=== PATIENT | male | born 1980 | race Caucasian/White ===

== ENCOUNTER 2016-06-23 20:22 | Observation (INO) | payer OTHER ==
[2016-06-23] MEDS ORDERED: chlordiazePOXIDE 25 MG CAP PO STA (20:53)
--- NOTE | 2016-06-23 21:07 | ED ---
General Adult HPI - General Chief complaint: Recheck/Abnormal Lab/Rx Stated complaint: hypothermia Time Seen by Provider: 06/23/16 20:39 Source: patient, RN notes reviewed Mode of arrival: ambulatory Limitations: no limitations - History of Present Illness Initial comments: This patient is a 36-year-old man who presents to be evaluated for exposure. Patient states he had been outside fishing, and had fall asleep. He also admits to having been drinking alcohol earlier. The patient states that when he woke he found that he was very cold and could not stop shaking. The patient denies any pain to the extremities. -: hour(s) Associated Symptoms: weakness Treatments Prior to Arrival: none - Related Data Home Medications Medication Instructions Recorded Confirmed Oahtvaerinxbay-WM-Ehappfreum 1 tab PO DAILY 06/23/16 06/23/16 [Folbic] Thiamine [Vitamin B-1] 100 mg PO BID 06/23/16 06/24/16 Previous Rx's Medication Instructions Recorded LORazepam [Ativan] 1 mg PO Q4HR PRN #30 tab 06/14/16 Allergies Allergy/AdvReac Type Severity Reaction Status Date / Time chocolate flavor Allergy Rash/Hives Verified 06/23/16 21:08 coconut oil Allergy Rash/Hives Verified 06/23/16 21:08 pineapple Allergy Rash/Hives Verified 06/23/16 21:08 Review of Systems ROS Statement: Those systems with pertinent positive or pertinent negative responses have been documented in the HPI. ROS Other: All systems not noted in ROS Statement are negative. Constitutional: Reports: chills, weakness. Denies: fever Respiratory: Denies: cough, dyspnea Cardiovascular: Denies: chest pain, syncope Gastrointestinal: Denies: abdominal pain, vomiting, diarrhea Genitourinary: Denies: dysuria, hematuria Musculoskeletal: Denies: back pain Skin: Denies: rash Neurological: Reports: weakness (Generalized). Denies: headache, paresthesias Past Medical History Past Medical History: Seizure Disorder Additional Past Medical History / Comment(s): VERTIGO IN PAST,ETOH ABUSE, WITHDRAWLS/DT"S. SEIZURE D/T ETOH. History of Any Multi-Drug Resistant Organisms: None Reported Past Surgical History: No Surgical Hx Reported Additional Past Surgical History / Comment(s): RT WRIST Past Anesthesia/Blood Transfusion Reactions: No Reported Reaction Additional Past Anesthesia/Blood Transfusion Reaction / Comment(s): CLAUSTERPHOBIA Past Psychological History: No Psychological Hx Reported Smoking Status: Never smoker Past Alcohol Use History: Abuse, Daily, Heavy Additional Past Alcohol Use History / Comment(s): UP TO CASE /DAY Past Drug Use History: None Reported - Past Family History Mother Family Medical History: Fibromyalgia, Rheumatoid Arthritis (RA) Father Family Medical History: Osteoarthritis (OA) Additional Family Medical History / Comment(s): BACK PROBLEMS General Exam Limitations: no limitations General appearance: alert, in no apparent distress, appears intoxicated Head exam: Present: atraumatic, normocephalic Eye exam: Present: normal appearance, nystagmus. Absent: scleral icterus, conjunctival injection ENT exam: Present: mucous membranes dry Neck exam: Present: normal inspection, full ROM Respiratory exam: Present: normal lung sounds bilaterally. Absent: respiratory distress, wheezes, rales, rhonchi, stridor Cardiovascular Exam: Present: regular rate, normal rhythm, normal heart sounds. Absent: systolic murmur, diastolic murmur, rubs, gallop GI/Abdominal exam: Present: soft. Absent: distended, tenderness, guarding, rebound, mass Extremities exam: Present: normal inspection, normal capillary refill, other ( The patient does not have any obvious areas of frostbite injury.). Absent: pedal edema, calf tenderness Back exam: Present: normal inspection. Absent: CVA tenderness (R), CVA tenderness (L) Skin exam: Present: warm, dry, intact, normal color, other (The patient does not have any obvious areas of frostbite injury. There is 1 approximately 2 cm area of blanched skin to the knee last backed of the great toe, but this does appear to be more consistent with a blister then with a frostbite). Absent: rash Course Vital Signs 06/23/16 06/23/16 06/23/16 20:44 21:12 22:15 Temperature 95.2 F L 95.5 F L 97.3 F L Pulse Rate 80 89 74 Respiratory 18 18 18 Rate Blood Pressure 133/69 137/72 111/54 O2 Sat by Pulse 100 98 96 Oximetry 06/23/16 22:53 Temperature 97.3 F L Pulse Rate 90 Respiratory 18 Rate Blood Pressure 104/53 O2 Sat by Pulse 98 Oximetry EKG Findings - EKG Results: EKG: interpreted by JIM HUMPHREYL, sinus rhythm (Rate 76 bpm), normal axis, normal QRS, normal ST/T - CO, Pacemaker, Normal: Normal tracing: normal tracing Medical Decision Making - Lab Data Result diagrams: 06/23/16 21:25 06/23/16 21:25 Lab Results 06/23/16 06/23/16 06/23/16 Range/Units 21:16 21:25 21:25 WBC 4.2 (3.8-10.6) k/uL RBC 4.90 (4.30-5.90) m/uL Hgb 15.1 (13.0-17.5) gm/dL Hct 47.7 (39.0-53.0) % MCV 97.3 (80.0-100.0) fL MCH 30.8 (25.0-35.0) pg MCHC 31.7 (31.0-37.0) g/dL RDW 14.3 (11.5-15.5) % Plt Count 356 D (150-450) k/uL Neutrophils % (Manual) 60.0 % Lymphocytes % (Manual) 34.0 % Monocytes % (Manual) 5.0 % Eosinophils % (Manual) 1.0 % Neutrophils # (Manual) 2.5 (1.3-7.7) k/uL Lymphocytes # (Manual) 1.4 (1.0-4.8) k/uL Monocytes # (Manual) 0.2 (0-1.0) k/uL Eosinophils # (Manual) 0.0 (0-0.7) k/uL Nucleated RBCs 0 (0-0) /100 WBC Manual Slide Review Performed RBC Morphology Normal Sodium 149 H (137-145) mmol/L Potassium 4.9 (3.5-5.1) mmol/L Chloride 103 (98-107) mmol/L Carbon Dioxide 30 (22-30) mmol/L Anion Gap 16 mmol/L BUN 7 L (9-20) mg/dL Creatinine 0.50 L (0.66-1.25) mg/dL Est GFR (MDRD) Af Amer >60 (>60 ml/min/1.73 sqM) Est GFR (MDRD) Non-Af >60 (>60 ml/min/1.73 sqM) Glucose 96 (74-99) mg/dL POC Glucose (mg/dL) 79 (75-99) mg/dL POC Glu [employer] ID Norma Johnson Calcium 9.2 (8.4-10.2) mg/dL Total Bilirubin 0.3 (0.2-1.3) mg/dL AST 71 H (17-59) U/L ALT 104 H (21-72) U/L Alkaline Phosphatase 69 (38-126) U/L Troponin I (0.000-0.034) ng/mL Total Protein 7.9 (6.3-8.2) g/dL Albumin 4.9 (3.5-5.0) g/dL Urine Color Urine Appearance (Clear) Urine pH (5.0-8.0) Ur Specific [place] (1.001-1.035) Urine Protein (Negative) Urine Glucose (UA) (Negative) Urine Ketones (Negative) Urine Blood (Negative) Urine Nitrate (Negative) Urine Bilirubin (Negative) Urine Urobilinogen (<2.0) mg/dL Ur Leukocyte Esterase (Negative) Urine WBC (0-5) /hpf Hyaline Casts (0-2) /lpf Granular Casts (0) /lpf Urine Mucus (None) /hpf Urine Opiates Screen (NotDetected) Ur Oxycodone Screen (NotDetected) Urine Methadone Screen (NotDetected) Ur Propoxyphene Screen (NotDetected) Ur Barbiturates Screen (NotDetected) U Tricyclic Antidepress (NotDetected) Ur Phencyclidine Scrn (NotDetected) Ur Amphetamines Screen (NotDetected) U Methamphetamines Scrn (NotDetected) U Benzodiazepines Scrn (NotDetected) Urine Cocaine Screen (NotDetected) U Marijuana (THC) Screen (NotDetected) Serum Alcohol 432 mg/dL 06/23/16 06/23/16 06/23/16 Range/Units 21:25 21:31 21:31 WBC (3.8-10.6) k/uL RBC (4.30-5.90) m/uL Hgb (13.0-17.5) gm/dL Hct (39.0-53.0) % MCV (80.0-100.0) fL MCH (25.0-35.0) pg MCHC (31.0-37.0) g/dL RDW (11.5-15.5) % Plt Count (150-450) k/uL Neutrophils % (Manual) % Lymphocytes % (Manual) % Monocytes % (Manual) % Eosinophils % (Manual) % Neutrophils # (Manual) (1.3-7.7) k/uL Lymphocytes # (Manual) (1.0-4.8) k/uL Monocytes # (Manual) (0-1.0) k/uL Eosinophils # (Manual) (0-0.7) k/uL Nucleated RBCs (0-0) /100 WBC Manual Slide Review RBC Morphology Sodium (137-145) mmol/L Potassium (3.5-5.1) mmol/L Chloride (98-107) mmol/L Carbon Dioxide (22-30) mmol/L Anion Gap mmol/L BUN (9-20) mg/dL Creatinine (0.66-1.25) mg/dL Est GFR (MDRD) Af Amer (>60 ml/min/1.73 sqM) Est GFR (MDRD) Non-Af (>60 ml/min/1.73 sqM) Glucose (74-99) mg/dL POC Glucose (mg/dL) (75-99) mg/dL POC Glu [employer] ID Calcium (8.4-10.2) mg/dL Total Bilirubin (0.2-1.3) mg/dL AST (17-59) U/L ALT (21-72) U/L Alkaline Phosphatase (38-126) U/L Troponin I <0.012 (0.000-0.034) ng/mL Total Protein (6.3-8.2) g/dL Albumin (3.5-5.0) g/dL Urine Color Light Yellow Urine Appearance Clear (Clear) Urine pH 5.0 (5.0-8.0) Ur Specific [place] 1.005 (1.001-1.035) Urine Protein 1+ H (Negative) Urine Glucose (UA) Negative (Negative) Urine Ketones Negative (Negative) Urine Blood Trace H (Negative) Urine Nitrate Negative (Negative) Urine Bilirubin Negative (Negative) Urine Urobilinogen <2.0 (<2.0) mg/dL Ur Leukocyte Esterase Negative (Negative) Urine WBC <1 (0-5) /hpf Hyaline Casts 8 H (0-2) /lpf Granular Casts 12 (0) /lpf Urine Mucus Rare H (None) /hpf Urine Opiates Screen Not Detected (NotDetected) Ur Oxycodone Screen Not Detected (NotDetected) Urine Methadone Screen Not Detected (NotDetected) Ur Propoxyphene Screen Not Detected (NotDetected) Ur Barbiturates Screen Not Detected (NotDetected) U Tricyclic Antidepress Not Detected (NotDetected) Ur Phencyclidine Scrn Not Detected (NotDetected) Ur Amphetamines Screen Not Detected (NotDetected) U Methamphetamines Scrn Not Detected (NotDetected) U Benzodiazepines Scrn Detected H (NotDetected) Urine Cocaine Screen Not Detected (NotDetected) U Marijuana (THC) Screen Not Detected (NotDetected) Serum Alcohol mg/dL Disposition Clinical Impression: Alcoholic intoxication, Alcohol withdrawal delirium, Hypothermia Disposition: ADMITTED IP TO THIS [facility] Condition: Fair
[2016-06-23 21:17] LABS: Glucose,Whole Blood 79 mg/dL (75-99)
[2016-06-23 21:29] LABS: Aty Lym Flag Slight; HCT 47.7 % (39.0-53.0); HDW 2.39; HGB 15.1 gm/dL (13.0-17.5); MCH 30.8 pg (25.0-35.0); MCHC 31.7 g/dL (31.0-37.0); MCV 97.3 fL (80.0-100.0); Mean Platelet Volume 6.8; RDW 14.3 % (11.5-15.5); WBC 4.2 k/uL (3.8-10.6); WBC (Perox) 4.15
[2016-06-23 21:38] LABS: ALT 104 U/L (21-72); AST 71 U/L (17-59); Alkaline Phosphatase 69 U/L (38-126); Anion Gap 16 mmol/L; Blood Urea Nitrogen 7 mg/dL (9-20); Calcium 9.2 mg/dL (8.4-10.2); Carbon Dioxide 30 mmol/L (22-30); Chloride 103 mmol/L (98-107); Glucose 96 mg/dL (74-99); Non-African American GFR(MDRD) >60 (>60 ml/min/1.73 sqM); Potassium 4.9 mmol/L (3.5-5.1); Sodium 149 mmol/L (137-145); Total Bilirubin 0.3 mg/dL (0.2-1.3); Total Protein 7.9 g/dL (6.3-8.2)
[2016-06-23 21:38] LABS: Appearance,Urine Clear (Clear); Bilirubin,Urine Negative (Negative); Glucose,Urine (UA) Negative (Negative); Granular Casts,Urine 12 /lpf (0); Ketones,Urine Negative (Negative); Leukocyte Esterase,Urine Negative (Negative); Mucus,Urine Rare /hpf; Nitrite,Urine Negative (Negative); Particle Count 1950; Protein,Urine 1+ (Negative); Specific Gravity,Urine 1.005 (1.001-1.035); UA Billing (MACRO vs. MICRO) MICRO; Urobilinogen,Urine <2.0 mg/dL (<2.0); WBC,Urine <1 /hpf (0-5)
[2016-06-23 21:49] LABS: Alcohol 432 mg/dL
--- NOTE | 2016-06-23 21:53 | XR ---
EXAMINATION TYPE: XR chest 1V portable DATE OF EXAM: 06/23/2016 9:28 PM COMPARISON: 06/12/2016 HISTORY: Altered mental status TECHNIQUE: Single frontal view of the chest is obtained. FINDINGS: Heart and mediastinum are normal. Lungs are clear. Diaphragm is normal. Bony thorax is int act. The pulmonary vascularity is normal. IMPRESSION: Normal chest, no change.
[2016-06-23 22:05] LABS: Add Differential Manual Differential
[2016-06-23 22:08] LABS: Nucleated Red Blood Cells 0 /100 WBC (0-0); Total Cells Counted 100
[2016-06-23 22:10] LABS: Manual Review Performed; RBC Morphology Normal
[2016-06-23] MEDS ORDERED: NALOXONE 0.4 MG/ML 1 ML VIAL IV PRN (22:11)
[2016-06-23] MEDS ORDERED: THIAMINE 100 MG/ML 2 ML VIAL IM STA (22:13)
[2016-06-23] MEDS ORDERED: LORazepam 2 MG/ML SYRINGE IV PRN ×2 (22:13)
[2016-06-23 23:43] VITALS: BMI 20.6
[2016-06-24] MEDS: THIAMINE 100 MG TAB PO SCH ×3 (00:26→17:57)
[2016-06-24] MEDS: LORazepam 2 MG/ML SYRINGE IV PRN ×5 (00:35→18:43)
[2016-06-24] MEDS: HEPARIN SODIUM,PORCINE 5,000 UNIT/ML 1 ML VIAL SQ SCH ×4 (01:38→20:18)
[2016-06-24] MEDS: DEXTROSE 5%-0.45% NACL 1,000 ML IV SCH ×4 (01:42→18:43)
[2016-06-24] MEDS ORDERED: ALPRAZolam 0.25 MG TAB PO PRN (16:32)
[2016-06-24] MEDS ORDERED: cloNIDine HCL 0.1 MG TAB PO PRN (16:32)
[2016-06-24] MEDS ORDERED: HYDROcodone/APAP 5-325MG 1 EACH TAB PO PRN (16:32)
[2016-06-24] MEDS ORDERED: TEMAZEPAM 15 MG CAP PO PRN (16:32)
[2016-06-24] MEDS ORDERED: HYDROmorphone 1 MG/ML 1 ML SYRINGE IVP PRN (16:33)
[2016-06-25] MEDS: DEXTROSE 5%-0.45% NACL 1,000 ML IV SCH (02:26)
--- NOTE | 2016-06-25 07:23 | HP ---
DATE OF ADMISSION: DATE OF SERVICE: 06/24/2016 CHIEF COMPLAINT: Hypothermia and cold exposure. HISTORY OF PRESENT ILLNESS: This 36-year-old gentleman with a past medical history of multiple medical problems including history of significant EtOH, history of seizure disorder, history of vertigo, history of claustrophobia, not being followed by primary physician in the outpatient setting apparently was heavy drinking. Patient apparently was out fishing with a eliza and patient was exposed to cold and could not stop shaking and the patient was taken to [facility] and admitted for further evaluation. The patient was drinking anywhere more than 10 beers a day. Patient also going through some withdraws at this time. PAST MEDICAL HISTORY: History of seizure disorder, history of EtOH, history of claustrophobia, history of vertigo, history of daily alcohol abuse. Medications 1. Thiamine 100 mg p.o. daily. 2. Ativan 1 mg q.4 p.r.n. 3. Folbic 1 p.o. daily. ALLERGIES: CHOCOLATE FLAVOR, COCONUT OIL, PINEAPPLE. FAMILY HISTORY: History of fibromyalgia, rheumatoid arthritis and back problems in the family. SOCIAL HISTORY: No history of smoking. Alcohol as mentioned. REVIEW OF SYSTEMS: ENT: No diminished hearing or vision. CARDIOVASCULAR: No angina. RESPIRATORY: As mentioned earlier. GI: No nausea. : No dysuria. NERVOUS SYSTEM: As mentioned earlier. ALLERGY/IMMUNOLOGY: No asthma. MUSCULOSKELETAL: As mentioned earlier. HEMATOLOGY: No history of anemia. ENDOCRINE: No history of diabetes or hypothyroidism. CONSTITUTIONAL: As mentioned earlier. DERMATOLOGY: Negative. RHEUMATOLOGY: Negative. PSYCHIATRY: As mentioned earlier. PHYSICAL EXAMINATION: Alert and oriented x3. Pulse is 99, blood pressure 130/72, respirations 18, temperature 95.5, pulse ox 90% on room air. HEENT: Conjunctivae normal. Oral mucosa moist. NECK: No jugular venous distention. No carotid bruit. No lymph node enlargement. CARDIOVASCULAR: S1 and S2, muffled. RESPIRATORY: Breath sounds diminished at the bases. A few scattered rhonchi and crackles. ABDOMEN: Soft, obese, nontender. No mass palpable. LEGS: No edema, no swelling. NERVOUS SYSTEM: Higher function as mentioned earlier. Moves all four limbs. Minimal shakes present. LYMPHATIC: No lymphadenopathy in the neck, axillae or groin. SKIN: No ulcer, rash or bleeding. LABS: Alcohol 432, AST 71 and 104. Sodium is 114. ASSESSMENT: 1. Acute alcohol intoxication. 2. Change in mental status, metabolic encephalopathy secondary to alcohol intoxication. 3. Hypothermia with cold exposure. 4. Increased AST, ALT, mild alcoholic hepatitis. 5. Hyponatremia secondary to dehydration present on admission, mild. 6. History of seizure disorder. 7. History of vertigo. 8. History of EtOH. 9. History of claustrophobia. 10. FULL CODE. RECOMMENDATIONS AND DISCUSSION: In this 36-year-old gentleman presented with multiple complex medical issues. Will monitor the patient closely. Continue the current medications and symptomatic treatment. Otherwise at this time I would recommend continuing with Ativan protocol, multivitamin supplementation, symptomatic treatment, alcohol cessation advice has been given. health program manager and discharge planning team to arrange rehab outpatient. Guarded prognosis. Further recommendations to follow. Also recommend the patient to follow up with the primary physician closely in the outpatient setting. YOAN
[2016-06-25 07:27] VITALS: BP 134/76; PULSE 76; RESP 20; TEMP 97.1
[2016-06-25] MEDS ORDERED: PANTOPRAZOLE 40 MG TABLET PO SCH (07:30)
[2016-06-25] MEDS: LORazepam 2 MG/ML SYRINGE IV PRN (08:01)
[2016-06-25] MEDS: HEPARIN SODIUM,PORCINE 5,000 UNIT/ML 1 ML VIAL SQ SCH (08:01)
[2016-06-25 09:29] LABS: Basophils % (A) 0 %; CH 31.2; CHCM 32.9; Eosinophils % (A) 0 %; HCT 42.5 % (39.0-53.0); HDW 2.45; HGB 13.9 gm/dL (13.0-17.5); Luc % (Auto) 1; Lymphocytes # (A) 0.5 k/uL (1.0-4.8); Lymphocytes % (A) 5 %; MCHC 32.6 g/dL (31.0-37.0); MCV 95.1 fL (80.0-100.0); Mean Platelet Volume 6.2; Monocytes # (A) 0.8 k/uL (0-1.0); Monocytes % (A) 8 %; Neutrophils # (A) 7.7 k/uL (1.3-7.7); Neutrophils % (A) 85 %; RBC 4.47 m/uL (4.30-5.90); RDW 13.6 % (11.5-15.5); WBC 9.1 k/uL (3.8-10.6); WBC (Perox) 9.26
[2016-06-25 09:55] LABS: Anion Gap 13 mmol/L; Blood Urea Nitrogen 5 mg/dL (9-20); Calcium 9.4 mg/dL (8.4-10.2); Carbon Dioxide 27 mmol/L (22-30); Chloride 101 mmol/L (98-107); Glucose 142 mg/dL (74-99); Non-African American GFR(MDRD) >60 (>60 ml/min/1.73 sqM); Potassium 3.7 mmol/L (3.5-5.1); Sodium 141 mmol/L (137-145)
[2016-06-25] MEDS: THIAMINE 100 MG TAB PO SCH (12:09)
[2016-06-25] MEDS ORDERED: POTASSIUM CHLORIDE ER 20 MEQ TAB.ER PO STA (12:36)
--- NOTE | 2016-06-26 17:07 | DS ---
DATE OF ADMISSION: 06/23/2016 DATE OF DISCHARGE: 06/25/2016 FINAL DIAGNOSES: 1. Acute alcohol intoxication. 2. Change in mental status, metabolic encephalopathy secondary to alcoholic intoxication. 3. Hypothermia and cold exposure secondary to alcoholism. 4. Increased AST, ALT, mild alcoholic hepatitis. 5. Hyponatremia, possibly secondary to dehydration present on admission, mild. 6. History of seizure disorder. 7. History of vertigo. 8. History of EtOH. 9. History of claustrophobia. 10. FULL CODE. DISCHARGE DISPOSITION: The patient will be discharged in a stable condition with guarded prognosis. HISTORY OF PRESENT ILLNESS: This 36-year-old gentleman with a past medical history of multiple medical problems admitted with hypothermia, cold exposure and as well as alcohol intoxication, treated symptomatically. Patient improved significantly. Patient being discharged in stable condition with guarded prognosis. The patient is being discharged in stable condition with guarded prognosis with the following: On exam, vitals are stable. CARDIOVASCULAR: S1, S2. ABDOMEN: Soft. NERVOUS SYSTEM: No numbness. DISCHARGE ADVICE: 1. Diet is cardiac. 2. Activity limited until follow-up. 3. Attend rehab. 4. No alcohol. MEDICATIONS: 1. Folic acid 1 mg p.o. daily. 2. Ativan 1 mg q.8 p.r.n. 3. Protonix 40 mg a daily. 4. Thiamine 100 mg p.o. daily. Follow up with Dr. Adan in 2 to 3 days. Once again, the patient will be discharged in stable condition with guarded prognosis.
== END 2016-06-25 14:14 | disposition home or self-care (01) ==
LOC: EC 20:22 → 4MS4W 22:21 → INTOOBSV 22:21
PROVIDERS: ADMIT Internal Medicine; ATTEND Internal Medicine
DX: F10.230 Alcohol dependence with withdrawal, uncomplicated (principal); F10.220 Alcohol dependence with intoxication, uncomplicated; G93.41 Metabolic encephalopathy; E87.1 Hypo-osmolality and hyponatremia; T68.XXXA Hypothermia, initial encounter; E86.0 Dehydration; F40.240 Claustrophobia; K70.10 Alcoholic hepatitis without ascites; Z79.899 Other long term (current) drug therapy; X31.XXXA Exposure to excessive natural cold, initial encounter; Z83.2 Family history of diseases of the blood and blood-forming organs and certain disorders involving the immune mechanism; Y90.8 Blood alcohol level of 240 mg/100 ml or more; Y92.828 Other wilderness area as the place of occurrence of the external cause
CPT/HCPCS: 99285; 36415; 93005; 80053; 80048; 84484; 85025 ×2; 81001; 80306; 80320; 71010; G0378 ×3; J2060 ×2; J1644 ×2; J3411; 96361; 96372; 96374; 96376

== ENCOUNTER 2016-06-26 14:22 | Emergency (ER) | payer OTHER ==
[2016-06-26 14:42] VITALS: RESP 18
[2016-06-26] MEDS ORDERED: SODIUM CHLORIDE 0.9% 1,000 ML IV STA (14:54)
[2016-06-26] MEDS ORDERED: THIAMINE 100 MG/ML 2 ML VIAL IM STA (14:54)
--- NOTE | 2016-06-26 14:58 | ED ---
General Adult HPI - General Chief complaint: Alcohol Stated complaint: ETOH Time Seen by Provider: 06/26/16 14:49 Source: patient, family, RN notes reviewed Mode of arrival: wheelchair Limitations: no limitations - History of Present Illness Initial comments: Patient is a pleasant 36-year-old male presenting to the emergency department with alcohol concerns. Patient admits to drinking around 15 beers daily. Occasional liquor as well. Patient denies drug use other than Ativan he has been prescribed. Sr. has plans of taking patient to [place] in a couple of days. Patient admits to having problems with alcohol. Patient admits to hearing voices the past few days. Patient denies suicidal thoughts. No physical complaints. Sr. is concerned when she went to pick him up today that he did not recognize who she was. Patient is able to state her name and relationship at this time. - Related Data Previous Rx's Medication Instructions Recorded Folic Acid 1 mg PO DAILY #30 tablet 06/25/16 LORazepam [Ativan] 1 mg PO Q8H PRN #20 tab 06/25/16 Pantoprazole [Protonix] 40 mg PO AC-BRKFST #30 tablet. 06/25/16 Thiamine [Vitamin B-1] 100 mg PO DAILY #0 06/25/16 Allergies Allergy/AdvReac Type Severity Reaction Status Date / Time chocolate flavor Allergy Rash/Hives Verified 06/26/16 14:42 coconut oil Allergy Rash/Hives Verified 06/26/16 14:42 pineapple Allergy Rash/Hives Verified 06/26/16 14:42 Review of Systems ROS Statement: Those systems with pertinent positive or pertinent negative responses have been documented in the HPI. ROS Other: All systems not noted in ROS Statement are negative. Constitutional: Denies: fever Eyes: Denies: eye pain ENT: Denies: ear pain Respiratory: Denies: dyspnea Cardiovascular: Denies: chest pain Endocrine: Denies: fatigue Gastrointestinal: Denies: abdominal pain Genitourinary: Denies: dysuria Musculoskeletal: Denies: back pain Neurological: Denies: as per HPI, weakness Psychiatric: Reports: auditory hallucinations Past Medical History Past Medical History: Seizure Disorder Additional Past Medical History / Comment(s): VERTIGO IN PAST,ETOH ABUSE, WITHDRAWLS/DT"S. SEIZURE D/T ETOH. History of Any Multi-Drug Resistant Organisms: None Reported Past Surgical History: No Surgical Hx Reported Additional Past Surgical History / Comment(s): RT WRIST Past Anesthesia/Blood Transfusion Reactions: No Reported Reaction Additional Past Anesthesia/Blood Transfusion Reaction / Comment(s): CLAUSTERPHOBIA Past Psychological History: No Psychological Hx Reported Smoking Status: Never smoker Past Alcohol Use History: Abuse, Daily, Heavy Additional Past Alcohol Use History / Comment(s): UP TO CASE /DAY Past Drug Use History: None Reported Additional Drug Use History / Comment(s): previous went to [facility] for alcohol abuse tx - Past Family History Mother Family Medical History: Fibromyalgia, Rheumatoid Arthritis (RA) Father Family Medical History: Osteoarthritis (OA) Additional Family Medical History / Comment(s): BACK PROBLEMS General Exam Limitations: no limitations General appearance: alert Head exam: Present: atraumatic, normocephalic Eye exam: Present: normal appearance, PERRL, nystagmus ENT exam: Present: normal oropharynx Neck exam: Present: normal inspection. Absent: tenderness Respiratory exam: Present: normal lung sounds bilaterally Cardiovascular Exam: Present: regular rate, normal rhythm GI/Abdominal exam: Present: soft. Absent: tenderness Extremities exam: Present: normal inspection Neurological exam: Present: alert, CN II-XII intact. Absent: motor sensory deficit Expanded Cranial nerves: EOM's Intact: Normal Motor strength exam: RUE: 5, LUE: 5, RLE: 5, LLE: 5 Eye Response: (4) open spontaneously Motor Response: (6) obeys commands Verbal Response: (5) oriented Psychiatric exam: Present: normal affect, normal mood Skin exam: Absent: rash Course Vital Signs 06/26/16 14:38 Temperature 97.4 F L Pulse Rate 88 Respiratory 18 Rate Blood Pressure 144/71 O2 Sat by Pulse 99 Oximetry Medical Decision Making - Medical Decision Making Patient reexamined and resting comfortably in bed. Patient remains alert and oriented 3 and appropriate. Sister is trying to get patient into [place] 1710: Patient's sister is coming back to take an [place]. - Lab Data Result diagrams: 06/26/16 15:30 06/26/16 15:30 Lab Results 06/26/16 06/26/16 06/26/16 Range/Units 15:30 15:30 15:30 WBC 6.7 (3.8-10.6) k/uL RBC 4.79 (4.30-5.90) m/uL Hgb 15.0 (13.0-17.5) gm/dL Hct 45.1 (39.0-53.0) % MCV 94.2 (80.0-100.0) fL MCH 31.4 (25.0-35.0) pg MCHC 33.3 (31.0-37.0) g/dL RDW 13.8 (11.5-15.5) % Plt Count 338 (150-450) k/uL Neutrophils % 73 % Lymphocytes % 17 % Monocytes % 6 % Eosinophils % 1 % Basophils % 1 % Neutrophils # 4.9 (1.3-7.7) k/uL Lymphocytes # 1.1 (1.0-4.8) k/uL Monocytes # 0.4 (0-1.0) k/uL Eosinophils # 0.1 (0-0.7) k/uL Basophils # 0.1 (0-0.2) k/uL PT 10.1 (9.0-12.0) sec INR 1.0 (<1.1) Sodium 150 H (137-145) mmol/L Potassium 4.3 (3.5-5.1) mmol/L Chloride 104 (98-107) mmol/L Carbon Dioxide 26 (22-30) mmol/L Anion Gap 20 mmol/L BUN 4 L (9-20) mg/dL Creatinine 0.66 (0.66-1.25) mg/dL Est GFR (MDRD) Af Amer >60 (>60 ml/min/1.73 sqM) Est GFR (MDRD) Non-Af >60 (>60 ml/min/1.73 sqM) Glucose 87 (74-99) mg/dL Calcium 9.9 (8.4-10.2) mg/dL Phosphorus 5.0 H (2.5-4.5) mg/dL Magnesium 2.2 (1.6-2.3) mg/dL Total Bilirubin 0.4 (0.2-1.3) mg/dL AST 51 (17-59) U/L ALT 76 H (21-72) U/L Alkaline Phosphatase 66 (38-126) U/L Total Protein 8.4 H (6.3-8.2) g/dL Albumin 5.1 H (3.5-5.0) g/dL Amylase 42 (30-110) U/L Lipase 110 (23-300) U/L Urine Color Urine Appearance (Clear) Urine pH (5.0-8.0) Ur Specific [place] (1.001-1.035) Urine Protein (Negative) Urine Glucose (UA) (Negative) Urine Ketones (Negative) Urine Blood (Negative) Urine Nitrate (Negative) Urine Bilirubin (Negative) Urine Urobilinogen (<2.0) mg/dL Ur Leukocyte Esterase (Negative) Urine Opiates Screen (NotDetected) Ur Oxycodone Screen (NotDetected) Urine Methadone Screen (NotDetected) Ur Propoxyphene Screen (NotDetected) Ur Barbiturates Screen (NotDetected) U Tricyclic Antidepress (NotDetected) Ur Phencyclidine Scrn (NotDetected) Ur Amphetamines Screen (NotDetected) U Methamphetamines Scrn (NotDetected) U Benzodiazepines Scrn (NotDetected) Urine Cocaine Screen (NotDetected) U Marijuana (THC) Screen (NotDetected) Serum Alcohol 375 mg/dL 06/26/16 Range/Units 16:09 WBC (3.8-10.6) k/uL RBC (4.30-5.90) m/uL Hgb (13.0-17.5) gm/dL Hct (39.0-53.0) % MCV (80.0-100.0) fL MCH (25.0-35.0) pg MCHC (31.0-37.0) g/dL RDW (11.5-15.5) % Plt Count (150-450) k/uL Neutrophils % % Lymphocytes % % Monocytes % % Eosinophils % % Basophils % % Neutrophils # (1.3-7.7) k/uL Lymphocytes # (1.0-4.8) k/uL Monocytes # (0-1.0) k/uL Eosinophils # (0-0.7) k/uL Basophils # (0-0.2) k/uL PT (9.0-12.0) sec INR (<1.1) Sodium (137-145) mmol/L Potassium (3.5-5.1) mmol/L Chloride (98-107) mmol/L Carbon Dioxide (22-30) mmol/L Anion Gap mmol/L BUN (9-20) mg/dL Creatinine (0.66-1.25) mg/dL Est GFR (MDRD) Af Amer (>60 ml/min/1.73 sqM) Est GFR (MDRD) Non-Af (>60 ml/min/1.73 sqM) Glucose (74-99) mg/dL Calcium (8.4-10.2) mg/dL Phosphorus (2.5-4.5) mg/dL Magnesium (1.6-2.3) mg/dL Total Bilirubin (0.2-1.3) mg/dL AST (17-59) U/L ALT (21-72) U/L Alkaline Phosphatase (38-126) U/L Total Protein (6.3-8.2) g/dL Albumin (3.5-5.0) g/dL Amylase (30-110) U/L Lipase (23-300) U/L Urine Color Colorless Urine Appearance Clear (Clear) Urine pH 5.0 (5.0-8.0) Ur Specific [place] 1.001 (1.001-1.035) Urine Protein Negative (Negative) Urine Glucose (UA) Negative (Negative) Urine Ketones Negative (Negative) Urine Blood Negative (Negative) Urine Nitrate Negative (Negative) Urine Bilirubin Negative (Negative) Urine Urobilinogen <2.0 (<2.0) mg/dL Ur Leukocyte Esterase Negative (Negative) Urine Opiates Screen Not Detected (NotDetected) Ur Oxycodone Screen Not Detected (NotDetected) Urine Methadone Screen Not Detected (NotDetected) Ur Propoxyphene Screen Not Detected (NotDetected) Ur Barbiturates Screen Not Detected (NotDetected) U Tricyclic Antidepress Not Detected (NotDetected) Ur Phencyclidine Scrn Not Detected (NotDetected) Ur Amphetamines Screen Not Detected (NotDetected) U Methamphetamines Scrn Not Detected (NotDetected) U Benzodiazepines Scrn Detected H (NotDetected) Urine Cocaine Screen Not Detected (NotDetected) U Marijuana (THC) Screen Not Detected (NotDetected) Serum Alcohol mg/dL - Radiology Data Radiology results: image reviewed (Computed tomography scan of the brain shows no acute abnormality) Disposition Clinical Impression: Alcoholic intoxication Disposition: HOME SELF-CARE Instructions: Alcohol Intoxication (ED), Alcohol Withdrawal (ED) Additional Instructions: Discontinue alcohol use. Return for change in mental status, worsening symptoms or any other concerns. Follow up with [place] immediately. Referrals: None,Stated [Primary Care Provider] - 1-2 days Laila Whiting MD [STAFF PHYSICIAN] - 1-2 days Time of Disposition: 17:14
[2016-06-26 15:50] LABS: Basophils # (A) 0.1 k/uL (0-0.2); Basophils % (A) 1 %; CH 31.2; CHCM 33.2; Eosinophils # (A) 0.1 k/uL (0-0.7); Eosinophils % (A) 1 %; HCT 45.1 % (39.0-53.0); HDW 2.43; Luc # (Auto) 0.21; Luc % (Auto) 3; Lymphocytes # (A) 1.1 k/uL (1.0-4.8); Lymphocytes % (A) 17 %; MCH 31.4 pg (25.0-35.0); MCHC 33.3 g/dL (31.0-37.0); MCV 94.2 fL (80.0-100.0); Monocytes # (A) 0.4 k/uL (0-1.0); Monocytes % (A) 6 %; Neutrophils # (A) 4.9 k/uL (1.3-7.7); Neutrophils % (A) 73 %; RBC 4.79 m/uL (4.30-5.90); RDW 13.8 % (11.5-15.5); WBC 6.7 k/uL (3.8-10.6); WBC (Perox) 6.79
[2016-06-26 15:56] LABS: Prothrombin Time 10.1 sec (9.0-12.0)
[2016-06-26 16:01] LABS: ALT 76 U/L (21-72); AST 51 U/L (17-59); Alkaline Phosphatase 66 U/L (38-126); Amylase 42 U/L (30-110); Anion Gap 20 mmol/L; Blood Urea Nitrogen 4 mg/dL (9-20); Calcium 9.9 mg/dL (8.4-10.2); Carbon Dioxide 26 mmol/L (22-30); Chloride 104 mmol/L (98-107); Glucose 87 mg/dL (74-99); Magnesium 2.2 mg/dL (1.6-2.3); Non-African American GFR(MDRD) >60 (>60 ml/min/1.73 sqM); Potassium 4.3 mmol/L (3.5-5.1); Sodium 150 mmol/L (137-145); Total Bilirubin 0.4 mg/dL (0.2-1.3); Total Protein 8.4 g/dL (6.3-8.2)
[2016-06-26 16:16] LABS: Alcohol 375 mg/dL
[2016-06-26 16:17] LABS: Appearance,Urine Clear (Clear); Bilirubin,Urine Negative (Negative); Glucose,Urine (UA) Negative (Negative); Ketones,Urine Negative (Negative); Leukocyte Esterase,Urine Negative (Negative); Nitrite,Urine Negative (Negative); Protein,Urine Negative (Negative); Specific Gravity,Urine 1.001 (1.001-1.035); UA Billing (MACRO vs. MICRO) CHEM; Urobilinogen,Urine <2.0 mg/dL (<2.0)
--- NOTE | 2016-06-26 16:18 | CT ---
EXAMINATION TYPE: CT brain wo con DATE OF EXAM: 06/26/2016 4:14 PM COMPARISON: 06/12/2016 HISTORY: Altered mental status. CT DLP: 1498 mGycm Automated exposure control for dose reduction was used. FINDINGS: There is no acute intracranial hemorrhage, mass effect, or midline shift identified. The ventricles and sulci are within normal limits in size. The globes are intact and the visualized sinuses are bettie ar. IMPRESSION: No acute intracranial hemorrhage, mass effect, or midline shift is seen.
[2016-06-26 17:31] VITALS: BP 115/58; PULSE 85
[2016-06-26 17:52] VITALS: TEMP 97.9
== END 2016-06-26 18:09 | disposition home or self-care (01) ==
LOC: EC 14:22
DX: F10.129 Alcohol abuse with intoxication, unspecified (principal); Z91.018 Allergy to other foods; Z79.899 Other long term (current) drug therapy
CPT/HCPCS: 96360 ×2; 96361 ×2; 96372 ×2; 99284 ×2; 36415; 80053; 82150; 83690; 83735; 84100; 85025; 85610; 81003; 80306; 80320; 70450; J3411

== ENCOUNTER 2016-12-16 20:29 | Observation (INO) | payer OTHER ==
--- NOTE | 2016-12-16 21:16 | ED ---
Alcohol HPI - General Chief Complaint: Alcohol Stated Complaint: ETOH Time Seen by Provider: 12/16/16 20:34 Source: patient, police, RN notes reviewed Mode of arrival: EMS Limitations: no limitations - History of Present Illness Initial Comments: 36-year-old male presents emergency room via EMS and police escort. Patient was found intoxicated and sleep on somebody's yard. Patient has no complaints at this time. Patient states that he was just fishing didn't intend to fall sleep but states he has been drinking all day. Patient states he only drank 3 beers oh. Patient denies any abdominal pain, nausea vomiting diarrhea constipation. Denies any fevers or chills. Patient denies any suicidal or homicidal thoughts. - Related Data Previous Rx's Medication Instructions Recorded Folic Acid 1 mg PO DAILY #30 tablet 06/25/16 Thiamine [Vitamin B-1] 100 mg PO DAILY #0 06/25/16 Allergies Allergy/AdvReac Type Severity Reaction Status Date / Time chocolate flavor Allergy Rash/Hives Verified 06/26/16 14:42 coconut oil Allergy Rash/Hives Verified 06/26/16 14:42 pineapple Allergy Rash/Hives Verified 06/26/16 14:42 Review of Systems ROS Statement: Those systems with pertinent positive or pertinent negative responses have been documented in the HPI. ROS Other: All systems not noted in ROS Statement are negative. Past Medical History Past Medical History: Seizure Disorder Additional Past Medical History / Comment(s): VERTIGO IN PAST,ETOH ABUSE, WITHDRAWLS/DT"S. SEIZURE D/T ETOH. History of Any Multi-Drug Resistant Organisms: None Reported Past Surgical History: No Surgical Hx Reported Additional Past Surgical History / Comment(s): RT WRIST Past Anesthesia/Blood Transfusion Reactions: No Reported Reaction Additional Past Anesthesia/Blood Transfusion Reaction / Comment(s): CLAUSTERPHOBIA Past Psychological History: No Psychological Hx Reported Smoking Status: Never smoker Past Alcohol Use History: Abuse, Daily, Heavy Past Drug Use History: None Reported - Past Family History Mother Family Medical History: Fibromyalgia, Rheumatoid Arthritis (RA) Father Family Medical History: Osteoarthritis (OA) Additional Family Medical History / Comment(s): BACK PROBLEMS General Exam Limitations: no limitations General appearance: alert, in no apparent distress, appears intoxicated Head exam: Present: atraumatic, normocephalic, normal inspection Respiratory exam: Present: normal lung sounds bilaterally. Absent: respiratory distress, wheezes, rales, rhonchi, stridor Cardiovascular Exam: Present: regular rate, normal rhythm, normal heart sounds. Absent: systolic murmur, diastolic murmur, rubs, gallop, clicks GI/Abdominal exam: Present: soft, normal bowel sounds. Absent: distended, tenderness, guarding, rebound, rigid Back exam: Absent: CVA tenderness (R), CVA tenderness (L) Neurological exam: Present: alert, oriented X3, CN II-XII intact Skin exam: Present: warm, dry, intact, normal color. Absent: rash Course Vital Signs 12/16/16 20:34 Temperature 97 F L Pulse Rate 91 Respiratory 18 Rate Blood Pressure 140/83 O2 Sat by Pulse 100 Oximetry Disposition Clinical Impression: Alcoholic intoxication Disposition: ADMITTED IP TO THIS HOSP Condition: Fair Referrals: None,Stated [Primary Care Provider] - 1-2 days
[2016-12-16] MEDS ORDERED: LORazepam 2 MG/ML SYRINGE IV PRN ×3 (22:58)
[2016-12-16] MEDS ORDERED: NALOXONE 0.4 MG/ML 1 ML VIAL IV PRN (22:59)
[2016-12-16] MEDS ORDERED: ONDANSETRON 4 MG/2 ML VIAL IVP PRN (22:59)
[2016-12-16] MEDS ORDERED: SODIUM CHLORIDE 0.9% 1,000 ML IV SCH (23:00)
[2016-12-16 23:09] LABS: Appearance,Urine Clear (Clear); Basophils % (A) 1 %; Bilirubin,Urine Negative (Negative); CH 31.2; CHCM 33.5; Eosinophils % (A) 1 %; Glucose,Urine (UA) Negative (Negative); HCT 47.3 % (39.0-53.0); HDW 2.45; HGB 15.1 gm/dL (13.0-17.5); Ketones,Urine Negative (Negative); Leukocyte Esterase,Urine Negative (Negative); Luc # (Auto) 0.11; Luc % (Auto) 3; Lymphocytes # (A) 1.3 k/uL (1.0-4.8); Lymphocytes % (A) 37 %; MCH 29.7 pg (25.0-35.0); MCHC 31.9 g/dL (31.0-37.0); MCV 93.2 fL (80.0-100.0); Mean Platelet Volume 5.9; Monocytes # (A) 0.2 k/uL (0-1.0); Monocytes % (A) 6 %; Neutrophils # (A) 1.9 k/uL (1.3-7.7); Neutrophils % (A) 52 %; Nitrite,Urine Negative (Negative); Protein,Urine Negative (Negative); RBC 5.07 m/uL (4.30-5.90); RDW 14.1 % (11.5-15.5); Specific Gravity,Urine 1.004 (1.001-1.035); UA Billing (MACRO vs. MICRO) CHEM; Urobilinogen,Urine <2.0 mg/dL (<2.0); WBC 3.6 k/uL (3.8-10.6); WBC (Perox) 3.68
[2016-12-16 23:14] VITALS: RESP 16
[2016-12-16 23:18] LABS: ALT 62 U/L (21-72); AST 55 U/L (17-59); Alkaline Phosphatase 69 U/L (38-126); Anion Gap 18 mmol/L; Blood Urea Nitrogen 11 mg/dL (9-20); Calcium 8.7 mg/dL (8.4-10.2); Carbon Dioxide 21 mmol/L (22-30); Chloride 108 mmol/L (98-107); Glucose 79 mg/dL (74-99); Non-African American GFR(MDRD) >60 (>60 ml/min/1.73 sqM); Potassium 4.1 mmol/L (3.5-5.1); Sodium 147 mmol/L (137-145); Total Bilirubin 0.1 mg/dL (0.2-1.3)
[2016-12-17 00:27] VITALS: BP 130/75; PULSE 93; TEMP 96.8
[2016-12-17 00:36] VITALS: BMI 19.2
[2016-12-18] MEDS ORDERED: THIAMINE 100 MG TAB PO SCH (12:00)
== END 2016-12-17 06:45 | disposition left against medical advice (07) ==
LOC: EC 20:29 → 4MS4W 22:59
PROVIDERS: ADMIT Hospitalist; ATTEND Hospitalist
DX: F10.129 Alcohol abuse with intoxication, unspecified (principal); R42 Dizziness and giddiness; G40.909 Epilepsy, unspecified, not intractable, without status epilepticus; Z91.02 Food additives allergy status
CPT/HCPCS: 82075; 99285; 36415; 80053; 83690; 85025; 81003; G0378 ×2

== ENCOUNTER 2017-01-20 08:58 | Emergency (ER) | payer OTHER ==
[2017-01-20 09:05] VITALS: RESP 18
[2017-01-20] MEDS ORDERED: SODIUM CHLORIDE 0.9% 1,000 ML with MVI, ADULT NO.4 WITH VIT K 10 ML, THIAMINE 100 MG, F... IV ONE ×4 (09:27)
--- NOTE | 2017-01-20 09:28 | ED ---
General Adult HPI - General Chief complaint: Seizure Stated complaint: Seizure Time Seen by Provider: 01/20/17 09:00 Source: EMS, RN notes reviewed Mode of arrival: EMS Limitations: no limitations - History of Present Illness Initial comments: This is a 36-year-old male who is an alcoholic by his own admission. Patient states that he had a seizure this morning that he hasn't drank much the last few days. Patient was found in the park and brought to the emergency department. Patient currently has no complaints whatsoever patient states he wants to go to rehab again when he has time. Patient denies any headache patient denies numbness weakness. Patient denies lightheadedness or dizziness. Patient denies any chest pain difficulty breathing shortness breath. Patient denies abdominal pain patient denies nausea vomiting diarrhea. - Related Data Home Medications Medication Instructions Recorded Confirmed No Known Home Medications [No 01/20/17 01/20/17 Known Home Medications] Allergies Allergy/AdvReac Type Severity Reaction Status Date / Time chocolate flavor Allergy Rash/Hives Verified 01/20/17 09:07 coconut oil Allergy Rash/Hives Verified 01/20/17 09:07 pineapple Allergy Rash/Hives Verified 01/20/17 09:07 Review of Systems ROS Statement: Those systems with pertinent positive or pertinent negative responses have been documented in the HPI. ROS Other: All systems not noted in ROS Statement are negative. Past Medical History Past Medical History: Seizure Disorder Additional Past Medical History / Comment(s): VERTIGO IN PAST,ETOH ABUSE, WITHDRAWLS/DT"S. SEIZURE D/T ETOH in 2015 History of Any Multi-Drug Resistant Organisms: None Reported Past Surgical History: No Surgical Hx Reported Additional Past Surgical History / Comment(s): RT WRIST SX Past Anesthesia/Blood Transfusion Reactions: No Reported Reaction Additional Past Anesthesia/Blood Transfusion Reaction / Comment(s): CLAUSTERPHOBIA Past Psychological History: No Psychological Hx Reported Smoking Status: Never smoker Past Alcohol Use History: Daily, Heavy Past Drug Use History: None Reported - Past Family History Mother Family Medical History: Fibromyalgia, Rheumatoid Arthritis (RA) Father Family Medical History: Osteoarthritis (OA) Additional Family Medical History / Comment(s): BACK PROBLEMS General Exam - General Exam Comments Initial Comments: GENERAL: Patient is well-developed and well-nourished. Patient is nontoxic and well- hydrated and is in no acute distress. Patient is somewhat disheveled from laying around the park is quite a bit of dirt on them. ENT: Neck is soft and supple. No significant lymphadenopathy is noted. Oropharynx is clear. Moist mucous membranes. Neck has full range of motion without eliciting any pain. EYES: The sclera were anicteric and conjunctiva were pink and moist. Extraocular movements were intact and pupils were equal round and reactive to light. Eyelids were unremarkable. PULMONARY: Unlabored respirations. Good breath sounds bilaterally. No audible rales rhonchi or wheezing was noted. CARDIOVASCULAR: There is a regular rate and rhythm without any murmurs gallops or rubs. ABDOMEN: Soft and nontender with normal bowel sounds. No palpable organomegaly was noted. There is no palpable pulsatile mass. SKIN: Skin is clear with no lesions or rashes and otherwise unremarkable. NEUROLOGIC: Patient is alert and oriented x3. Cranial nerves II through XII are grossly intact. Motor and sensory are also intact. Normal speech, volume and content. Symmetrical smile. MUSCULOSKELETAL: Normal extremities with adequate strength and full range of motion. No lower extremity swelling or edema. No calf tenderness. LYMPHATICS: No significant lymphadenopathy is noted PSYCHIATRIC: Normal psychiatric evaluation. Limitations: no limitations Course Vital Signs 01/20/17 09:00 Temperature 99.2 F Pulse Rate 99 Respiratory 18 Rate Blood Pressure 154/80 O2 Sat by Pulse 97 Oximetry Medical Decision Making - Medical Decision Making EKG shows normal sinus rhythm at 87 bpm RI interval is 162 QRS is 92 QT interval is 414 QTC is 498 per patient's EKG shows no ST segment elevation or depression or T-wave abnormality is noted. Patient is alert and oriented and has no complaints at this time. - Lab Data Result diagrams: 01/20/17 09:07 01/20/17 09:07 Lab Results 01/20/17 01/20/17 01/20/17 Range/Units 09:07 09:07 09:07 WBC 4.3 (3.8-10.6) k/uL RBC 4.06 L (4.30-5.90) m/uL Hgb 12.9 L (13.0-17.5) gm/dL Hct 37.7 L (39.0-53.0) % MCV 92.8 (80.0-100.0) fL MCH 31.8 (25.0-35.0) pg MCHC 34.3 (31.0-37.0) g/dL RDW 14.9 (11.5-15.5) % Plt Count 50 L* D (150-450) k/uL Neutrophils % (Manual) 74.0 % Band Neutrophils % 1.0 % Lymphocytes % (Manual) 9.0 % Monocytes % (Manual) 16.0 % Neutrophils # (Manual) 3.2 (1.3-7.7) k/uL Lymphocytes # (Manual) 0.4 L (1.0-4.8) k/uL Monocytes # (Manual) 0.7 (0-1.0) k/uL Nucleated RBCs 0 (0-0) /100 WBC Manual Slide Review Performed RBC Morphology Normal PT 10.8 (9.0-12.0) sec INR 1.1 (<1.2) APTT 25.0 (22.0-30.0) sec Sodium 133 L (137-145) mmol/L Potassium 3.2 L (3.5-5.1) mmol/L Chloride 95 L (98-107) mmol/L Carbon Dioxide 16 L (22-30) mmol/L Anion Gap 22 mmol/L BUN 2 L (9-20) mg/dL Creatinine 0.64 L (0.66-1.25) mg/dL Est GFR (MDRD) Af Amer >60 (>60 ml/min/1.73 sqM) Est GFR (MDRD) Non-Af >60 (>60 ml/min/1.73 sqM) Glucose 119 H (74-99) mg/dL POC Glucose (mg/dL) (75-99) mg/dL POC Glu Netsuite Consultant ID Calcium 8.7 (8.4-10.2) mg/dL Total Bilirubin 1.3 (0.2-1.3) mg/dL AST 376 H (17-59) U/L ALT 262 H (21-72) U/L Alkaline Phosphatase 80 (38-126) U/L Ammonia (<30) umol/L Total Protein 6.8 (6.3-8.2) g/dL Albumin 4.4 (3.5-5.0) g/dL Urine Opiates Screen (NotDetected) Ur Oxycodone Screen (NotDetected) Urine Methadone Screen (NotDetected) Ur Propoxyphene Screen (NotDetected) Ur Barbiturates Screen (NotDetected) U Tricyclic Antidepress (NotDetected) Ur Phencyclidine Scrn (NotDetected) Ur Amphetamines Screen (NotDetected) U Methamphetamines Scrn (NotDetected) U Benzodiazepines Scrn (NotDetected) Urine Cocaine Screen (NotDetected) U Marijuana (THC) Screen (NotDetected) 01/20/17 01/20/17 01/20/17 Range/Units 09:30 09:36 09:41 WBC (3.8-10.6) k/uL RBC (4.30-5.90) m/uL Hgb (13.0-17.5) gm/dL Hct (39.0-53.0) % MCV (80.0-100.0) fL MCH (25.0-35.0) pg MCHC (31.0-37.0) g/dL RDW (11.5-15.5) % Plt Count (150-450) k/uL Neutrophils % (Manual) % Band Neutrophils % % Lymphocytes % (Manual) % Monocytes % (Manual) % Neutrophils # (Manual) (1.3-7.7) k/uL Lymphocytes # (Manual) (1.0-4.8) k/uL Monocytes # (Manual) (0-1.0) k/uL Nucleated RBCs (0-0) /100 WBC Manual Slide Review RBC Morphology PT (9.0-12.0) sec INR (<1.2) APTT (22.0-30.0) sec Sodium (137-145) mmol/L Potassium (3.5-5.1) mmol/L Chloride (98-107) mmol/L Carbon Dioxide (22-30) mmol/L Anion Gap mmol/L BUN (9-20) mg/dL Creatinine (0.66-1.25) mg/dL Est GFR (MDRD) Af Amer (>60 ml/min/1.73 sqM) Est GFR (MDRD) Non-Af (>60 ml/min/1.73 sqM) Glucose (74-99) mg/dL POC Glucose (mg/dL) 127 H (75-99) mg/dL POC Glu Netsuite Consultant ID Jo Ann Richards Calcium (8.4-10.2) mg/dL Total Bilirubin (0.2-1.3) mg/dL AST (17-59) U/L ALT (21-72) U/L Alkaline Phosphatase (38-126) U/L Ammonia 31 H (<30) umol/L Total Protein (6.3-8.2) g/dL Albumin (3.5-5.0) g/dL Urine Opiates Screen Not Detected (NotDetected) Ur Oxycodone Screen Not Detected (NotDetected) Urine Methadone Screen Not Detected (NotDetected) Ur Propoxyphene Screen Not Detected (NotDetected) Ur Barbiturates Screen Not Detected (NotDetected) U Tricyclic Antidepress Not Detected (NotDetected) Ur Phencyclidine Scrn Not Detected (NotDetected) Ur Amphetamines Screen Not Detected (NotDetected) U Methamphetamines Scrn Not Detected (NotDetected) U Benzodiazepines Scrn Not Detected (NotDetected) Urine Cocaine Screen Not Detected (NotDetected) U Marijuana (THC) Screen Not Detected (NotDetected) Disposition Clinical Impression: Generalized seizure, Alcoholism Disposition: HOME SELF-CARE Instructions: Alcohol Dependence (ED) Referrals: None,Stated [Primary Care Provider] - 1-2 days Time of Disposition: 10:29
[2017-01-20 09:37] LABS: Glucose,Whole Blood 127 mg/dL (75-99)
[2017-01-20 09:46] LABS: INR 1.1 (<1.2); Prothrombin Time 10.8 sec (9.0-12.0)
[2017-01-20 09:54] LABS: Aty Lym Flag Slight; CH 30.9; CHCM 33.3; HCT 37.7 % (39.0-53.0); HDW 2.37; HGB 12.9 gm/dL (13.0-17.5); MCH 31.8 pg (25.0-35.0); MCHC 34.3 g/dL (31.0-37.0); MCV 92.8 fL (80.0-100.0); Mean Platelet Volume 7.2; RBC 4.06 m/uL (4.30-5.90); RDW 14.9 % (11.5-15.5); WBC 4.3 k/uL (3.8-10.6); WBC (Perox) 4.41
[2017-01-20 09:59] LABS: Add Differential Manual Differential
--- NOTE | 2017-01-20 10:00 | XR ---
EXAMINATION TYPE: XR chest 2V DATE OF EXAM: 01/20/2017 COMPARISON: Chest x-ray June 23, 2016. HISTORY: Seizure today. Altered mental status. TECHNIQUE: Frontal and lateral views of the chest are obtained. FINDINGS: There is no focal air space opacity, pleural effusion, or pneumothorax seen. The cardiac silhouette size is within normal limits. The osseous structures are intact. IMPRESSION: No acute cardiopulmonary process. No significant change from prior.
[2017-01-20 10:04] LABS: ALT 262 U/L (21-72); AST 376 U/L (17-59); Alkaline Phosphatase 80 U/L (38-126); Anion Gap 22 mmol/L; Blood Urea Nitrogen 2 mg/dL (9-20); Calcium 8.7 mg/dL (8.4-10.2); Carbon Dioxide 16 mmol/L (22-30); Chloride 95 mmol/L (98-107); Glucose 119 mg/dL (74-99); Non-African American GFR(MDRD) >60 (>60 ml/min/1.73 sqM); Potassium 3.2 mmol/L (3.5-5.1); Sodium 133 mmol/L (137-145); Total Bilirubin 1.3 mg/dL (0.2-1.3); Total Protein 6.8 g/dL (6.3-8.2)
[2017-01-20 10:06] LABS: Nucleated Red Blood Cells 0 /100 WBC (0-0); Total Cells Counted 100
[2017-01-20 10:08] LABS: Manual Review Performed; RBC Morphology Normal
[2017-01-20] MEDS ORDERED: LACTULOSE 20 GM/30 ML CUP PO ONE (10:28)
[2017-01-20 10:44] VITALS: BP 142/76; PULSE 83; TEMP 99.1
[2017-01-20] MEDS ORDERED: LORazepam 1 MG TAB PO STA (10:49)
== END 2017-01-20 10:57 | disposition home or self-care (01) ==
LOC: EC 08:58
DX: G40.409 Other generalized epilepsy and epileptic syndromes, not intractable, without status epilepticus (principal); F10.20 Alcohol dependence, uncomplicated; Z91.018 Allergy to other foods; Z91.02 Food additives allergy status
CPT/HCPCS: 36415; 93005; 80053; 82140; 85025; 85610; 85730; 80306; 71020; 99285; 96365; J3411

== ENCOUNTER 2017-02-07 12:45 | Emergency (ER) | payer OTHER ==
[2017-02-07 12:57] VITALS: TEMP 98.2
--- NOTE | 2017-02-07 13:36 | ED ---
Alcohol HPI - General Chief Complaint: Alcohol Stated Complaint: ETOH Time Seen by Provider: 02/07/17 12:45 Source: patient, EMS, RN notes reviewed Mode of arrival: EMS Limitations: no limitations - History of Present Illness Initial Comments: This a 36-year-old male with a history of chronic back pain who was noted to be stumbling in a local park. He was brought in for evaluation as per request of police. Patient complains of back pain but no head neck or other pain the pain in his back is not new. He has a blurry vision he does admit to drinking alcohol but states he hasn't had any since yesterday. He does state he took a pain medication that his friend gave him. He relates that is reasonable he fell. No fevers chills nausea vomiting or other symptoms patient does state he feels shaky. Complaint: alcohol intoxication, alcohol dependence - Related Data Home Medications Medication Instructions Recorded Confirmed No Known Home Medications [No 01/20/17 02/07/17 Known Home Medications] Allergies Allergy/AdvReac Type Severity Reaction Status Date / Time chocolate flavor Allergy Rash/Hives Verified 02/07/17 13:05 coconut oil Allergy Rash/Hives Verified 02/07/17 13:05 pineapple Allergy Rash/Hives Verified 02/07/17 13:05 Review of Systems ROS Statement: Those systems with pertinent positive or pertinent negative responses have been documented in the HPI. ROS Other: All systems not noted in ROS Statement are negative. Past Medical History Past Medical History: Seizure Disorder Additional Past Medical History / Comment(s): VERTIGO IN PAST,ETOH ABUSE, WITHDRAWLS/DT"S. SEIZURE D/T ETOH in 2015 History of Any Multi-Drug Resistant Organisms: None Reported Past Surgical History: No Surgical Hx Reported Additional Past Surgical History / Comment(s): RT WRIST SX Past Anesthesia/Blood Transfusion Reactions: No Reported Reaction Additional Past Anesthesia/Blood Transfusion Reaction / Comment(s): CLAUSTERPHOBIA Past Psychological History: No Psychological Hx Reported Smoking Status: Never smoker Past Alcohol Use History: Abuse, Daily, Heavy Past Drug Use History: None Reported - Past Family History Mother Family Medical History: Fibromyalgia, Rheumatoid Arthritis (RA) Father Family Medical History: Osteoarthritis (OA) Additional Family Medical History / Comment(s): BACK PROBLEMS General Exam - General Exam Comments Initial Comments: This a well-developed well-nourished awake alert male he does have the smell of alcohol conjoiners on his breath Limitations: no limitations General appearance: alert, in no apparent distress Head exam: Present: atraumatic, normocephalic, normal inspection Eye exam: Present: normal appearance, PERRL, EOMI. Absent: scleral icterus, conjunctival injection, periorbital swelling ENT exam: Present: normal exam, mucous membranes moist Neck exam: Present: normal inspection. Absent: tenderness, meningismus, lymphadenopathy Respiratory exam: Present: normal lung sounds bilaterally. Absent: respiratory distress, wheezes, rales, rhonchi, stridor Cardiovascular Exam: Present: regular rate, normal rhythm, normal heart sounds. Absent: systolic murmur, diastolic murmur, rubs, gallop, clicks GI/Abdominal exam: Present: soft, normal bowel sounds. Absent: distended, tenderness, guarding, rebound, rigid Extremities exam: Present: normal inspection, full ROM, normal capillary refill. Absent: tenderness, pedal edema, joint swelling, calf tenderness Back exam: Present: normal inspection Neurological exam: Present: alert, oriented X3, CN II-XII intact Psychiatric exam: Present: normal affect, normal mood Skin exam: Present: warm, dry, intact, normal color. Absent: rash Course Vital Signs 02/07/17 12:51 Temperature 98.2 F Pulse Rate 130 H Respiratory 20 Rate Blood Pressure 161/97 O2 Sat by Pulse 96 Oximetry Medical Decision Making - Medical Decision Making Patient was observed in emergency department is awake alert oriented [address] without any difficulty whatsoever he is not suicidal or homicidal he is requesting to be discharged he said his current baseline he will be discharged - Lab Data Lab Results 02/07/17 Range/Units 13:40 Urine Opiates Screen Detected H (NotDetected) Ur Oxycodone Screen Not Detected (NotDetected) Urine Methadone Screen Not Detected (NotDetected) Ur Propoxyphene Screen Not Detected (NotDetected) Ur Barbiturates Screen Not Detected (NotDetected) U Tricyclic Antidepress Not Detected (NotDetected) Ur Phencyclidine Scrn Not Detected (NotDetected) Ur Amphetamines Screen Not Detected (NotDetected) U Methamphetamines Scrn Detected H (NotDetected) U Benzodiazepines Scrn Not Detected (NotDetected) Urine Cocaine Screen Not Detected (NotDetected) U Marijuana (THC) Screen Not Detected (NotDetected) Disposition Clinical Impression: Alcohol abuse, Alcoholism Disposition: HOME SELF-CARE Condition: Good Instructions: Alcohol Intoxication (ED) Referrals: None,Stated [Primary Care Provider] - 1-2 days
[2017-02-07 15:48] VITALS: BP 145/93; PULSE 115; RESP 18
== END 2017-02-07 15:53 | disposition home or self-care (01) ==
LOC: EC 12:45
DX: F10.20 Alcohol dependence, uncomplicated (principal); M54.9 Dorsalgia, unspecified; G89.29 Other chronic pain; Z91.018 Allergy to other foods
CPT/HCPCS: 80306; 82075; 99284

== ENCOUNTER 2017-08-14 19:23 | Emergency (ER) | payer OTHER ==
[2017-08-14 19:33] VITALS: RESP 18; TEMP 97.6
--- NOTE | 2017-08-14 20:27 | ED ---
URI HPI - General Chief Complaint: Upper Respiratory Infection Stated Complaint: ALVERTO Time Seen by Provider: 08/14/17 20:00 Source: patient, RN notes reviewed, old records reviewed Mode of arrival: wheelchair Limitations: no limitations - History of Present Illness Initial Comments: 37-year-old male with a history of alcoholism presents today with 1 week of cough. He reports that discussing better but is concerned of the length of he' s been coughing. Patient states these concerning may have pneumonia. He states is been yellow-green sputum. Patient has had no history of smoking. He denies any specific chest pain and down pain nausea or vomiting. Patient denies any recent fever, chills, shortness of breath, chest pain, back pain, abdominal pain, nausea vomiting, numbness or tingling, dysuria or hematuria, constipation or diarrhea, headaches or visual changes, or any other current symptoms - Related Data Previous Rx's Medication Instructions Recorded Azithromycin [Zithromax Z-pack] 250 mg PO DIRECTED #6 tab 08/14/17 Promethazine/Dextromethorphan 5 ml PO TID #120 ml 08/14/17 [Phenergan DM Syrup] methylPREDNISolone Dose Pack 4 mg PO DIRECTED #21 package 08/14/17 [Medrol Dose Pack] Allergies Allergy/AdvReac Type Severity Reaction Status Date / Time chocolate flavor Allergy Rash/Hives Verified 08/14/17 20:09 coconut oil Allergy Rash/Hives Verified 08/14/17 20:09 pineapple Allergy Rash/Hives Verified 08/14/17 20:09 Review of Systems ROS Statement: Those systems with pertinent positive or pertinent negative responses have been documented in the HPI. ROS Other: All systems not noted in ROS Statement are negative. Past Medical History Past Medical History: Seizure Disorder Additional Past Medical History / Comment(s): VERTIGO IN PAST,ETOH ABUSE, WITHDRAWLS/DT"S. SEIZURE D/T ETOH in 2016 History of Any Multi-Drug Resistant Organisms: None Reported Past Surgical History: No Surgical Hx Reported Additional Past Surgical History / Comment(s): RT WRIST SX Past Anesthesia/Blood Transfusion Reactions: No Reported Reaction Additional Past Anesthesia/Blood Transfusion Reaction / Comment(s): CLAUSTERPHOBIA Past Psychological History: No Psychological Hx Reported Smoking Status: Never smoker Past Alcohol Use History: Abuse, Daily, Heavy Past Drug Use History: None Reported - Past Family History Mother Family Medical History: Fibromyalgia, Rheumatoid Arthritis (RA) Father Family Medical History: Osteoarthritis (OA) Additional Family Medical History / Comment(s): BACK PROBLEMS General Exam - General Exam Comments Initial Comments: Physical is a 37-year-old male. No distress. Limitations: no limitations General appearance: alert, in no apparent distress Head exam: Present: atraumatic, normocephalic, normal inspection Eye exam: Present: normal appearance, PERRL, EOMI. Absent: scleral icterus, conjunctival injection, periorbital swelling ENT exam: Present: normal exam, mucous membranes moist Neck exam: Present: normal inspection. Absent: tenderness, meningismus, lymphadenopathy Respiratory exam: Present: normal lung sounds bilaterally, other (Patient is a productive cough.). Absent: respiratory distress, wheezes, rales, rhonchi, stridor Cardiovascular Exam: Present: regular rate, normal rhythm, normal heart sounds. Absent: systolic murmur, diastolic murmur, rubs, gallop, clicks GI/Abdominal exam: Present: soft, normal bowel sounds. Absent: distended, tenderness, guarding, rebound, rigid Extremities exam: Present: normal inspection, full ROM, normal capillary refill. Absent: tenderness, pedal edema, joint swelling, calf tenderness Back exam: Present: normal inspection Neurological exam: Present: alert, oriented X3, CN II-XII intact Psychiatric exam: Present: normal affect, normal mood Skin exam: Present: warm, dry, intact, normal color. Absent: rash Course Vital Signs 08/14/17 19:30 Temperature 97.6 F Pulse Rate 81 Respiratory 18 Rate Blood Pressure 137/83 O2 Sat by Pulse 100 Oximetry Medical Decision Making - Medical Decision Making 37-year-old male history of alcohol some presents emergency Department with 1 week of cough. No recent hospitalizations. He reports nonproductive cough. CV is no significant wheezing on exam. Lungs are relatively clear. He does have a shallow productive cough though this time. He is a nonsmoker. Chest x- ray was reviewed. He was started on azithromycin and Medrol Dosepak for bronchitis. Discussed following up with primary care physician. All questions were answered and return parameters were discussed. - Radiology Data Radiology results: report reviewed Chest x-rays negative for any acute process. Disposition Clinical Impression: Bronchitis Disposition: HOME SELF-CARE Condition: Good Instructions: Upper Respiratory Infection (ED) Additional Instructions: Patient advised to take the medications as prescribed. Follow-up with primary care physician. Return to emergency department if any alarming signs or symptoms occur. Prescriptions: Azithromycin [Zithromax Z-pack] 250 mg PO DIRECTED #6 tab methylPREDNISolone Dose Pack [Medrol Dose Pack] 4 mg PO DIRECTED #21 package Promethazine/Dextromethorphan [Phenergan DM Syrup] 5 ml PO TID #120 ml Referrals: None,Stated [Primary Care Provider] - 1-2 days Laila Whiting MD [STAFF PHYSICIAN] - 1-2 days Time of Disposition: 20:28
[2017-08-14] MEDS ORDERED: AZITHROMYCIN 500 MG TAB PO STA (20:29)
[2017-08-14] MEDS ORDERED: PROMETHAZ-COD 6.25-10 MG/5 ML 5 ML CUP PO STA (20:30)
[2017-08-14] MEDS ORDERED: predniSONE 50 MG TAB PO STA (20:30)
--- NOTE | 2017-08-14 21:05 | XR ---
EXAMINATION: XR chest 2V DATE AND TIME: 08/14/2017 8:16 PM ORDERING PROVIDER: Meghan Montano CLINICAL INDICATION: Pain; productive cough TECHNIQUE: PA and lateral COMPARISON: 05/29/2017 DESCRIPTION: The lungs are clear. The pleural spaces are negative. The cardiac silhouette is not enlarged. The mediastinal and pleural silhouettes are unremarkable. The skeletal structures are intact without focal findings. The soft tissues are unremarkable. IMPRESSION: NO ACUTE PROCESS.
[2017-08-14 21:15] VITALS: BP 167/99; PULSE 91
== END 2017-08-14 21:15 | disposition home or self-care (01) ==
LOC: EC 19:23
DX: J40 Bronchitis, not specified as acute or chronic (principal); Z91.018 Allergy to other foods
CPT/HCPCS: 71046; 99284; J7512

== ENCOUNTER 2017-09-12 12:08 | Emergency (ER) | payer OTHER ==
[2017-09-12 12:57] VITALS: BP 171/89; PULSE 98; RESP 18; TEMP 98
--- NOTE | 2017-09-12 13:13 | ED ---
General Adult HPI - General Chief complaint: Extremity Problem,Nontraumatic Stated complaint: Foot pain Time Seen by Provider: 09/12/17 12:56 Source: patient, RN notes reviewed Mode of arrival: ambulatory Limitations: no limitations - History of Present Illness Initial comments: 37-year-old male presents the emergency department for a chief complaint of bilateral foot pain. Patient states he was outside for a couple days about a week ago fishing. Patient states that this time his feet were wet and cold. He didn't noticed pain right away during the fishing trip or right after the fishing trip. However Patient states that a few days later he started noticing pain in his feet bilaterally. Patient states it hurts both his feet bilaterally toe walk on. Patient states he wanted to come to the emergency department to make sure nothing serious was going on. Patient denies pain in the knee or hip. Patient denies shortness of breath, chest pain, or abdominal pain. - Related Data Home Medications Medication Instructions Recorded Confirmed No Known Home Medications [No 09/12/17 09/12/17 Known Home Medications] Allergies Allergy/AdvReac Type Severity Reaction Status Date / Time chocolate flavor Allergy Rash/Hives Verified 09/12/17 12:54 coconut oil Allergy Rash/Hives Verified 09/12/17 12:54 pineapple Allergy Rash/Hives Verified 09/12/17 12:54 Review of Systems ROS Statement: Those systems with pertinent positive or pertinent negative responses have been documented in the HPI. ROS Other: All systems not noted in ROS Statement are negative. Past Medical History Past Medical History: Seizure Disorder Additional Past Medical History / Comment(s): VERTIGO IN PAST,ETOH ABUSE, WITHDRAWLS/DT"S. SEIZURE D/T ETOH in 2016 History of Any Multi-Drug Resistant Organisms: None Reported Past Surgical History: No Surgical Hx Reported Additional Past Surgical History / Comment(s): RT WRIST SX Past Anesthesia/Blood Transfusion Reactions: No Reported Reaction Additional Past Anesthesia/Blood Transfusion Reaction / Comment(s): CLAUSTERPHOBIA Past Psychological History: No Psychological Hx Reported Smoking Status: Never smoker Past Alcohol Use History: Abuse, Daily, Heavy Past Drug Use History: None Reported - Past Family History Mother Family Medical History: Fibromyalgia, Rheumatoid Arthritis (RA) Father Family Medical History: Osteoarthritis (OA) Additional Family Medical History / Comment(s): BACK PROBLEMS General Exam Limitations: no limitations Respiratory exam: Present: normal lung sounds bilaterally Cardiovascular Exam: Present: regular rate, normal rhythm, normal heart sounds. Absent: systolic murmur, diastolic murmur, rubs, gallop, clicks Extremities exam: Present: full ROM (Patient has full flexion and extension of the feet bilaterally.), tenderness (Tenderness to the lateral sides of the feet bilaterally.), normal capillary refill (Capillary refill less than 2 seconds in the lower extremity bilaterally). Absent: pedal edema, joint swelling (No swelling noted to the feet bilaterally), calf tenderness (No calf tenderness, swelling, or redness bilaterally. Negative Homans sign bilaterally) Course Vital Signs 09/12/17 12:54 Temperature 98 F Pulse Rate 98 Respiratory 18 Rate Blood Pressure 171/89 O2 Sat by Pulse 98 Oximetry Medical Decision Making - Medical Decision Making 37-year-old male presents to the emergency department for a chief complaint of bilateral foot pain. Patient states he was outside fishing for 2 days about a week ago. Patient didn't notice any pain immediately after this. He started to have pains about 3 days later. Pain has been ongoing for about 5 days now. Patient states he notices the pain is worse in the morning when he wakes up and tries to walk. On exam patient does have some tenderness to bilateral fifth metatarsal. Pedal and posterior tibial pulses 2+ in the lower extremities bilaterally. Capillary refill less than 2 seconds bilaterally in the lower extremities. Patient is able to flex and extend his ankle joint. Bilateral x- rays were obtained due to bony tenderness. X-ray showed no acute fracture or dislocation. Patient has good blood flow to the feet. Feet appear pink and there is no skin breakdown noted on exam. There are no neuro deficits and patient can move feet bilaterally. He has full range of motion. No acute problems noted in the feet at this time. He will follow up with primary care in 1-2 days if pain continues. He will take ibuprofen for pain relief in the meantime. Disposition Clinical Impression: Foot pain, bilateral Disposition: HOME SELF-CARE Condition: Good Instructions: Arthralgia (ED) Additional Instructions: Please use ibuprofen 3 times a day for pain relief. Please follow-up with primary care in 1-2 days. If you notice any discoloration in the feet or worsening of symptoms please return to the emergency department. Referrals: None,Stated [Primary Care Provider] - 1-2 days Time of Disposition: 13:53
--- NOTE | 2017-09-12 13:29 | XR ---
EXAMINATION TYPE: XR foot complete bilateral DATE OF EXAM: 09/12/2017 COMPARISON: NONE HISTORY: Pain TECHNIQUE: Three views are submitted. FINDINGS: The osseous structures are intact and there is hypertrophic change of the first MTP with narrowing of joint space.. There is no acute fracture or dislocation. No destructive changes. IMPRESSION: 1. No acute fracture or dislocation. If symptoms persist, follow-up exam in 7 to 10 days could be ob tained. 2. No destructive changes seen.
== END 2017-09-12 14:03 | disposition home or self-care (01) ==
LOC: EC 12:08
DX: M79.671 Pain in right foot (principal); M79.672 Pain in left foot; Z91.018 Allergy to other foods
CPT/HCPCS: 99283

== ENCOUNTER 2017-12-29 18:16 | Emergency (ER) | payer OTHER ==
[2017-12-29] MEDS ORDERED: SODIUM CHLORIDE 0.9% 1,000 ML IV STA (19:27)
[2017-12-29] MEDS ORDERED: LORazepam 2 MG/ML INJ IV STA ×2 (19:27→22:40)
--- NOTE | 2017-12-29 19:44 | ED ---
Dizziness HPI - General Source: patient, EMS, RN notes reviewed Mode of arrival: EMS Limitations: no limitations <Demi Lanier - Last Filed: 12/29/17 22:17> <Fredrick Kumari - Last Filed: 12/30/17 10:27> - General Chief Complaint: Dizziness Stated Complaint: Heat Exhaustion Time Seen by Provider: 12/29/17 19:20 - History of Present Illness Initial Comments: This is a 37-year-old male who presents to the emergency department with chief complaint heat exhaustion. Patient states that for the past 5 days he has been outside working in the heat. 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 He states that while working he has felt some episodes of dizziness but within the she didn't would go away. Patient states that prior to work this morning he had 2 tall boy a "beverages. He states that he then went to work and at about 2:00 he started to feel dizzy and lightheaded. He states he felt like he was going to pass out and did not have his phone on him to contact EMS. [place] that he if he made it down there he would find someone that new him that could contact EMS for him. Patient states that on his walk to the river he passed out. He states he is unsure if he hit his head. He states that he "somehow made it to the river." He states that he fell into one of his friend's arms within contacted EMS. At this time, patient still complains of dizziness and lightheadedness. He states that he knows he needs IV fluids. Patient denies any recent fevers or chills, chest pain, abdominal pain, nausea or vomiting, diarrhea or constipation, dysuria or hematuria, headache or vision changes. Patient does state that he is an alcoholic and feels as if he may be withdrawing. (Demi Lanier) - Related Data Home Medications Medication Instructions Recorded Confirmed No Known Home Medications 09/12/17 12/29/17 Allergies Allergy/AdvReac Type Severity Reaction Status Date / Time chocolate flavor Allergy Rash/Hives Verified 12/29/17 18:32 coconut oil Allergy Rash/Hives Verified 12/29/17 18:32 pineapple Allergy Rash/Hives Verified 12/29/17 18:32 Review of Systems ROS Other: All systems not noted in ROS Statement are negative. <YolandeDemi Dumas - Last Filed: 12/29/17 22:17> ROS Other: All systems not noted in ROS Statement are negative. <Fredrick Kumari - Last Filed: 12/30/17 10:27> ROS Statement: Those systems with pertinent positive or pertinent negative responses have been documented in the HPI. Past Medical History Past Medical History: Seizure Disorder Additional Past Medical History / Comment(s): VERTIGO IN PAST,ETOH ABUSE, WITHDRAWLS/DT"S. SEIZURE D/T ETOH in 2016 History of Any Multi-Drug Resistant Organisms: None Reported Past Surgical History: No Surgical Hx Reported Additional Past Surgical History / Comment(s): RT WRIST SX Past Anesthesia/Blood Transfusion Reactions: No Reported Reaction Additional Past Anesthesia/Blood Transfusion Reaction / Comment(s): CLAUSTERPHOBIA Past Psychological History: No Psychological Hx Reported Smoking Status: Never smoker Past Alcohol Use History: Abuse, Daily, Heavy Past Drug Use History: None Reported - Past Family History Mother Family Medical History: Fibromyalgia, Rheumatoid Arthritis (RA) Father Family Medical History: Osteoarthritis (OA) Additional Family Medical History / Comment(s): BACK PROBLEMS <YolandeDemi Piter - Last Filed: 12/29/17 22:17> General Exam Limitations: no limitations <YolandeDemi Piter - Last Filed: 12/29/17 22:17> <KumariFredrick - Last Filed: 12/30/17 10:27> - General Exam Comments Initial Comments: General: Awake and alert, well-developed; in no apparent distress. Patient appears disheveled and dirty. Hair is matted. HEENT: Head atraumatic, normocephalic. Pupils are equal, round and reactive to light. Extraocular movements intact. Oropharynx moist without erythema or exudate. Neck: Supple. Normal ROM. Cardiovascular: Regular rate and rhythm. No murmurs, rubs or gallops. Chest symmetrical. Respiratory: Lungs clear to auscultation bilaterally. No wheezes, rales or rhonchi. Normal respiratory effort with no use of accessory muscles. Abdomen: Soft, non-tender, non-distended. No rigidity, rebound or guarding. Normal bowel sounds in all 4 quadrants. Musculoskeletal: Normal ROM, no tenderness bilateral upper and lower extremities. Skin: Skin on face and bilateral forearms is erythematous from sunburn. All other skin is pink, warm, dry and intact. Neurological: Alert and oriented x3. CN II-XII grossly intact. Speech is fluent and answers are appropriate. No focal neuro deficits. Psychiatric: Normal mood and affect. No overt signs of depression or anxiety noted. (Demi Lanier) Vital Signs 12/29/17 12/29/17 12/29/17 18:19 20:18 22:32 Temperature 98.8 F 98.6 F Pulse Rate 110 H 96 90 Respiratory 18 18 16 Rate Blood Pressure 143/80 139/81 132/64 O2 Sat by Pulse 95 96 95 Oximetry 12/30/17 12/30/17 12/30/17 01:00 02:58 04:01 Temperature 98.6 F Pulse Rate 88 102 H 98 Respiratory 16 16 16 Rate Blood Pressure 130/75 130/56 117/57 O2 Sat by Pulse 96 97 96 Oximetry 12/30/17 12/30/17 06:32 08:54 Temperature 98.8 F Pulse Rate 103 H 82 Respiratory 18 20 Rate Blood Pressure 142/64 136/63 O2 Sat by Pulse 98 96 Oximetry EKG Findings - EKG Comments: EKG Findings:: 20:22:19. Normal sinus rhythm. Minimal voltage criteria for LVH , maybe normal variant. Ventricular rate 87 bpm, AK interval 148, QRS duration 90, QT/QTC 356/428. No ST segment elevation or depression. <Demi Lanier - Last Filed: 12/29/17 22:17> Medical Decision Making - Lab Data Result diagrams: 12/29/17 20:32 12/29/17 20:32 - Radiology Data Radiology results: report reviewed <Demi Lanier - Last Filed: 12/29/17 22:17> - Lab Data Result diagrams: 12/29/17 20:32 12/29/17 20:32 <Fredrick Kumari - Last Filed: 12/30/17 10:27> - Medical Decision Making This is a 37-year-old male who presented to the emergency department with chief complaint of heat exhaustion. Patient states that he has a clear and has been working outside for the past 5 days. He also states that he is an alcoholic and has been drinking before going into work. He states that today he was outside working and became dizzy and lightheaded. He states that he felt he was going to pass out. He [place] and that he passed out. He was unsure if he hit his head. A computed tomography scan of the brain was obtained which revealed no acute abnormalities. EKG revealed normal sinus rhythm. Laboratory studies showed a low white blood cell count at 2.3 and elevated liver transaminases. However, on review of past laboratory studies, this is consistent and seems to be baseline for patient. Blood alcohol content was 341. Patient was given fluids in the emergency department. (Demi Lanier) Patient reevaluated by myself, Dr. Kumari. Patient resting comfortably in bed and requesting discharge. Patient updated on results including concern for alcohol problems including laboratory abnormalities. Patient states he is on waiting list for rehab. (Fredrick Kumari) - Lab Data Lab Results 12/29/17 12/29/17 Range/Units 20:32 20:32 WBC 2.3 L (3.8-10.6) k/uL RBC 4.54 (4.30-5.90) m/uL Hgb 14.0 (13.0-17.5) gm/dL Hct 40.6 (39.0-53.0) % MCV 89.4 (80.0-100.0) fL MCH 30.8 (25.0-35.0) pg MCHC 34.5 (31.0-37.0) g/dL RDW 15.3 (11.5-15.5) % Plt Count 64 L (150-450) k/uL Neutrophils % (Manual) 57 % Band Neutrophils % 1 % Lymphocytes % (Manual) 33 % Monocytes % (Manual) 9 % Neutrophils # (Manual) 1.30 (1.3-7.7) k/uL Lymphocytes # (Manual) 0.76 L (1.0-4.8) k/uL Monocytes # (Manual) 0.21 (0-1.0) k/uL Nucleated RBCs 0 (0-0) /100 WBC Manual Slide Review Performed RBC Morphology Normal Sodium 138 (137-145) mmol/L Potassium 4.5 (3.5-5.1) mmol/L Chloride 97 L (98-107) mmol/L Carbon Dioxide 26 (22-30) mmol/L Anion Gap 15 mmol/L BUN 4 L (9-20) mg/dL Creatinine 0.56 L (0.66-1.25) mg/dL Est GFR (CKD-EPI)AfAm >90 (>60 ml/min/1.73 sqM) Est GFR (CKD-EPI)NonAf >90 (>60 ml/min/1.73 sqM) Glucose 83 (74-99) mg/dL Calcium 8.5 (8.4-10.2) mg/dL Total Bilirubin 0.5 (0.2-1.3) mg/dL AST 254 H (17-59) U/L ALT 144 H (21-72) U/L Alkaline Phosphatase 95 (38-126) U/L Total Protein 6.9 (6.3-8.2) g/dL Albumin 4.0 (3.5-5.0) g/dL Serum Alcohol 341 mg/dL - Radiology Data CT brain and C-spine without contrast impression: There is cerebral cortical atrophy for the patient's age. No acute intracranial abnormality. No change. Negative computed tomography scan of the cervical spine. (Demi Lanier) Disposition <Demi Lanier - Last Filed: 12/29/17 22:17> Is patient prescribed a controlled substance at d/c from ED?: No Time of Disposition: 10:27 <Fredrick Kumari - Last Filed: 12/30/17 10:27> Clinical Impression: Alcoholic intoxication, Alcohol abuse Disposition: HOME SELF-CARE Condition: Stable Instructions: Dizziness (ED), Abuse of Alcohol (ED), Alcohol Use Disorder (ED) Additional Instructions: Discontinue alcohol use. Please follow-up with primary care physician in the next couple days for recheck your Primary care physician review results from today. Follow-up information provided for alcohol abuse. Referrals: Laila Whiting MD [STAFF PHYSICIAN] - 1-2 days
[2017-12-29 20:55] LABS: ALT 144 U/L (21-72); AST 254 U/L (17-59); Alkaline Phosphatase 95 U/L (38-126); Anion Gap 15 mmol/L; Blood Urea Nitrogen 4 mg/dL (9-20); Calcium 8.5 mg/dL (8.4-10.2); Carbon Dioxide 26 mmol/L (22-30); Chloride 97 mmol/L (98-107); Glucose 83 mg/dL (74-99); Potassium 4.5 mmol/L (3.5-5.1); Sodium 138 mmol/L (137-145); Total Bilirubin 0.5 mg/dL (0.2-1.3); Total Protein 6.9 g/dL (6.3-8.2)
[2017-12-29 21:00] LABS: HCT 40.6 % (39.0-53.0); MCH 30.8 pg (25.0-35.0); MCHC 34.5 g/dL (31.0-37.0); MCV 89.4 fL (80.0-100.0); Mean Platelet Volume 6.7; RBC 4.54 m/uL (4.30-5.90); RDW 15.3 % (11.5-15.5); WBC 2.3 k/uL (3.8-10.6)
[2017-12-29 21:07] LABS: Alcohol 341 mg/dL
[2017-12-29 21:11] LABS: Band Neutrophils % 1 %; Lymphocytes # (M) 0.76 k/uL (1.0-4.8); Monocytes # (M) 0.21 k/uL (0-1.0); Neutrophils % (M) 57 %; Nucleated Red Blood Cells 0 /100 WBC (0-0); Platelet Count 64 k/uL (150-450); Total Cells Counted 100
--- NOTE | 2017-12-29 21:23 | CT ---
EXAMINATION TYPE: CT brain jose antonio cummins con DATE OF EXAM: 12/29/2017 COMPARISON: CT brain 05/29/2017 HISTORY: Syncope x2 today CT DLP: 1717 mGycm Automated exposure control for dose reduction was used. TECHNIQUE: CT scan of the head and cervical spine are performed without contrast. FINDINGS: There is cerebral mild cortical atrophy. There is no mass effect nor midline shift. There is no sign of intracranial hemorrhage. The calvarium is intact. The cervical vertebra have normal spacing and alignment. Posterior elements are intact. Facet joints appear normal. The skull base is intact. IMPRESSION: There is cerebral cortical atrophy for the patient's age. No acute intracranial abnormality. No reyna e. Negative CT scan of the cervical spine.
[2017-12-29] MEDS ORDERED: SODIUM CHLORIDE 0.9% 1,000 ML IV ONE (22:38)
[2017-12-30 10:33] VITALS: BP 141/64; PULSE 81; RESP 18; TEMP 100.2
== END 2017-12-30 10:32 | disposition home or self-care (01) ==
LOC: EC 18:16
DX: F10.129 Alcohol abuse with intoxication, unspecified (principal); Y90.8 Blood alcohol level of 240 mg/100 ml or more; Z91.018 Allergy to other foods
CPT/HCPCS: 99285; 96374; 96376; 96361; 36415; 93005; 80053; 85025; 80320; 72125; 70450; J2060

== ENCOUNTER 2017-12-31 09:45 | Inpatient (IN) | payer OTHER ==
--- NOTE | 2017-12-31 10:26 | ED ---
Alcohol HPI - General Source: patient, RN notes reviewed Mode of arrival: wheelchair Limitations: no limitations <Napoleon Villela - Last Filed: 12/31/17 13:12> <Fredrick Kumari - Last Filed: 12/31/17 13:14> - General Chief Complaint: Alcohol Stated Complaint: etoh Time Seen by Provider: 12/31/17 10:05 - History of Present Illness Initial Comments: This is a 37-year-old male presents emergency Department chief complaint alcohol intoxication. Patient states that he is drunk states that he was discharged yesterday from the hospital states he went out and continue to drink all day and all night. Patient states that he is currently on a waiting list for rehab. Patient states that is not suicidal or homicidal. Patient initially told triage that he was hallucinating though he states this is not true. Patient has no physical complaints denies any abdominal pain, nausea, vomiting, diarrhea constipation, chest pain or shortness breath. (Napoleon Villela) - Related Data Home Medications Medication Instructions Recorded Confirmed No Known Home Medications 12/31/17 12/31/17 Allergies Allergy/AdvReac Type Severity Reaction Status Date / Time chocolate flavor Allergy Rash/Hives Verified 12/31/17 10:44 coconut oil Allergy Rash/Hives Verified 12/31/17 10:44 pineapple Allergy Rash/Hives Verified 12/31/17 10:44 Review of Systems ROS Other: All systems not noted in ROS Statement are negative. <Napoleon Villela - Last Filed: 12/31/17 13:12> ROS Other: All systems not noted in ROS Statement are negative. <Fredrick Kumari - Last Filed: 12/31/17 13:14> ROS Statement: Those systems with pertinent positive or pertinent negative responses have been documented in the HPI. Past Medical History Past Medical History: Seizure Disorder Additional Past Medical History / Comment(s): VERTIGO IN PAST,ETOH ABUSE, WITHDRAWLS/DT"S. SEIZURE D/T ETOH in 2016 History of Any Multi-Drug Resistant Organisms: None Reported Past Surgical History: No Surgical Hx Reported Additional Past Surgical History / Comment(s): RT WRIST SX Past Anesthesia/Blood Transfusion Reactions: No Reported Reaction Additional Past Anesthesia/Blood Transfusion Reaction / Comment(s): CLAUSTERPHOBIA Past Psychological History: No Psychological Hx Reported Smoking Status: Never smoker Past Alcohol Use History: Abuse, Daily, Heavy Past Drug Use History: None Reported - Past Family History Mother Family Medical History: Fibromyalgia, Rheumatoid Arthritis (RA) Father Family Medical History: Osteoarthritis (OA) Additional Family Medical History / Comment(s): BACK PROBLEMS <Napoleon Villela - Last Filed: 12/31/17 13:12> General Exam Limitations: no limitations General appearance: alert, in no apparent distress Head exam: Present: atraumatic, normocephalic, normal inspection Eye exam: Present: normal appearance, PERRL, EOMI. Absent: scleral icterus, conjunctival injection, periorbital swelling ENT exam: Present: normal exam, normal oropharynx, mucous membranes moist Neck exam: Present: normal inspection, full ROM. Absent: tenderness, meningismus, lymphadenopathy Respiratory exam: Present: normal lung sounds bilaterally. Absent: respiratory distress, wheezes, rales, rhonchi, stridor Cardiovascular Exam: Present: regular rate, normal rhythm, normal heart sounds. Absent: systolic murmur, diastolic murmur, rubs, gallop, clicks GI/Abdominal exam: Present: soft, normal bowel sounds. Absent: distended, tenderness, guarding, rebound, rigid Neurological exam: Present: alert, oriented X3, CN II-XII intact Skin exam: Present: warm, dry, intact, normal color. Absent: rash <Napoleon Villela - Last Filed: 12/31/17 13:12> Vital Signs 12/31/17 09:57 Temperature 97.7 F Pulse Rate 76 Respiratory 18 Rate Blood Pressure 116/80 O2 Sat by Pulse 100 Oximetry Medical Decision Making - Lab Data Result diagrams: 12/31/17 11:32 12/31/17 11:32 <Napoleon Villela - Last Filed: 12/31/17 13:12> - Lab Data Result diagrams: 12/31/17 11:32 12/31/17 11:32 <Fredrick Kumari - Last Filed: 12/31/17 13:14> - Medical Decision Making Patient reevaluated by myself, Dr. Kumari. Patient is arousable without any complaints. Secondary to she may high alcohol level patient will be Tried observation. Case discussed with Dr. Caceres, who will admit for hospital call. ( Fredrick Kumari) - Lab Data Lab Results 12/31/17 12/31/17 Range/Units 11:32 11:32 WBC 4.4 (3.8-10.6) k/uL RBC 4.31 (4.30-5.90) m/uL Hgb 13.0 (13.0-17.5) gm/dL Hct 39.3 (39.0-53.0) % MCV 91.1 (80.0-100.0) fL MCH 30.1 (25.0-35.0) pg MCHC 33.0 (31.0-37.0) g/dL RDW 15.1 (11.5-15.5) % Plt Count 68 L (150-450) k/uL Neutrophils % 70 % Lymphocytes % 15 % Monocytes % 10 % Eosinophils % 1 % Basophils % 0 % Neutrophils # 3.0 (1.3-7.7) k/uL Lymphocytes # 0.7 L (1.0-4.8) k/uL Monocytes # 0.5 (0-1.0) k/uL Eosinophils # 0.1 (0-0.7) k/uL Basophils # 0.0 (0-0.2) k/uL Sodium 145 (137-145) mmol/L Potassium 4.0 (3.5-5.1) mmol/L Chloride 104 (98-107) mmol/L Carbon Dioxide 26 (22-30) mmol/L Anion Gap 15 mmol/L BUN 2 L (9-20) mg/dL Creatinine 0.52 L (0.66-1.25) mg/dL Est GFR (CKD-EPI)AfAm >90 (>60 ml/min/1.73 sqM) Est GFR (CKD-EPI)NonAf >90 (>60 ml/min/1.73 sqM) Glucose 95 (74-99) mg/dL Calcium 8.5 (8.4-10.2) mg/dL Magnesium 1.8 (1.6-2.3) mg/dL Total Bilirubin 0.2 (0.2-1.3) mg/dL AST 200 H (17-59) U/L ALT 128 H (21-72) U/L Alkaline Phosphatase 77 (38-126) U/L Total Protein 6.3 (6.3-8.2) g/dL Albumin 3.7 (3.5-5.0) g/dL Lipase 195 (23-300) U/L Serum Alcohol 453 mg/dL Disposition <Napoleon Villela - Last Filed: 12/31/17 13:12> <Fredrick Kumari - Last Filed: 12/31/17 13:14> Clinical Impression: Alcohol intoxication, Thrombocytopenia Disposition: ADMITTED IP TO THIS HOSP Condition: Stable Referrals: None,Stated [Primary Care Provider] - 1-2 days
[2017-12-31] MEDS ORDERED: SODIUM CHLORIDE 0.9% 1,000 ML with MVI, ADULT NO.4 WITH VIT K 10 ML, THIAMINE 100 MG, F... IV ONE ×4 (11:17)
[2017-12-31 11:58] LABS: Basophils % (A) 0 %; Eosinophils # (A) 0.1 k/uL (0-0.7); Eosinophils % (A) 1 %; HCT 39.3 % (39.0-53.0); Lymphocytes # (A) 0.7 k/uL (1.0-4.8); Lymphocytes % (A) 15 %; MCH 30.1 pg (25.0-35.0); MCV 91.1 fL (80.0-100.0); Mean Platelet Volume 7.1; Monocytes # (A) 0.5 k/uL (0-1.0); Monocytes % (A) 10 %; Neutrophils % (A) 70 %; RBC 4.31 m/uL (4.30-5.90); RDW 15.1 % (11.5-15.5); WBC 4.4 k/uL (3.8-10.6)
[2017-12-31 11:59] LABS: Platelet Count 68 k/uL (150-450)
[2017-12-31 12:27] LABS: ALT 128 U/L (21-72); AST 200 U/L (17-59); Albumin 3.7 g/dL (3.5-5.0); Alkaline Phosphatase 77 U/L (38-126); Anion Gap 15 mmol/L; Blood Urea Nitrogen 2 mg/dL (9-20); Calcium 8.5 mg/dL (8.4-10.2); Carbon Dioxide 26 mmol/L (22-30); Chloride 104 mmol/L (98-107); Glucose 95 mg/dL (74-99); Lipase 195 U/L (23-300); Magnesium 1.8 mg/dL (1.6-2.3); Sodium 145 mmol/L (137-145); Total Bilirubin 0.2 mg/dL (0.2-1.3); Total Protein 6.3 g/dL (6.3-8.2)
[2017-12-31 12:53] LABS: Alcohol 453 mg/dL
[2017-12-31] MEDS ORDERED: LORazepam 2 MG/ML INJ IV PRN ×2 (13:12)
[2017-12-31] MEDS ORDERED: ONDANSETRON 4 MG/2 ML VIAL IVP PRN (13:13)
[2017-12-31] MEDS ORDERED: NALOXONE 0.4 MG/ML 1 ML VIAL IV PRN (15:09)
--- NOTE | 2017-12-31 15:19 | P.HPIM ---
History of Present Illness H&P Date: 12/31/17 Chief Complaint: Drinking alcohol 37-year-old male presented to the emergency Department with chief complaint alcohol intoxication and ''malnutrition''. Patient came to the hospital yesterday for the same reason and was discharged. After discharge he went out and continued to drink all day and all night. Patient states that he is currently on a waiting list for rehab. Patient denied suicidal or homicidal ideations. Otherwise no physical complaints denied any fevers, chills, abdominal pain, nausea, vomiting, diarrhea constipation, chest pain or shortness breath. Patient is known to me from last admission, he was here for hypothermia last May related to alcohol use. In the emergency department and his alcohol level was around 450 and it was decided to admit him to the hospital for further observation. Review of Systems Negative, 12 point review of system performed Past Medical History Past Medical History: Pneumonia, Seizure Disorder Additional Past Medical History / Comment(s): VERTIGO IN PAST,ETOH ABUSE, WITHDRAWLS/DT"S. SEIZURE x2 D/T ETOH in 2015, chronic alcoholic thrombocytopenia History of Any Multi-Drug Resistant Organisms: None Reported Past Surgical History: No Surgical Hx Reported Additional Past Surgical History / Comment(s): RT WRIST SX Past Anesthesia/Blood Transfusion Reactions: No Reported Reaction Additional Past Anesthesia/Blood Transfusion Reaction / Comment(s): CLAUSTERPHOBIA Smoking Status: Never smoker Past Alcohol Use History: Daily (Drinks on average 5 tall beers daily) - Past Family History Mother Family Medical History: Fibromyalgia, Rheumatoid Arthritis (RA) Father Family Medical History: Osteoarthritis (OA) Additional Family Medical History / Comment(s): BACK PROBLEMS Medications and Allergies Home Medications Medication Instructions Recorded Confirmed Type No Known Home Medications 12/31/17 12/31/17 History Allergies Allergy/AdvReac Type Severity Reaction Status Date / Time chocolate flavor Allergy Rash/Hives Verified 12/31/17 10:44 coconut oil Allergy Rash/Hives Verified 12/31/17 10:44 pineapple Allergy Rash/Hives Verified 12/31/17 10:44 Physical Exam Vitals: Vital Signs Temp Pulse Resp BP Pulse Ox 12/31/17 14:01 97.0 F L 68 18 116/58 99 12/31/17 09:57 97.7 F 76 18 116/80 100 Intake and Output 12/31/17 12/31/17 12/31/17 06:59 14:59 22:59 Other: Weight 33.475 kg Constitutional: No acute distress, conversant, disheveled Eyes:Anicteric sclerae, moist conjunctiva, no lid-lag, PERRLA, ENMT: Poor dentition, Oropharynx clear, no erythema, exudates Neck: Supple, FROM, no masses, or JVD, No carotid bruits, No thyromegaly Lungs: Clear to auscultation, Clear to percussion, Normal respiratory effort, no accessory muscle use Cardiovascular: Heart regular in rate and rhythm, No murmurs, gallops, or rubs, No peripheral edema Abdominal: Soft, Nontender, no guarding, rebound or rigidity, Normoactive bowel sounds, No hepatomegaly, No splenomegaly, No palpable mass Skin: Normal temperature, tone, texture, turgor, no induration, No subcutaneous nodules, No rash, lesions, No ulcers Extremities: No digital cyanosis, No clubbing, Pedal pulses intact and symmetrical, Radial pulses intact and symmetrical, No calf tenderness Psychiatric: Alert and oriented to person, place and time, appropriate affect, intact judgement Neuro: Muscles Strength 5/5 in all 4 extremities, Sensation to light touch grossly present throughout, Cranial nerves II-XII grossly intact, no focal sensory deficits Results CBC & Chem 7: 12/31/17 11:32 12/31/17 11:32 Labs: Abnormal Lab Results - Last 24 Hours (Table) 12/31/17 12/31/17 Range/Units 11:32 11:32 Plt Count 68 L (150-450) k/uL Lymphocytes # 0.7 L (1.0-4.8) k/uL BUN 2 L (9-20) mg/dL Creatinine 0.52 L (0.66-1.25) mg/dL AST 200 H (17-59) U/L ALT 128 H (21-72) U/L Assessment and Plan Plan: Alcohol intoxication IV fluids [facility]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 Chronic thrombocytopenia/chronic transaminitis Secondary to alcohol abuse
[2017-12-31] MEDS: SODIUM CHLORIDE 0.9% 1,000 ML IV SCH (15:49)
[2017-12-31] MEDS: ACETAMINOPHEN TAB 325 MG TAB PO PRN (16:27)
[2017-12-31] MEDS: THIAMINE 100 MG TAB PO SCH (16:27)
[2018-01-01] MEDS: SODIUM CHLORIDE 0.9% 1,000 ML IV SCH ×2 (01:40→08:37)
[2018-01-01 07:03] LABS: Basophils % (A) 0 %; Eosinophils % (A) 1 %; HCT 37.9 % (39.0-53.0); HGB 12.4 gm/dL (13.0-17.5); Lymphocytes # (A) 0.5 k/uL (1.0-4.8); Lymphocytes % (A) 14 %; MCH 30.5 pg (25.0-35.0); MCHC 32.8 g/dL (31.0-37.0); MCV 92.9 fL (80.0-100.0); Mean Platelet Volume 7.1; Monocytes # (A) 0.3 k/uL (0-1.0); Monocytes % (A) 8 %; Neutrophils # (A) 2.3 k/uL (1.3-7.7); Neutrophils % (A) 73 %; RBC 4.08 m/uL (4.30-5.90); RDW 15.3 % (11.5-15.5); WBC 3.2 k/uL (3.8-10.6)
[2018-01-01 07:14] LABS: Platelet Count 67 k/uL (150-450)
[2018-01-01 07:16] LABS: ALT 117 U/L (21-72); AST 165 U/L (17-59); Albumin 3.4 g/dL (3.5-5.0); Alkaline Phosphatase 74 U/L (38-126); Anion Gap 8 mmol/L; Blood Urea Nitrogen 3 mg/dL (9-20); Calcium 8.5 mg/dL (8.4-10.2); Carbon Dioxide 32 mmol/L (22-30); Chloride 97 mmol/L (98-107); Glucose 89 mg/dL (74-99); Magnesium 1.2 mg/dL (1.6-2.3); Phosphorus 3.9 mg/dL (2.5-4.5); Potassium 3.5 mmol/L (3.5-5.1); Sodium 137 mmol/L (137-145); Total Bilirubin 0.5 mg/dL (0.2-1.3)
[2018-01-01] MEDS: LORazepam 2 MG/ML INJ IV PRN ×2 (07:31→08:44)
[2018-01-01] MEDS ORDERED: MAGNESIUM SULFATE-D5W PMX 1 GM in DEXTROSE/WATER 1 100ML.BAG IVPB SCH (10:17)
[2018-01-01] MEDS: MAGNESIUM SULFATE-D5W PMX 1 GM in DEXTROSE/WATER 1 100ML.BAG IVPB SCH ×4 (10:25→16:07)
[2018-01-01] MEDS: THIAMINE 100 MG TAB PO SCH ×2 (11:22→17:41)
--- NOTE | 2018-01-01 13:14 | P.PN ---
Subjective Progress Note Date: 01/01/18 Principal diagnosis: ETOH abuse Feeling better today. Objective - Vital Signs Vital signs: Vital Signs Temp 99.2 F 01/01/18 08:54 Pulse 78 01/01/18 08:54 Resp 12 01/01/18 08:54 BP 167/77 01/01/18 08:54 Pulse Ox 96 01/01/18 08:54 Intake & Output 12/31/17 01/01/18 01/01/18 18:59 06:59 18:59 Intake Total 3465 236 Output Total 400 2080 Balance -400 1385 236 Weight 33.475 kg 70.307 kg Intake: Intake, IV Titration 1365 Amount Sodium Chloride 0.9% 1, 500 000 ml @ 100 mls/hr IV . Q10H JAKY Rx#:[id number] Sodium Chloride 0.9% 1, 865 000 ml @ 100 mls/hr IV . Q10H7M ONE with Mvi, Adult No.4 with Vit K 10 ml with Thiamine 100 mg with Folic Acid 1 mg Rx#: [id number] Oral 2100 236 Output: Urine 400 2080 Other: Voiding Method Toilet Urinal Urinal # Voids 2 # Bowel Movements 1 - Exam Constitutional: No acute distress, conversant, pleasant Eyes:Anicteric sclerae, moist conjunctiva, no lid-lag, PERRLA, ENMT: Oropharynx clear, no erythema, exudates Neck: Supple, FROM, no masses, or JVD, No carotid bruits, No thyromegaly Lungs: Clear to auscultation, Clear to percussion, Normal respiratory effort, no accessory muscle use Cardiovascular: Heart regular in rate and rhythm, No murmurs, gallops, or rubs, No peripheral edema Abdominal: Soft, Nontender, no guarding, rebound or rigidity, Normoactive bowel sounds, No hepatomegaly, No splenomegaly, No palpable mass Skin: Normal temperature, tone, texture, turgor, no induration, No subcutaneous nodules, No rash, lesions, No ulcers Extremities: No digital cyanosis, No clubbing, Pedal pulses intact and symmetrical, Radial pulses intact and symmetrical, No calf tenderness Psychiatric: Alert and oriented to person, place and time, appropriate affect, intact judgement Neuro: Muscles Strength 5/5 in all 4 extremities, Sensation to light touch grossly present throughout, Cranial nerves II-XII grossly intact, no focal sensory deficits - Labs CBC & Chem 7: 01/01/18 06:45 01/01/18 06:45 Labs: Abnormal Lab Results - Last 24 Hours (Table) 01/01/18 01/01/18 Range/Units 06:45 06:45 WBC 3.2 L (3.8-10.6) k/uL RBC 4.08 L (4.30-5.90) m/uL Hgb 12.4 L (13.0-17.5) gm/dL Hct 37.9 L (39.0-53.0) % Plt Count 67 L (150-450) k/uL Lymphocytes # 0.5 L (1.0-4.8) k/uL Chloride 97 L (98-107) mmol/L Carbon Dioxide 32 H (22-30) mmol/L BUN 3 L (9-20) mg/dL Creatinine 0.52 L (0.66-1.25) mg/dL Magnesium 1.2 L (1.6-2.3) mg/dL AST 165 H (17-59) U/L ALT 117 H (21-72) U/L Total Protein 6.0 L (6.3-8.2) g/dL Albumin 3.4 L (3.5-5.0) g/dL Assessment and Plan Plan: Alcohol abuse/withdrawal: Continue IV fluids [facility] protocol Counseled to quit D/W SW Chronic thrombocytopenia/chronic transaminitis Secondary to alcohol abuse
[2018-01-02] MEDS: SODIUM CHLORIDE 0.9% 1,000 ML IV SCH ×2 (00:03→07:06)
[2018-01-02] MEDS: ACETAMINOPHEN TAB 325 MG TAB PO PRN ×2 (07:04→15:47)
[2018-01-02 07:08] VITALS: BP 129/84; PULSE 62; RESP 16; TEMP 98.8
[2018-01-02 09:40] LABS: Basophils % (A) 1 %; Eosinophils # (A) 0.1 k/uL (0-0.7); Eosinophils % (A) 2 %; HCT 39.5 % (39.0-53.0); HGB 12.8 gm/dL (13.0-17.5); Lymphocytes # (A) 0.5 k/uL (1.0-4.8); Lymphocytes % (A) 18 %; MCH 29.9 pg (25.0-35.0); MCHC 32.5 g/dL (31.0-37.0); MCV 91.9 fL (80.0-100.0); Mean Platelet Volume 7.4; Monocytes # (A) 0.4 k/uL (0-1.0); Monocytes % (A) 14 %; Neutrophils # (A) 1.6 k/uL (1.3-7.7); Neutrophils % (A) 62 %; RBC 4.29 m/uL (4.30-5.90); WBC 2.6 k/uL (3.8-10.6)
[2018-01-02 09:51] LABS: Anion Gap 7 mmol/L; Blood Urea Nitrogen 5 mg/dL (9-20); Carbon Dioxide 28 mmol/L (22-30); Chloride 104 mmol/L (98-107); Glucose 110 mg/dL (74-99); Magnesium 1.8 mg/dL (1.6-2.3); Phosphorus 3.7 mg/dL (2.5-4.5); Sodium 139 mmol/L (137-145)
[2018-01-02 09:57] LABS: Platelet Count 64 k/uL (150-450)
[2018-01-02] MEDS ORDERED: NEOMYCIN-BACITRACIN-POLY OINT 14 GM TUBE TOPICAL SCH (11:45)
[2018-01-02] MEDS: THIAMINE 100 MG TAB PO SCH ×2 (12:26→15:47)
--- NOTE | 2018-01-02 13:50 | P.DS ---
Providers Date of admission: 01/01/18 08:11 Expected date of discharge: 01/02/18 Attending physician: Fidelina Sol MD Primary care physician: Stated None Hospital Course: 37-year-old male presented to the emergency Department with chief complaint alcohol intoxication and ''malnutrition''. Patient came to the hospital the day before the day of presentation for the same reason and was discharged. After discharge he went out and continued to drink all day and all night. Patient stated that he was on a waiting list for rehab. Patient denied suicidal or homicidal ideations. Otherwise no physical complaints denied any fevers, chills , abdominal pain, nausea, vomiting, diarrhea constipation, chest pain or shortness breath. Patient is known to me from last admission, he was here for hypothermia last May related to alcohol use. In the emergency department and his alcohol level was around 450 and it was decided to admit him to the hospital for further observation. He was started on IV fluids. Laboratory testing revealed hypokalemia and hypomagnesemia, he was given multiple doses of IV potassium and magnesium. Levels normalized on the day of discharge. Today patient is feeling better. He was seen by social work and was given information on [facility] for his alcoholism rehab. Patient will be discharged home in a stable condition. I'm going to start him on naltrexone for his alcohol abuse. Follow-up with primary care physician as soon as possible after discharge. Patient Condition at Discharge: Stable Plan - Discharge Summary Discharge Rx Participant: No New Discharge Prescriptions: New Acetaminophen Tab [Tylenol] 650 mg PO Q6HR PRN tab PRN Reason: Mild Pain Or Fever > 100.5 Ffewtupe-Qffsiqtoaz-Jflx Oint [Triple Antibiotic Ointment] 1 applic TOPICAL TID #1 tube Thiamine [Vitamin B-1] 100 mg PO BID@1200,1700 tab Naltrexone HCl [Revia] 50 mg PO DAILY #30 tablet Folic Acid 1 mg PO DAILY #30 tablet Multivitamin [Men's Multi-Vitamin] 1 each PO DAILY #30 tablet Discharge Medication List Acetaminophen Tab [Tylenol] 650 mg PO Q6HR PRN tab 01/02/18 [Rx] Folic Acid 1 mg PO DAILY #30 tablet 01/02/18 [Rx] Multivitamin [Men's Multi-Vitamin] 1 each PO DAILY #30 tablet 01/02/18 [Rx] Naltrexone HCl [Revia] 50 mg PO DAILY #30 tablet 01/02/18 [Rx] Jqekgbek-Ouqbobonqr-Hanw Oint [Triple Antibiotic Ointment] 1 applic TOPICAL TID #1 tube 01/02/18 [Rx] Thiamine [Vitamin B-1] 100 mg PO BID@1200,1700 tab 01/02/18 [Rx] Follow up Appointment(s)/Referral(s): [facility] [Outside] - 01/08/18 3:00 pm (Bring all discharge paperwork to [facility] for admission. Bring all prescribed medications in original bottles with refills. ) None,Stated [Primary Care Provider] - 1-2 days
--- NOTE | 2018-01-07 09:29 | CDI ---
Last Revision, May 2017 Documentation Clarification Form Date: 01/07/18 From: Laila Franco Phone: If you have a question regarding this query, please contact Linda Villa at [phone] between 8am and 5pm. Admit Date: 01/01/2018 8:11:00 AM Patient Name: Prashanth Lee Visit Number: [id number] Discharge Date: 01/02/18 ATTENTION: The Clinical Documentation Specialists (CDI) and [facility] Coding Staff appreciate your assistance in clarifying documentation. Please respond to the clarification below the line at the bottom and electronically sign. The CDI & [facility] Coding staff will review the response and follow-up if needed. Please note: Queries are made part of the Legal Health Record. If you have any questions, please contact the author of this message via ITS. Dr. Fidelina Sol Malnutrition has been documented in the discharge diagnosis. History/Risk Factors: Patient has a history of alcohol abuse and was admitted for alcohol intoxication. Labs: Albumin/Total Protein: 3.7/6.3 on admission, 3.4/6.0 on 01/01 Current BMI: 21.0 Weight Loss: None documented Loss of subcutaneous fat: None documented Loss of muscle mass: None documented Fluid accumulation: No peripheral edema is documented in the H&P and progress note. 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 Treatment: None Dietary Consult: None Supplements/TPN: None Lab monitoring: Repeated albumin and total protein. In your professional opinion, can you please clarify if these findings signify one of the following conditions? Mild Protein-Calorie Malnutrition Moderate Protein-Calorie Malnutrition Severe Protein-Calorie Malnutrition Malnutrition following GI surgery Malnutrition, Unspecified Other condition, please specify Unable to determine Mild protein calorie malnutrition MTDD
== END 2018-01-02 16:17 | disposition home or self-care (01) | DRG 92 ==
LOC: EC 09:45 → 3SUR 13:12 → OBSVTOIN 01-01 08:11
PROVIDERS: ADMIT Internal Medicine; ATTEND Internal Medicine
DX: G92 Toxic encephalopathy (principal); E44.1 Mild protein-calorie malnutrition; F10.129 Alcohol abuse with intoxication, unspecified; D69.6 Thrombocytopenia, unspecified; E83.42 Hypomagnesemia; E87.6 Hypokalemia; G40.909 Epilepsy, unspecified, not intractable, without status epilepticus; F40.240 Claustrophobia; R79.89 Other specified abnormal findings of blood chemistry; Z91.018 Allergy to other foods; Z82.61 Family history of arthritis; Z82.69 Family history of other diseases of the musculoskeletal system and connective tissue; Z68.21 Body mass index [BMI] 21.0-21.9, adult
CPT/HCPCS: 36415; 80048; 80053; 80320; 83690; 83735; 84100; 85025; 87070; 87075; 87205; 96365; 96366; 99284

== ENCOUNTER 2018-11-19 18:06 | Inpatient (IN) | payer OTHER ==
[2018-11-19] MEDS ORDERED: THIAMINE 100 MG/ML 2 ML VIAL IM STA (19:56)
[2018-11-19] MEDS ORDERED: SODIUM CHLORIDE 0.9% 1,000 ML IV STA (19:56)
--- NOTE | 2018-11-19 19:56 | ED ---
General Adult HPI - General Chief complaint: Alcohol Stated complaint: Fell/Detoxing Time Seen by Provider: 11/19/18 19:37 Source: patient, RN notes reviewed Mode of arrival: ambulatory Limitations: no limitations - History of Present Illness Initial comments: Patient is a pleasant 38-year-old male presenting to the emergency department for alcohol problems. Patient states he "fell off the wagon" 2 weeks ago. Patient states he has been drinking around 1 case of beer daily. Patient states he has drank approximately 4 "tall boys" today. Patient states he did have a fall today and injured his right eyebrow. Patient states he did not injure his eye and is able to see okay. Patient does not recall much details about the fall. Patient denies any other area of injury. Patient is unclear if he could've had a seizure or just fell. Patient requests Ativan. Patient states his alcohol is not high enough and he does not feel very well. Patient states he does have a history of previous seizures with alcohol withdrawal. - Related Data Previous Rx's Medication Instructions Recorded Acetaminophen Tab [Tylenol] 650 mg PO Q6HR PRN tab 01/02/18 Folic Acid 1 mg PO DAILY #30 tablet 01/02/18 Multivitamin [Men's Multi-Vitamin] 1 each PO DAILY #30 tablet 01/02/18 Naltrexone HCl [Revia] 50 mg PO DAILY #30 tablet 01/02/18 Jjtfqhth-Qhszfjxnpi-Dggv Oint 1 applic TOPICAL TID 10 Days #1 01/02/18 [Triple Antibiotic Ointment] tube Thiamine [Vitamin B-1] 100 mg PO BID@1200,1700 #30 tab 01/02/18 Allergies Allergy/AdvReac Type Severity Reaction Status Date / Time chocolate flavor Allergy Rash/Hives Verified 11/19/18 20:45 coconut oil Allergy Rash/Hives Verified 11/19/18 20:45 pineapple Allergy Rash/Hives Verified 11/19/18 20:45 Review of Systems ROS Statement: Those systems with pertinent positive or pertinent negative responses have been documented in the HPI. ROS Other: All systems not noted in ROS Statement are negative. Constitutional: Denies: fever Eyes: Denies: eye pain ENT: Denies: ear pain Respiratory: Denies: cough Cardiovascular: Denies: chest pain Endocrine: Reports: fatigue Gastrointestinal: Reports: nausea. Denies: abdominal pain Genitourinary: Denies: dysuria Musculoskeletal: Denies: back pain Skin: Denies: rash Neurological: Reports: headache (Patient does have mild headache) Past Medical History Past Medical History: Pneumonia, Seizure Disorder Additional Past Medical History / Comment(s): VERTIGO IN PAST,ETOH ABUSE, WITHDRAWLS/DT"S. SEIZURE x2 D/T ETOH in 2016, chronic alcoholic thrombocytopenia History of Any Multi-Drug Resistant Organisms: None Reported Past Surgical History: No Surgical Hx Reported Additional Past Surgical History / Comment(s): RT WRIST SX Past Anesthesia/Blood Transfusion Reactions: No Reported Reaction Additional Past Anesthesia/Blood Transfusion Reaction / Comment(s): CLAUSTERPHOBIA Past Psychological History: No Psychological Hx Reported Smoking Status: Never smoker Past Alcohol Use History: Daily - Past Family History Mother Family Medical History: Fibromyalgia, Rheumatoid Arthritis (RA) Father Family Medical History: Osteoarthritis (OA) Additional Family Medical History / Comment(s): BACK PROBLEMS General Exam Limitations: no limitations General appearance: alert, in no apparent distress Head exam: Present: other (Soft tissue swelling right eyebrow) Eye exam: Present: PERRL, EOMI ENT exam: Present: normal oropharynx Neck exam: Present: normal inspection. Absent: tenderness Respiratory exam: Present: normal lung sounds bilaterally Cardiovascular Exam: Present: regular rate, normal rhythm GI/Abdominal exam: Present: soft. Absent: tenderness Extremities exam: Present: normal inspection Neurological exam: Present: alert, oriented X3, CN II-XII intact. Absent: motor sensory deficit Expanded Neurological exam: Present: protecting the airway Speech: Present: fluid speech Sensory exam: Upper Extremity Light Touch: Normal, Lower Extremity Light Touch: Normal Motor strength exam: RUE: 5, LUE: 5, RLE: 5, LLE: 5 Eye Response: (4) open spontaneously Motor Response: (6) obeys commands Verbal Response: (5) oriented Psychiatric exam: Present: normal affect, normal mood Skin exam: Present: normal color Course Vital Signs 11/19/18 18:44 Temperature 98.7 F Pulse Rate 81 Respiratory 18 Rate Blood Pressure 127/72 O2 Sat by Pulse 99 Oximetry Medical Decision Making - Medical Decision Making Patient reevaluated. Case discussed with Dr. Crockett, who will admit covering for hospital call. - Radiology Data Radiology results: image reviewed (Computed tomography scan of the brain and cervical spine reveal no acute abnormality. Soft tissue swelling) Disposition Clinical Impression: Alcoholic intoxication Disposition: ADMITTED IP TO THIS HOSP Is patient prescribed a controlled substance at d/c from ED?: No Referrals: None,Stated [Primary Care Provider] - 1-2 days Decision Time: 20:45
--- NOTE | 2018-11-19 20:30 | CT ---
EXAMINATION TYPE: CT brain jose antonio wo con DATE OF EXAM: 11/19/2018 COMPARISON: 12/29/2017 HISTORY: Fall. Right orbital swelling and bruising. CT DLP: 1240.9 mGycm Automated exposure control for dose reduction was used. TECHNIQUE: CT scan of the head and cervical spine are performed without contrast. FINDINGS: Ventricles have normal size. There is no mass effect nor midline shift. There is no sign of intracranial hemorrhage. The calvarium is intact. There is right-sided periorbital soft tissue swe lling. Cervical vertebra have normal spacing and alignment. Posterior elements are intact. Facet joints are intact. The skull base is intact. IMPRESSION: Negative CT scan of the brain. No change. Negative CT scan cervical spine. No change. Right-sided periorbital soft tissue swelling.
[2018-11-19] MEDS ORDERED: NALOXONE 0.4 MG/ML 1 ML VIAL IV PRN (20:46)
[2018-11-19] MEDS ORDERED: ONDANSETRON 4 MG/2 ML VIAL IVP PRN (20:46)
[2018-11-19] MEDS ORDERED: LORazepam 2 MG/ML INJ IV PRN ×3 (20:48)
[2018-11-19 20:53] LABS: Basophils % (A) 0 %; Eosinophils # (A) 0.1 k/uL (0-0.7); Eosinophils % (A) 3 %; HCT 45.7 % (39.0-53.0); HGB 14.9 gm/dL (13.0-17.5); Lymphocytes % (A) 32 %; MCH 27.5 pg (25.0-35.0); MCHC 32.7 g/dL (31.0-37.0); MCV 84.1 fL (80.0-100.0); Mean Platelet Volume 6.3; Monocytes # (A) 0.3 k/uL (0-1.0); Monocytes % (A) 10 %; Neutrophils # (A) 1.6 k/uL (1.3-7.7); Neutrophils % (A) 51 %; Platelet Count 178 k/uL (150-450); RBC 5.43 m/uL (4.30-5.90); RDW 15.1 % (11.5-15.5); WBC 3.2 k/uL (3.8-10.6)
[2018-11-19 20:55] LABS: Prothrombin Time 10.5 sec (9.0-12.0)
[2018-11-19 21:03] LABS: ALT 162 U/L (21-72); AST 133 U/L (17-59); African American GFR (CKD) >90 (>60 ml/min/1.73 sqM); Albumin 4.7 g/dL (3.5-5.0); Alkaline Phosphatase 113 U/L (38-126); Anion Gap 15 mmol/L; Blood Urea Nitrogen 5 mg/dL (9-20); Calcium 8.7 mg/dL (8.4-10.2); Carbon Dioxide 26 mmol/L (22-30); Chloride 101 mmol/L (98-107); Glucose 102 mg/dL (74-99); Magnesium 2.1 mg/dL (1.6-2.3); Potassium 4.2 mmol/L (3.5-5.1); Sodium 142 mmol/L (137-145); Total Bilirubin 0.5 mg/dL (0.2-1.3); Total Protein 7.6 g/dL (6.3-8.2)
[2018-11-19 21:16] LABS: Alcohol 417 mg/dL
[2018-11-19] MEDS: SODIUM CHLORIDE 0.9% 1,000 ML IV SCH (23:08)
[2018-11-19] MEDS: FAMOTIDINE 20 MG TAB PO SCH (23:46)
--- NOTE | 2018-11-20 00:52 | P.HPIM ---
History of Present Illness H&P Date: 11/19/18 Chief Complaint: Alcohol intoxication 38-year-old male with history of alcohol abuse. Patient admits that he relapsed 2 weeks ago secondary to problems with his girlfriend who kicked him out of the house. He started drinking since then he became homeless. Patient reports that today he was across the street from the hospital drinking and then somehow woke up feeling severe pain and has had he thinks that he apparently fell and hit his head he doubts any seizure he denies any history of epilepsy but admits to alcohol withdrawal seizures and severe delirium tremens in the past. He came to the hospital for further evaluation. He denies any fevers chills coughing chest pain trouble breathing. Denies any abdominal pain GI bleeding changes in his bowel or urinary habits. Denies any focal neuro deficits. In the ED he was found to be in severe alcohol intoxication scan of the head showed no acute process except for swollen right eyelid Patient was admitted for treatment of severe alcohol intoxication pending alcohol withdrawal Review of Systems Pertinent positives as noted in HPI. All other systems were reviewed and are negative Past Medical History Past Medical History: Pneumonia Additional Past Medical History / Comment(s): VERTIGO IN PAST,ETOH ABUSE, WITH DRAWLS/DT"S. SEIZURE x2 D/T ETOH in 2016, chronic alcoholic thrombocytopenia History of Any Multi-Drug Resistant Organisms: None Reported Past Surgical History: No Surgical Hx Reported Additional Past Surgical History / Comment(s): RT WRIST SX Past Anesthesia/Blood Transfusion Reactions: No Reported Reaction Additional Past Anesthesia/Blood Transfusion Reaction / Comment(s): CLAUSTERPHOBIA Past Psychological History: No Psychological Hx Reported Smoking Status: Never smoker Past Alcohol Use History: Daily - Past Family History Mother Family Medical History: Fibromyalgia, Rheumatoid Arthritis (RA) Father Family Medical History: Osteoarthritis (OA) Additional Family Medical History / Comment(s): BACK PROBLEMS Medications and Allergies Allergies Allergy/AdvReac Type Severity Reaction Status Date / Time chocolate flavor Allergy Rash/Hives Verified 11/19/18 20:45 coconut oil Allergy Rash/Hives Verified 11/19/18 20:45 pineapple Allergy Rash/Hives Verified 11/19/18 20:45 Physical Exam Vitals: Vital Signs Temp Pulse Resp BP Pulse Ox 11/19/18 21:15 89 16 143/86 100 11/19/18 18:44 98.7 F 81 18 127/72 99 Intake and Output 11/19/18 11/19/18 11/19/18 06:59 14:59 22:59 Other: Weight 77.111 kg Constitutional: No acute distress, conversant, cooperative with exam and interview Eyes: Anicteric sclerae, moist conjunctiva, swollen right eyelid with ecchymosis warm to the touch and tender. However sclerae is intact Pupils equal round reactive to light ENMT: NC/bruising and ecchymosis around the right eyelid no visible cuts no active bleeding Oropharynx clear, no erythema, or exudates Neck: Supple, FROM, no masses, or JVD No carotid bruits No thyromegaly Lungs: Clear to auscultation Clear to percussion Normal respiratory effort, no accessory muscle use Cardiovascular: Heart regular in rate and rhythm, No murmurs, gallops, or rubs No peripheral edema Abdominal: Soft Nontender, no guarding, rebound or rigidity Abdomen moving with respiration Normoactive bowel sounds No hepatomegaly, No splenomegaly No palpable mass No abdominal wall hernia noted Skin: Normal temperature, tone, texture, turgor No induration No subcutaneous nodules No rash, lesions No ulcers Extremities: No digital cyanosis No clubbing Pedal pulses intact and symmetrical Radial pulses intact and symmetrical No calf tenderness Psychiatric: Alert and oriented to person, place not oriented to time Patient is anxious Poor judgement Neuro Muscles Strength 4/5 in all 4 extremities Sensation to light touch grossly present throughout Cranial nerves II-XII grossly intact No focal sensory deficits Lymphatics: no palpable cervical or supraclavicular , or inguinal lymph nodes Results CBC & Chem 7: 11/19/18 20:38 11/19/18 20:38 Labs: Abnormal Lab Results - Last 24 Hours (Table) 11/19/18 11/19/18 Range/Units 20:38 20:38 WBC 3.2 L (3.8-10.6) k/uL BUN 5 L (9-20) mg/dL Creatinine 0.54 L (0.66-1.25) mg/dL Glucose 102 H (74-99) mg/dL AST 133 H (17-59) U/L ALT 162 H (21-72) U/L Serum Alcohol 417 H* mg/dL Assessment and Plan Assessment: 38-year-old male with history of alcohol abuse. Patient admitted as inpatient with anticipated length of stay more than 48 hours due to severe alcohol intoxication pending alcohol withdrawal. Patient had ecchymosis of the right eye secondary to fall that he doesn't recall. 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
[2018-11-20] MEDS: SODIUM CHLORIDE 0.9% 1,000 ML IV SCH ×2 (06:01→11:54)
[2018-11-20] MEDS: THIAMINE 100 MG TAB PO SCH ×2 (07:31→16:44)
[2018-11-20] MEDS: MULTIVITAMINS, THERA 1 EACH TAB PO SCH (07:31)
[2018-11-20] MEDS: FAMOTIDINE 20 MG TAB PO SCH ×2 (07:32→20:26)
[2018-11-20] MEDS: LORazepam 2 MG/ML INJ IV PRN ×2 (11:53→16:45)
--- NOTE | 2018-11-20 19:52 | P.PN ---
Subjective Progress Note Date: 11/20/18 The patient was seen and examined at the bedside in 11/20/2018. The patient continued to be tremulous though denied any active complaints. He denied fever, chills, chest pain, shortness of breath. Objective - Vital Signs Vital signs: Vital Signs Temp 98.6 F 11/20/18 14:20 Pulse 111 H 11/20/18 14:20 Resp 16 11/20/18 16:00 BP 141/72 11/20/18 14:20 Pulse Ox 99 11/20/18 14:20 Intake & Output 11/20/18 11/20/18 11/21/18 06:59 18:59 06:59 Intake Total 200 Balance 200 Intake: Oral 200 Other: Voiding Method Urinal # Voids 1 1 0 # Bowel Movements 0 - Exam General: Non-toxic, in no acute distress, disheveled, appears stated age, normal weight HEENT: NC/AT, anicteric sclerae, moist conjunctiva, no lid-lag, PERRLA Cardiovascular: S1/S2 wnl, no murmurs, rubs, or gallops Lungs: Clear to auscultation, normal respiratory effort, no accessory muscle use Abdominal: Soft, non-tender, non-distended, no guarding, rebound, or rigidity Skin: Warm, dry Extremities: No edema or contractures Psychiatric: Alert and oriented to person and place only, not fully oriented to time, appropriate affect Neuro: CN II-XII grossly intact, Strength 4/5 in all 4 extremities, outstretched hand tremor, tongue fasciculations, Speech intact, Sensation to light touch grossly intact throughout - Labs CBC & Chem 7: 11/19/18 20:38 11/19/18 20:38 Labs: Abnormal Lab Results - Last 24 Hours (Table) 11/19/18 11/19/18 Range/Units 20:38 20:38 WBC 3.2 L (3.8-10.6) k/uL BUN 5 L (9-20) mg/dL Creatinine 0.54 L (0.66-1.25) mg/dL Glucose 102 H (74-99) mg/dL AST 133 H (17-59) U/L ALT 162 H (21-72) U/L Serum Alcohol 417 H* mg/dL Assessment and Plan Plan: Alcohol withdrawal -Continue with the protocol -Fall, seizure, aspiration precautions -Continue with thiamine -Monitor electrolytes and replace as needed Leukopenia -Likely secondary to alcohol abuse Abnormal LFTs -Secondary to alcohol abuse
[2018-11-21] MEDS: SODIUM CHLORIDE 0.9% 1,000 ML IV SCH ×4 (00:09→23:31)
[2018-11-21] MEDS: LORazepam 2 MG/ML INJ IV PRN ×8 (00:12→21:01)
[2018-11-21] MEDS: MULTIVITAMINS, THERA 1 EACH TAB PO SCH (08:18)
[2018-11-21] MEDS: THIAMINE 100 MG TAB PO SCH ×2 (08:18→16:31)
[2018-11-21] MEDS: FAMOTIDINE 20 MG TAB PO SCH ×2 (08:18→20:20)
[2018-11-21] MEDS ORDERED: chlordiazePOXIDE 25 MG CAP PO STA (09:09)
--- NOTE | 2018-11-21 09:14 | P.PN ---
Subjective Progress Note Date: 11/21/18 Principal diagnosis: alcohol withdrawal 38-year-old male with PMH of alcohol abuse presents the ED for fall and severe alcohol intoxication. CT of the brain/C-spine shows periorbital soft tissue swelling. Patient was seen and examined. No acute events overnight. Patient reports nausea, able to hold down a little bit of breakfast this morning without vomiting. He denies any chest pain, shortness of breath or palpitations. Interested in going back to [facility]. States that he will stay with his sister on discharge. Most recent CIWA score was 7. Objective - Vital Signs Vital signs: Vital Signs Temp 98.4 F 11/21/18 05:10 Pulse 81 11/21/18 05:10 Resp 20 11/21/18 05:10 BP 136/80 11/21/18 05:10 Pulse Ox 99 11/21/18 05:10 Intake & Output 11/20/18 11/21/18 11/21/18 18:59 06:59 18:59 Intake Total 401 Balance 401 Intake: Oral 401 Other: Voiding Method Urinal Urinal # Voids 1 2 # Bowel Movements 0 - Exam General: [non toxic], [no distress], [appears at stated age] Derm: [warm], [dry] Head: [atraumatic], [normocephalic], [symmetric] Eyes: [EOMI], [no lid lag], [ecchymotic right eye] Mouth: [no lip lesion], [mucus membranes moist] Cardiovascular: [S1S2 reg], [no murmur], [positive DP pulse bilateral] Lungs: [CTA bilateral], [no rhonchi, no rales] , [no accessory muscle use] Abdominal: [soft], [ nontender to palpation], [no guarding], [no appreciable organomegaly] Ext: [no gross muscle atrophy], [no edema], [no contractures] Neuro: [no focal neuro deficits] Psych: [Alert], [oriented], [appropriate affect] - Labs CBC & Chem 7: 11/19/18 20:38 11/19/18 20:38 Assessment and Plan Assessment: Assessment and Plan 1. Alcohol withdrawal with history of seizures and severe DTs 2. Alcoholic hepatitis 3. Leukopenia 4. Right eye ecchymosis and swollen eyelid secondary to fall 1. Serum alcohol on admission 417. Plan: CIWA protocol. Ativan as needed for CIWA > 8. Continue multivitamin and thiamine. Continue normal saline at 120 mL per hour. Neurochecks. Start low-dose Librium today, check LFT tomorrow. Seizure and fall precautions. 2. AST 133, ALT 162. Likely secondary to alcohol abuse. Plan: Follow-up in the outpatient setting. 3. WBC 3.2. Likely secondary to alcohol abuse. Plan: Follow-up in the outpatient setting. 4. CT brain and C-spine negative. Plan: Cold compresses. Patient admitted for alcohol intoxication, with history of severe DTs and seizures. Start low-dose Librium today, check LFT tomorrow. Plans on DC tomorrow. He will need to get in touch with [facility] in order to enroll into inpatient rehab.
[2018-11-21 11:33] LABS: HCT 42.1 % (39.0-53.0); HGB 13.4 gm/dL (13.0-17.5); MCH 27.4 pg (25.0-35.0); MCHC 31.8 g/dL (31.0-37.0); MCV 86.1 fL (80.0-100.0); Mean Platelet Volume 6.5; Platelet Count 152 k/uL (150-450); RBC 4.89 m/uL (4.30-5.90); RDW 13.7 % (11.5-15.5); WBC 6.6 k/uL (3.8-10.6)
[2018-11-21 11:46] LABS: ALT 111 U/L (21-72); AST 75 U/L (17-59); African American GFR (CKD) >90 (>60 ml/min/1.73 sqM); Alkaline Phosphatase 95 U/L (38-126); Anion Gap 5 mmol/L; Blood Urea Nitrogen 4 mg/dL (9-20); Calcium 9.5 mg/dL (8.4-10.2); Carbon Dioxide 29 mmol/L (22-30); Chloride 101 mmol/L (98-107); Glucose 146 mg/dL (74-99); Magnesium 1.8 mg/dL (1.6-2.3); Potassium 4.3 mmol/L (3.5-5.1); Sodium 135 mmol/L (137-145); Total Bilirubin 0.8 mg/dL (0.2-1.3); Total Protein 6.5 g/dL (6.3-8.2)
[2018-11-21] MEDS: chlordiazePOXIDE 25 MG CAP PO PRN ×2 (17:33→23:31)
[2018-11-22] MEDS: LORazepam 2 MG/ML INJ IV PRN ×4 (00:26→05:50)
[2018-11-22 06:17] VITALS: BP 144/83; PULSE 76; RESP 16; TEMP 97.8
[2018-11-22] MEDS: SODIUM CHLORIDE 0.9% 1,000 ML IV SCH (07:29)
[2018-11-22] MEDS: FAMOTIDINE 20 MG TAB PO SCH (07:29)
[2018-11-22] MEDS: MULTIVITAMINS, THERA 1 EACH TAB PO SCH (07:29)
[2018-11-22] MEDS: THIAMINE 100 MG TAB PO SCH (07:29)
[2018-11-22] MEDS: chlordiazePOXIDE 25 MG CAP PO PRN (07:34)
--- NOTE | 2018-11-24 12:21 | CDI ---
[facility] Documentation Clarification Form Date: 11/24/18 From: Laila Franco Phone: If you have a question regarding this query, please contact Linda Villa at [phone] between 8am and 5pm. Admit Date: 11/20/2018 8:39:00 AM Patient Name: Prashanth Lee Visit Number: [id number] Discharge Date: 11/22/2018 9:07:00 AM ATTENTION: The Clinical Documentation Specialists (CDI) and [facility] Coding Staff appreciate your assistance in clarifying documentation. Please respond to the clarification below the line at the bottom and electronically sign. The CDI & [facility] Coding staff will review the response and follow-up if needed. Please note: Queries are made part of the Legal Health Record. If you have any questions, please contact the author of this message via ITS. Dr. Taya White Documentation and the location in the medical record included alcoholic intoxication, alcoholic hepatitis and chronic alcoholic thromobcytopenia. Severe alcohol intoxication secondary to alcohol abuse is also documented. History/Risk Factors: Patient has a history of withdrawal seizures. Clinical Indicators: Drinking 1 case of beer daily. Labs: WBC 3.2, AST 133, ALT 162 Treatment: CIWA protocol. Patient left AMA. In your professional opinion, can you please clarify if the above clinical indicators and treatment signify any of the following? Alcohol dependence Alcohol abuse Other, please specify Unable to determine alcohol dependence MTDD
--- NOTE | 2018-11-24 16:02 | P.DS ---
Providers Date of admission: 11/20/18 08:39 Expected date of discharge: 11/24/18 Attending physician: Taya White MD Primary care physician: Stated None Hospital Course: 38-year-old male with history of alcohol abuse. Patient admits that he relapsed 2 weeks ago secondary to problems with his girlfriend who kicked him out of the house. He started drinking since then he became homeless. Patient reports that today he was across the street from the hospital drinking and then somehow woke up feeling severe pain and has had he thinks that he apparently fell and hit his head he doubts any seizure he denies any history of epilepsy but admits to alcohol withdrawal seizures and severe delirium tremens in the past. He came to the hospital for further evaluation. He denies any fevers chills coughing chest pain trouble breathing. Denies any abdominal pain GI bleeding changes in his bowel or urinary habits. Denies any focal neuro deficits. In the ED he was found to be in severe alcohol intoxication scan of the head showed no acute process except for swollen right eyelid Patient was admitted for treatment of severe alcohol intoxication pending alcohol withdrawal. Patient was admitted for alcohol withdrawal. His symptoms are controlled with Ativan and Librium as needed. He was placed on CIWA protocol, with fall and seizure precautions. Patient left AMA prior to being seen. 1. Alcohol withdrawal with history of seizures and severe DTs 2. Alcoholic hepatitis 3. Leukopenia 4. Right eye ecchymosis and swollen eyelid secondary to fall Pertinent Studies: Head CT, C-spine CT Patient Condition at Discharge: Fair Plan - Discharge Summary Discharge Rx Participant: Yes New Discharge Prescriptions: No Action No Known Home Medications Discharge Medication List No Known Home Medications 11/23/18 [History] Follow up Appointment(s)/Referral(s): None,Stated [Primary Care Provider] - 1-2 days Activity/Diet/Wound Care/Special Instructions: Any new prescriptions, patient will need indigent funds. Form is on Chart, please send to [facility] pharmacy. Discharge Disposition: Left Against Medical Advice
== END 2018-11-22 09:07 | disposition left against medical advice (07) | DRG 894 ==
LOC: EC 18:06 → 4MS4W 20:46 → OBSVTOIN 11-20 08:39
PROVIDERS: ADMIT Internal Medicine; ATTEND Internal Medicine
DX: F10.239 Alcohol dependence with withdrawal, unspecified (principal); K70.10 Alcoholic hepatitis without ascites; F10.229 Alcohol dependence with intoxication, unspecified; D72.819 Decreased white blood cell count, unspecified; S05.11XA Contusion of eyeball and orbital tissues, right eye, initial encounter; F40.240 Claustrophobia; R74.8 Abnormal levels of other serum enzymes; Z79.899 Other long term (current) drug therapy; Z91.018 Allergy to other foods; Z87.01 Personal history of pneumonia (recurrent); Z59.0 Homelessness; Z82.61 Family history of arthritis; W19.XXXA Unspecified fall, initial encounter; Y90.9 Presence of alcohol in blood, level not specified
CPT/HCPCS: 36415; 70450; 72125; 80053; 80320; 82075; 83735; 85025; 85027; 85610; 96360; 96361; 96372; 99285

== ENCOUNTER 2018-11-23 16:00 | Inpatient (IN) | payer OTHER ==
[2018-11-23] MEDS ORDERED: SODIUM CHLORIDE 0.9% 1,000 ML IV STA ×2 (17:02)
[2018-11-23] MEDS ORDERED: LORazepam 2 MG/ML INJ IV STA (17:02)
--- NOTE | 2018-11-23 17:07 | ED ---
Seizure HPI - General Chief Complaint: Seizure Stated Complaint: ETOH AND SEIZURE Time Seen by Provider: 11/23/18 16:56 Source: patient, EMS, RN notes reviewed, old records reviewed Mode of arrival: EMS Limitations: no limitations - History of Present Illness Initial Comments: Patient is a 38-year-old male presents emergency department today for evaluation for complaints of seizure. [place] Apparently had a tonic-clonic seizure lasted over a minute. Patient was seen in the emergency department today 3 days ago for alcohol intoxication and possible seizure that time. is unsure if he hit his head. He does have contusion over his eye, he states he does not know if that occurred. Patient states he's had no recent vomiting. He denies any associated chest pain or shortness of breath at this time. - Related Data Home Medications Medication Instructions Recorded Confirmed No Known Home Medications 11/23/18 11/23/18 Allergies Allergy/AdvReac Type Severity Reaction Status Date / Time chocolate flavor Allergy Rash/Hives Verified 11/23/18 16:31 coconut oil Allergy Rash/Hives Verified 11/23/18 16:31 pineapple Allergy Rash/Hives Verified 11/23/18 16:31 Review of Systems ROS Statement: Those systems with pertinent positive or pertinent negative responses have been documented in the HPI. ROS Other: All systems not noted in ROS Statement are negative. Past Medical History Past Medical History: Pneumonia Additional Past Medical History / Comment(s): VERTIGO IN PAST,ETOH ABUSE, [place] THDRAWLS/DT"S. SEIZURE x2 D/T ETOH in 2016, chronic alcoholic thrombocytopenia History of Any Multi-Drug Resistant Organisms: None Reported Past Surgical History: No Surgical Hx Reported Additional Past Surgical History / Comment(s): RT WRIST SX Past Anesthesia/Blood Transfusion Reactions: No Reported Reaction Additional Past Anesthesia/Blood Transfusion Reaction / Comment(s): CLAUSTERPHOBIA Past Psychological History: Anxiety, Depression Smoking Status: Never smoker Past Alcohol Use History: Daily Past Drug Use History: None Reported - Past Family History Mother Family Medical History: Fibromyalgia, Rheumatoid Arthritis (RA) Father Family Medical History: Osteoarthritis (OA) Additional Family Medical History / Comment(s): BACK PROBLEMS General Exam - General Exam Comments Initial Comments: 38-year-old male. Alert and oriented. No significant distress. Patient appears intoxicated. Limitations: no limitations General appearance: alert, appears intoxicated (Old alcohol on breath.) Head exam: Present: atraumatic, normocephalic, normal inspection Eye exam: Present: normal appearance, PERRL, EOMI. Absent: scleral icterus, conjunctival injection, periorbital swelling ENT exam: Present: normal exam Neck exam: Present: normal inspection Respiratory exam: Present: normal lung sounds bilaterally. Absent: respiratory distress, wheezes, rales, rhonchi, stridor Cardiovascular Exam: Present: regular rate, normal rhythm, normal heart sounds. Absent: systolic murmur, diastolic murmur, rubs, gallop, clicks GI/Abdominal exam: Present: soft, normal bowel sounds. Absent: distended, tenderness, guarding, rebound, rigid Extremities exam: Present: normal inspection, full ROM, normal capillary refill. Absent: tenderness, pedal edema, joint swelling, calf tenderness Back exam: Present: normal inspection Neurological exam: Present: alert, altered, other (Patient is intoxicated.) Psychiatric exam: Present: normal affect, normal mood Skin exam: Present: warm, dry, intact, normal color. Absent: rash Course Vital Signs 11/23/18 11/23/18 16:14 17:42 Temperature 97.8 F Pulse Rate 71 77 Respiratory 18 18 Rate Blood Pressure 112/81 O2 Sat by Pulse 100 100 Oximetry Medical Decision Making - Medical Decision Making Patient is a 38-year-old male with a history of alcohol abuse, currently homeless. He presents today for concerns for seizure [place] He also arrived to emergency department appearing intoxicated and postictal. Upon evaluation Patient does not appear his head. He does have contusion over the right eye. Computed tomography scan of brain disorder due to confusion possibility fall and seizure activity. This is negative for any acute process. Blood work was reviewed. Patient is elevated liver enzymes. ETOH go levels 471. Patient will be admitted at this time. - Lab Data Result diagrams: 11/23/18 16:31 11/23/18 16:31 Lab Results 11/23/18 11/23/18 11/23/18 Range/Units 16:31 16:31 17:37 WBC 7.0 (3.8-10.6) k/uL RBC 5.24 (4.30-5.90) m/uL Hgb 14.2 (13.0-17.5) gm/dL Hct 45.2 (39.0-53.0) % MCV 86.3 (80.0-100.0) fL MCH 27.1 (25.0-35.0) pg MCHC 31.5 (31.0-37.0) g/dL RDW 15.3 (11.5-15.5) % Plt Count 163 (150-450) k/uL Neutrophils % 65 % Lymphocytes % 22 % Monocytes % 7 % Eosinophils % 2 % Basophils % 0 % Neutrophils # 4.5 (1.3-7.7) k/uL Lymphocytes # 1.5 (1.0-4.8) k/uL Monocytes # 0.5 (0-1.0) k/uL Eosinophils # 0.2 (0-0.7) k/uL Basophils # 0.0 (0-0.2) k/uL Sodium 148 H (137-145) mmol/L Potassium 4.1 (3.5-5.1) mmol/L Chloride 111 H (98-107) mmol/L Carbon Dioxide 23 (22-30) mmol/L Anion Gap 14 mmol/L BUN 6 L (9-20) mg/dL Creatinine 0.59 L (0.66-1.25) mg/dL Est GFR (CKD-EPI)AfAm >90 (>60 ml/min/1.73 sqM) Est GFR (CKD-EPI)NonAf >90 (>60 ml/min/1.73 sqM) Glucose 90 (74-99) mg/dL Calcium 8.9 (8.4-10.2) mg/dL Total Bilirubin 0.2 (0.2-1.3) mg/dL AST 189 H (17-59) U/L ALT 179 H (21-72) U/L Alkaline Phosphatase 88 (38-126) U/L Total Protein 7.6 (6.3-8.2) g/dL Albumin 4.6 (3.5-5.0) g/dL Urine Color Colorless Urine Appearance Clear (Clear) Urine pH 5.5 (5.0-8.0) Ur Specific [place] 1.004 (1.001-1.035) Urine Protein Negative (Negative) Urine Glucose (UA) Negative (Negative) Urine Ketones Negative (Negative) Urine Blood Negative (Negative) Urine Nitrite Negative (Negative) Urine Bilirubin Negative (Negative) Urine Urobilinogen <2.0 (<2.0) mg/dL Ur Leukocyte Esterase Negative (Negative) Urine Opiates Screen Not Detected (NotDetected) Ur Oxycodone Screen Not Detected (NotDetected) Urine Methadone Screen Not Detected (NotDetected) Ur Propoxyphene Screen Not Detected (NotDetected) Ur Barbiturates Screen Not Detected (NotDetected) U Tricyclic Antidepress Not Detected (NotDetected) Ur Phencyclidine Scrn Not Detected (NotDetected) Ur Amphetamines Screen Not Detected (NotDetected) U Methamphetamines Scrn Not Detected (NotDetected) U Benzodiazepines Scrn Not Detected (NotDetected) Urine Cocaine Screen Not Detected (NotDetected) U Marijuana (THC) Screen Not Detected (NotDetected) Serum Alcohol 417 H* mg/dL 11/23/18 19:16 EKG shows sinus rhythm with occasional PVCs, otherwise normal EKG. Ventricular rate of 76 bpm. Intervals 156 ms. She druze 94 ms. QT QTC 374/420 ms. - Radiology Data Radiology results: report reviewed CT brain is negative Disposition Clinical Impression: Generalized seizure, Alcoholic intoxication, Alcohol withdrawal Disposition: ADMITTED IP TO THIS [facility] Condition: Stable Is patient prescribed a controlled substance at d/c from ED?: No Referrals: None,Stated [Primary Care Provider] - 1-2 days Time of Disposition: 19:38
[2018-11-23 17:43] LABS: Basophils % (A) 0 %; Eosinophils # (A) 0.2 k/uL (0-0.7); Eosinophils % (A) 2 %; HCT 45.2 % (39.0-53.0); HGB 14.2 gm/dL (13.0-17.5); Lymphocytes # (A) 1.5 k/uL (1.0-4.8); Lymphocytes % (A) 22 %; MCH 27.1 pg (25.0-35.0); MCHC 31.5 g/dL (31.0-37.0); MCV 86.3 fL (80.0-100.0); Mean Platelet Volume 6.7; Monocytes # (A) 0.5 k/uL (0-1.0); Monocytes % (A) 7 %; Neutrophils # (A) 4.5 k/uL (1.3-7.7); Neutrophils % (A) 65 %; Platelet Count 163 k/uL (150-450); RBC 5.24 m/uL (4.30-5.90); RDW 15.3 % (11.5-15.5)
[2018-11-23 17:49] LABS: ALT 179 U/L (21-72); AST 189 U/L (17-59); Albumin 4.6 g/dL (3.5-5.0); Alkaline Phosphatase 88 U/L (38-126); Anion Gap 14 mmol/L; Blood Urea Nitrogen 6 mg/dL (9-20); Calcium 8.9 mg/dL (8.4-10.2); Carbon Dioxide 23 mmol/L (22-30); Chloride 111 mmol/L (98-107); Glucose 90 mg/dL (74-99); Potassium 4.1 mmol/L (3.5-5.1); Sodium 148 mmol/L (137-145); Total Bilirubin 0.2 mg/dL (0.2-1.3); Total Protein 7.6 g/dL (6.3-8.2)
[2018-11-23 17:49] LABS: Appearance,Urine Clear (Clear); Bilirubin,Urine Negative (Negative); Blood,Urine Negative (Negative); Color,Urine Colorless; Glucose,Urine (UA) Negative (Negative); Ketones,Urine Negative (Negative); Leukocyte Esterase,Urine Negative (Negative); Nitrite,Urine Negative (Negative); PH, Urine 5.5 (5.0-8.0); Protein,Urine Negative (Negative); Specific Gravity,Urine 1.004 (1.001-1.035); Urobilinogen,Urine <2.0 mg/dL (<2.0)
[2018-11-23 17:59] LABS: Alcohol 417 mg/dL
[2018-11-23 18:04] LABS: Amphetamine Screen,Urine Not Detected (NotDetected); Barbiturate Screen,Urine Not Detected (NotDetected); Benzodiazepines Screen,Urine Not Detected (NotDetected); Cocaine Screen,Urine Not Detected (NotDetected); Methadone Screen, Urine Not Detected (NotDetected); Opiate Screen,Urine Not Detected (NotDetected); Oxycodone Screen, Urine Not Detected (NotDetected); Phencyclidine Screen,Urine Not Detected (NotDetected); Tricyclic Antidepressant,Urine Not Detected (NotDetected); Urn Cannabinoid Scrn Not Detected (NotDetected)
--- NOTE | 2018-11-23 18:27 | CT ---
EXAMINATION TYPE: CT brain wo con DATE OF EXAM: 11/23/2018 COMPARISON: 11/19/2018 HISTORY: Seizure, ETOH CT DLP: 1100.4 mGycm. Automated Exposure Control for Dose Reduction was Utilized. TECHNIQUE: CT scan of the head is performed without contrast. FINDINGS: Ventricles of normal size. There is no mass effect nor midline shift. There is no sign of i ntracranial hemorrhage. There is right-sided periorbital soft tissue swelling. There is no evidence o f a fracture. IMPRESSION: Negative CT scan of the brain. Right periorbital soft tissue swelling and hematoma unchanged.
[2018-11-23] MEDS ORDERED: THIAMINE 100 MG/ML 2 ML VIAL IM STA (19:34)
[2018-11-23] MEDS ORDERED: LORazepam 2 MG/ML INJ IV PRN ×2 (19:34)
[2018-11-23] MEDS ORDERED: IBUPROFEN 400 MG TAB PO PRN (19:39)
[2018-11-23] MEDS ORDERED: NALOXONE 0.4 MG/ML 1 ML VIAL IV PRN (19:39)
[2018-11-23] MEDS ORDERED: MORPHINE SULFATE 4 MG/ML SYRINGE IV PRN (19:39)
[2018-11-23] MEDS ORDERED: traMADol 50 MG TAB PO PRN (19:39)
[2018-11-23] MEDS ORDERED: SODIUM CHLORIDE 0.9% 1,000 ML IV SCH (19:45)
[2018-11-23] MEDS ORDERED: SODIUM CHLORIDE 0.9% 1,000 ML with MVI, ADULT NO.4 WITH VIT K 10 ML, THIAMINE 100 MG, F... IV ONE ×4 (20:00)
--- NOTE | 2018-11-23 21:10 | P.HPIM ---
History of Present Illness H&P Date: 11/23/18 Chief Complaint: Seizure, alcohol intoxication 38-year-old male with history of alcohol abuse Patient unable to provide any meaningful history at this time, due to severe alc ohol intoxication. History obtained by reviewing records and discussing case with ER doctor. Seems like he was brought into the hospital after a bystander witnessed a possible seizure that lasted for a minute on the sidewalk. In the ED patient was found to be severely intoxicated with alcohol. Patient is known in the hospital with frequent presentation with acute alcohol intoxication. He was s long for a while and has relapsed couple weeks ago after going through a difficult relationship issues and ended up on the street being homeless. Initial workup in the ED showed severe alcohol intoxication, slightly elevated sodium level. And elevated liver enzymes due to alcohol Review of Systems ROS unobtainable: due to mental status Past Medical History Past Medical History: Pneumonia Additional Past Medical History / Comment(s): VERTIGO IN PAST,ETOH ABUSE, WITHDRAWLS/DT"S. SEIZURE x2 D/T ETOH in 2015, chronic alcoholic thrombocytopenia History of Any Multi-Drug Resistant Organisms: None Reported Past Surgical History: No Surgical Hx Reported Additional Past Surgical History / Comment(s): RT WRIST SX Past Anesthesia/Blood Transfusion Reactions: No Reported Reaction Additional Past Anesthesia/Blood Transfusion Reaction / Comment(s): CLAUSTERPHOBIA Past Psychological History: Anxiety, Depression Smoking Status: Never smoker Past Alcohol Use History: Daily Past Drug Use History: None Reported - Past Family History Mother Family Medical History: Fibromyalgia, Rheumatoid Arthritis (RA) Father Family Medical History: Osteoarthritis (OA) Additional Family Medical History / Comment(s): BACK PROBLEMS Medications and Allergies Home Medications Medication Instructions Recorded Confirmed Type No Known Home Medications 11/23/18 11/23/18 History Allergies Allergy/AdvReac Type Severity Reaction Status Date / Time chocolate flavor Allergy Rash/Hives Verified 11/23/18 16:31 coconut oil Allergy Rash/Hives Verified 11/23/18 16:31 pineapple Allergy Rash/Hives Verified 11/23/18 16:31 Physical Exam Vitals: Vital Signs Temp Pulse Resp BP Pulse Ox 11/23/18 17:42 77 18 112/81 100 11/23/18 16:14 97.8 F 71 18 100 Intake and Output 11/23/18 11/23/18 11/23/18 06:59 14:59 22:59 Other: Weight 77.111 kg Constitutional: Patient is intoxicated with alcohol Eyes: Anicteric sclerae, moist conjunctiva Pupils equal round reactive to light ENMT: NC/right eye with periorbital hematoma and ecchymosis Oropharynx clear, no erythema, or exudates Neck: Supple, FROM, no masses, or JVD No carotid bruits No thyromegaly Lungs: Clear to auscultation Clear to percussion Normal respiratory effort, no accessory muscle use Cardiovascular: Heart regular in rate and rhythm, No murmurs, gallops, or rubs No peripheral edema Abdominal: Soft Nontender, no guarding, rebound or rigidity Abdomen moving with respiration Normoactive bowel sounds No hepatomegaly, No splenomegaly No palpable mass No abdominal wall hernia noted Skin: Normal temperature, tone, texture, turgor No induration No subcutaneous nodules No rash, lesions No ulcers Extremities: No digital cyanosis No clubbing Pedal pulses intact and symmetrical Radial pulses intact and symmetrical No calf tenderness Psychiatric: Severely intoxicated Neuro unable to perform neurologic exam at this time due to patient severely intoxicated with alcohol unable to cooperate Patient wakes up briefly to verbal stimulation Lymphatics: no palpable cervical or supraclavicular , or inguinal lymph nodes Results CBC & Chem 7: 11/23/18 16:31 11/23/18 16:31 Labs: Abnormal Lab Results - Last 24 Hours (Table) 11/23/18 Range/Units 16:31 Sodium 148 H (137-145) mmol/L Chloride 111 H (98-107) mmol/L BUN 6 L (9-20) mg/dL Creatinine 0.59 L (0.66-1.25) mg/dL AST 189 H (17-59) U/L ALT 179 H (21-72) U/L Serum Alcohol 417 H* mg/dL Assessment and Plan Assessment: 38-year-old male with history of alcohol abuse and history of severe alcohol withdrawal syndrome with delirium tremens and seizures Admitted under observation with anticipated length of stay less than 48 hours due to a witnessed seizurewith by bystanders, patient was found to have high alcohol level in severe alcohol intoxication with delirium Plan: Acute severe alcohol intoxication with delirium Possible seizure Right periorbital hematoma due to recent fall Alcoholic hepatitis Mild hypernatremia secondary to dehydration Plan IV fluid hydration Toxicology screen Seizure precautions Fall precautions IV fluid hydration Benzos per CIWA for withdrawal symptoms Thiamine Neurology evaluation, patient is having seizure while intoxicated with alcohol, patient denies any history of seizures in the past. Alcohol is known to lower threshold for seizures in patients with history of epilepsy. Computed tomography scan of the head no acute changes compared to before Follow-up liver function out of school hours care worker consult for discharge planning patient is homeless Follow-up electrolytes DVT prophylaxis heparin subcu 3 times a day Preformed a thorough record review from recent hospitalization for severe alcohol intoxication and head trauma secondary to fall with possible seizure Surrogate decision-maker: unable to name due to mental status changes from alcohol intoxication CODE STATUS: Full code by default Discussed with: Patient, ER Anticipated discharge: Less than [address]: senior living A total of 60 minutes was spent on the care of this complex patient more than 50% of the time was spent in counseling and care coordination.
[2018-11-23] MEDS: THIAMINE 100 MG TAB PO SCH (22:17)
[2018-11-24 05:30] VITALS: BP 103/62; PULSE 75; RESP 20; TEMP 98.5
[2018-11-24] MEDS: THIAMINE 100 MG TAB PO SCH (07:32)
[2018-11-24] MEDS: LORazepam 2 MG/ML INJ IV PRN ×2 (07:33→10:18)
[2018-11-24] MEDS ORDERED: PANTOPRAZOLE 40 MG/10 ML VIAL IV SCH (09:00)
[2018-11-24 09:15] LABS: Basophils % (A) 0 %; Eosinophils # (A) 0.2 k/uL (0-0.7); Eosinophils % (A) 2 %; HGB 12.7 gm/dL (13.0-17.5); Lymphocytes # (A) 0.7 k/uL (1.0-4.8); Lymphocytes % (A) 7 %; MCH 27.6 pg (25.0-35.0); MCHC 31.7 g/dL (31.0-37.0); MCV 87.1 fL (80.0-100.0); Mean Platelet Volume 6.9; Monocytes # (A) 0.5 k/uL (0-1.0); Monocytes % (A) 5 %; Neutrophils # (A) 7.8 k/uL (1.3-7.7); Neutrophils % (A) 84 %; Platelet Count 125 k/uL (150-450); RBC 4.59 m/uL (4.30-5.90); RDW 15.6 % (11.5-15.5); WBC 9.3 k/uL (3.8-10.6)
[2018-11-24 09:32] LABS: ALT 159 U/L (21-72); AST 145 U/L (17-59); Albumin 3.6 g/dL (3.5-5.0); Alkaline Phosphatase 74 U/L (38-126); Anion Gap 8 mmol/L; Blood Urea Nitrogen 6 mg/dL (9-20); Calcium 8.5 mg/dL (8.4-10.2); Carbon Dioxide 24 mmol/L (22-30); Chloride 108 mmol/L (98-107); Glucose 93 mg/dL (74-99); Potassium 3.8 mmol/L (3.5-5.1); Sodium 140 mmol/L (137-145); Total Bilirubin 0.4 mg/dL (0.2-1.3)
--- NOTE | 2018-11-24 13:19 | P.DS ---
Providers Date of admission: 11/23/18 19:23 Expected date of discharge: 11/24/18 Attending physician: Taya White MD Primary care physician: Stated None - Discharge Diagnosis(es) (1) Acute alcoholic intoxication with delirium Status: Acute (2) Periorbital hematoma of right eye Status: Acute (3) Alcoholic hepatitis Status: Chronic (4) Hypernatremia Status: Acute (5) Left against medical advice Status: Acute Hospital Course: The patient is a 38-year-old male with known history of alcohol abuse and severe alcoholic withdrawal with a history of delirium tremens that was admitted for acute alcohol intoxication with a significantly elevated serum alcohol level of 471, he was admitted and placed on IV hydration, fall precautions, benzodiazepines Ativan per symptom triggered [facility] withdrawal protocol, there are reports of possible seizure in the field however CT of the head was negative for any acute intracranial changes. There was no witnessed seizure here. The patient was noted to have a right periorbital hematoma due to a recent fall with a reported was 1-2 weeks prior. Discussed with the patient has ongoing alcoholism he reported that he had been sober for approximately 10 months recently began using again due to her recent breakup. He reported that he would was going to get checked into alcohol treatment facility such as [facility] and that he was quick to call them to check for availability. Recheck of his serum alcohol level was normal and the patient subsequently left AMA prior to being discharged. This discharge process took approximately 30 minutes. Focused exam Neurologic : Cranial nerves II-12 grossly intact, no signs of acute alcohol withdrawal at this time Patient Condition at Discharge: Stable Plan - Discharge Summary New Discharge Prescriptions: No Action No Known Home Medications Discharge Medication List No Known Home Medications 11/23/18 [History] Follow up Appointment(s)/Referral(s): None,Stated [Primary Care Provider] - 1-2 days Discharge Disposition: Left Against Medical Advice
== END 2018-11-24 13:03 | disposition left against medical advice (07) | DRG 894 ==
LOC: EC 16:00 → 4MS4W 19:23
PROVIDERS: ADMIT Internal Medicine; ATTEND Internal Medicine
DX: F10.121 Alcohol abuse with intoxication delirium (principal); E87.0 Hyperosmolality and hypernatremia; S05.11XA Contusion of eyeball and orbital tissues, right eye, initial encounter; Z59.0 Homelessness; R74.8 Abnormal levels of other serum enzymes; D69.6 Thrombocytopenia, unspecified; K70.10 Alcoholic hepatitis without ascites; F32.9 Major depressive disorder, single episode, unspecified; F41.9 Anxiety disorder, unspecified; E86.0 Dehydration; Z91.02 Food additives allergy status; Z91.018 Allergy to other foods; Z82.61 Family history of arthritis; Z84.89 Family history of other specified conditions
CPT/HCPCS: 36415; 70450; 80053; 80306; 80320; 81003; 85025; 93005; 96361; 96372; 96374; 99285

== ENCOUNTER 2018-12-03 12:15 | Inpatient (IN) | payer OTHER ==
[2018-12-03] MEDS ORDERED: SODIUM CHLORIDE 0.9% 1,000 ML IV ONE ×2 (12:55→13:57)
[2018-12-03] MEDS ORDERED: LORazepam 2 MG/ML INJ IV STA (12:56)
[2018-12-03] MEDS ORDERED: SODIUM CHLORIDE 0.9% 1,000 ML with MVI, ADULT NO.4 WITH VIT K 10 ML, THIAMINE 100 MG, F... IV ONE ×4 (13:00)
[2018-12-03 13:14] LABS: Anisocytosis Slight; Basophils % (A) 0 %; Eosinophils # (A) 0.1 k/uL (0-0.7); Eosinophils % (A) 1 %; HCT 46.2 % (39.0-53.0); HGB 15.1 gm/dL (13.0-17.5); Lymphocytes # (A) 0.6 k/uL (1.0-4.8); Lymphocytes % (A) 7 %; MCH 28.1 pg (25.0-35.0); MCHC 32.6 g/dL (31.0-37.0); MCV 86.2 fL (80.0-100.0); Monocytes # (A) 0.4 k/uL (0-1.0); Monocytes % (A) 5 %; Neutrophils # (A) 7.7 k/uL (1.3-7.7); Neutrophils % (A) 86 %; Platelet Count 151 k/uL (150-450); RBC 5.36 m/uL (4.30-5.90); RDW 17.3 % (11.5-15.5); WBC 8.9 k/uL (3.8-10.6)
[2018-12-03 13:26] LABS: ALT 256 U/L (21-72); AST 452 U/L (17-59); African American GFR (CKD) >90 (>60 ml/min/1.73 sqM); Albumin 4.7 g/dL (3.5-5.0); Alkaline Phosphatase 121 U/L (38-126); Anion Gap 16 mmol/L; Blood Urea Nitrogen 8 mg/dL (9-20); Calcium 9.1 mg/dL (8.4-10.2); Carbon Dioxide 31 mmol/L (22-30); Chloride 95 mmol/L (98-107); Glucose 86 mg/dL (74-99); Magnesium 2.2 mg/dL (1.6-2.3); Potassium 4.8 mmol/L (3.5-5.1); Sodium 142 mmol/L (137-145); Total Bilirubin 0.6 mg/dL (0.2-1.3); Total Protein 7.6 g/dL (6.3-8.2)
[2018-12-03 13:41] LABS: Alcohol 340 mg/dL
--- NOTE | 2018-12-03 13:56 | ED ---
General Adult HPI - General Chief complaint: Alcohol Stated complaint: Detox Time Seen by Provider: 12/03/18 12:20 Source: patient, RN notes reviewed Mode of arrival: EMS Limitations: no limitations - History of Present Illness Initial comments: This is a 38 her old male who presents emergency Department because of alcohol intoxication. Patient was found incapacitated and brought in because he could not ambulate and was not safe to be alone. Patient states he hasn't drank since 8:00 this morning any believes she's withdrawing. Patient denies any physical complaints today. Patient denies any fall or injury. Patient denies any chest pain difficulty breathing or shortness of breath per patient denies abdominal pain patient denies nausea vomiting diarrhea. - Related Data Home Medications Medication Instructions Recorded Confirmed No Known Home Medications 11/23/18 12/03/18 Allergies Allergy/AdvReac Type Severity Reaction Status Date / Time chocolate flavor Allergy Rash/Hives Verified 12/03/18 12:55 coconut oil Allergy Rash/Hives Verified 12/03/18 12:55 pineapple Allergy Rash/Hives Verified 12/03/18 12:55 Review of Systems ROS Statement: Those systems with pertinent positive or pertinent negative responses have been documented in the HPI. ROS Other: All systems not noted in ROS Statement are negative. Past Medical History Past Medical History: Pneumonia Additional Past Medical History / Comment(s): V[facility]IGO IN PAST,ETOH ABUSE, WITHDRAWLS/DT"S. SEIZURE x2 D/T ETOH , chronic alcoholic thrombocytopenia History of Any Multi-Drug Resistant Organisms: None Reported Past Surgical History: No Surgical Hx Reported Additional Past Surgical History / Comment(s): RT WRIST SX Past Anesthesia/Blood Transfusion Reactions: No Reported Reaction Additional Past Anesthesia/Blood Transfusion Reaction / Comment(s): CLAUSTERPHOBIA Past Psychological History: Anxiety, Depression Smoking Status: Never smoker Past Alcohol Use History: Daily Past Drug Use History: None Reported - Past Family History Mother Family Medical History: Fibromyalgia, Rheumatoid Arthritis (RA) Father Family Medical History: Osteoarthritis (OA) Additional Family Medical History / Comment(s): BACK PROBLEMS General Exam - General Exam Comments Initial Comments: GENERAL: Patient is well-developed and well-nourished. Patient is nontoxic and well-hydrated and is in no acute distress. Patient appears heavily intoxicated ENT: Neck is soft and supple. No significant lymphadenopathy is noted. Oropharynx is clear. Moist mucous membranes. Neck has full range of motion without eliciting any pain. EYES: The sclera were anicteric and conjunctiva were pink and moist. Extraocular movements were intact and pupils were equal round and reactive to light. Eyelids were unremarkable. PULMONARY: Unlabored respirations. Good breath sounds bilaterally. No audible rales rhonchi or wheezing was noted. CARDIOVASCULAR: There is a regular rate and rhythm without any murmurs gallops or rubs. ABDOMEN: Soft and nontender with normal bowel sounds. SKIN: Skin is clear with no lesions or rashes and otherwise unremarkable. NEUROLOGIC: Patient is alert and oriented x3. Cranial nerves II through XII are grossly intact. Motor and sensory are also intact. Normal speech, volume and content. Symmetrical smile. MUSCULOSKELETAL: Normal extremities with adequate strength and full range of motion. LYMPHATICS: No significant lymphadenopathy is noted PSYCHIATRIC: Normal psychiatric evaluation. Limitations: no limitations Course Vital Signs 12/03/18 12:20 Temperature 98.1 F Pulse Rate 90 Respiratory 18 Rate Blood Pressure 143/71 O2 Sat by Pulse 98 Oximetry Medical Decision Making - Medical Decision Making I spoke with Dr. aj he agreed to admit the patient admitted the patient wrote admitting orders. - Lab Data Result diagrams: 12/03/18 13:00 12/03/18 13:00 Lab Results 12/03/18 12/03/18 Range/Units 13:00 13:00 WBC 8.9 (3.8-10.6) k/uL RBC 5.36 (4.30-5.90) m/uL Hgb 15.1 (13.0-17.5) gm/dL Hct 46.2 (39.0-53.0) % MCV 86.2 (80.0-100.0) fL MCH 28.1 (25.0-35.0) pg MCHC 32.6 (31.0-37.0) g/dL RDW 17.3 H (11.5-15.5) % Plt Count 151 (150-450) k/uL Neutrophils % 86 % Lymphocytes % 7 % Monocytes % 5 % Eosinophils % 1 % Basophils % 0 % Neutrophils # 7.7 (1.3-7.7) k/uL Lymphocytes # 0.6 L (1.0-4.8) k/uL Monocytes # 0.4 (0-1.0) k/uL Eosinophils # 0.1 (0-0.7) k/uL Basophils # 0.0 (0-0.2) k/uL Anisocytosis Slight Sodium 142 (137-145) mmol/L Potassium 4.8 (3.5-5.1) mmol/L Chloride 95 L (98-107) mmol/L Carbon Dioxide 31 H (22-30) mmol/L Anion Gap 16 mmol/L BUN 8 L (9-20) mg/dL Creatinine 0.54 L (0.66-1.25) mg/dL Est GFR (CKD-EPI)AfAm >90 (>60 ml/min/1.73 sqM) Est GFR (CKD-EPI)NonAf >90 (>60 ml/min/1.73 sqM) Glucose 86 (74-99) mg/dL Calcium 9.1 (8.4-10.2) mg/dL Magnesium 2.2 (1.6-2.3) mg/dL Total Bilirubin 0.6 (0.2-1.3) mg/dL AST 452 H (17-59) U/L ALT 256 H (21-72) U/L Alkaline Phosphatase 121 (38-126) U/L Total Protein 7.6 (6.3-8.2) g/dL Albumin 4.7 (3.5-5.0) g/dL Serum Alcohol 340 H* mg/dL Disposition Clinical Impression: Alcoholic intoxication Disposition: ADMITTED IP TO THIS HOSP Referrals: None,Stated [Primary Care Provider] - 1-2 days Time of Disposition: 13:56
[2018-12-03] MEDS ORDERED: THIAMINE 100 MG/ML 2 ML VIAL IM STA (13:57)
[2018-12-03] MEDS ORDERED: LORazepam 2 MG/ML INJ IV PRN (13:57)
[2018-12-03] MEDS: LORazepam 2 MG/ML INJ IV PRN ×3 (14:50→20:16)
[2018-12-03] MEDS: THIAMINE 100 MG TAB PO SCH ×2 (16:35→16:36)
--- NOTE | 2018-12-03 17:46 | P.HPIM ---
History of Present Illness 38-year-old male came in was department with alcohol intoxication patient is willing to quit alcohol as per the nursing staff called I'm unable to get much of the history from the patient as patient is drowsy and just received Ativan. He does have elevated liver enzymes consistent with alcoholic hepatitis. Patient is admitted with Ativan [facility] protocol. Review of Systems REVIEW OF SYSTEMS: Unable to obtain due to his clinical condition Past Medical History Past Medical History: Pneumonia Additional Past Medical History / Comment(s): VERTIGO IN PAST,ETOH ABUSE, WITHDRAWLS/DT"S. SEIZURE x2 D/T ETOH , chronic alcoholic thrombocytopenia History of Any Multi-Drug Resistant Organisms: None Reported Past Surgical History: Orthopedic Surgery Additional Past Surgical History / Comment(s): RT WRIST SX Past Anesthesia/Blood Transfusion Reactions: No Reported Reaction Additional Past Anesthesia/Blood Transfusion Reaction / Comment(s): CLAUSTERPHOBIA Past Psychological History: Anxiety, Depression Additional Psychological History / Comment(s): pt stated he is homeless. has been to rehab for etoh in past several times and wishes to go back.. 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 Smoking Status: Never smoker Past Alcohol Use History: Daily Additional Past Alcohol Use History / Comment(s): pt admits to drinking at least. 14 tall(24 ounce) cans of beer per day Past Drug Use History: None Reported Additional Drug Use History / Comment(s): previous went to [facility] for alcohol abuse tx - Past Family History Mother Family Medical History: Fibromyalgia, Rheumatoid Arthritis (RA) Father Family Medical History: Osteoarthritis (OA) Additional Family Medical History / Comment(s): BACK PROBLEMS Medications and Allergies Home Medications Medication Instructions Recorded Confirmed Type No Known Home Medications 11/23/18 12/03/18 History Allergies Allergy/AdvReac Type Severity Reaction Status Date / Time chocolate flavor Allergy Rash/Hives Verified 12/03/18 12:55 coconut oil Allergy Rash/Hives Verified 12/03/18 12:55 pineapple Allergy Rash/Hives Verified 12/03/18 12:55 Physical Exam Vitals: Vital Signs Temp Pulse Pulse Resp BP BP Pulse Ox 12/03/18 15:15 98.2 F 115 H 20 149/82 98 12/03/18 15:08 97.9 F 83 18 146/79 97 12/03/18 12:20 98.1 F 90 18 143/71 98 Intake and Output 12/03/18 12/03/18 12/03/18 06:59 14:59 22:59 Other: Weight 72.575 kg PHYSICAL EXAMINATION: GENERAL: The sleepy and snoring just received Ativan, not in any acute distress. Well developed, well nourished. HEENT: Pupils are round and equally reacting to light. EOMI. No scleral icterus. No conjunctival pallor. Normocephalic, atraumatic. No pharyngeal erythema. No thyromegaly. CARDIOVASCULAR: S1 and S2 present. No murmurs, rubs, or gallops. PULMONARY: Chest is clear to auscultation, no wheezing or crackles. ABDOMEN: Soft, nontender, nondistended, normoactive bowel sounds. No palpable organomegaly. MUSCULOSKELETAL: No joint swelling or deformity. EXTREMITIES: No cyanosis, clubbing, or pedal edema. NEUROLOGICAL: Unable to assess SKIN: No rashes. Results CBC & Chem 7: 12/03/18 13:00 12/03/18 13:00 Labs: Abnormal Lab Results - Last 24 Hours (Table) 12/03/18 12/03/18 Range/Units 13: 13:00 RDW 17.3 H (11.5-15.5) % Lymphocytes # 0.6 L (1.0-4.8) k/uL Chloride 95 L (98-107) mmol/L Carbon Dioxide 31 H (22-30) mmol/L BUN 8 L (9-20) mg/dL Creatinine 0.54 L (0.66-1.25) mg/dL AST 452 H (17-59) U/L ALT 256 H (21-72) U/L Serum Alcohol 340 H* mg/dL Assessment and Plan Plan: -Acute alcohol intoxication -Expected alcohol withdrawal: Patient will be on Ativan 0 be a protocol -Alcoholic hepatitis: Expected to improve with cessation of alcohol patient will continued on IV fluids thiamine multivitamin supplementation. -Sinus tachycardia secondary to alcoholism possible withdrawals. For now we will stay with Ativan if needed patient will be started on beta rox or clonidine -Depression not on any medications antidepressants will not be effective with alcohol. She will need pharmacologic GA and due to prophylaxis
[2018-12-03] MEDS: PANTOPRAZOLE 40 MG/10 ML VIAL IVP SCH (20:16)
[2018-12-04] MEDS: LORazepam 2 MG/ML INJ IV PRN ×7 (00:51→20:11)
[2018-12-04] MEDS: HEPARIN SODIUM,PORCINE 5,000 UNIT/ML 1 ML VIAL SQ SCH ×3 (00:51→16:00)
[2018-12-04] MEDS: PANTOPRAZOLE 40 MG/10 ML VIAL IVP SCH (07:27)
[2018-12-04] MEDS: THIAMINE 100 MG TAB PO SCH ×2 (07:28→16:27)
[2018-12-04] MEDS: PANTOPRAZOLE 40 MG TABLET PO SCH ×2 (07:51→16:30)
[2018-12-04 09:47] LABS: ALT 164 U/L (21-72); AST 231 U/L (17-59); African American GFR (CKD) >90 (>60 ml/min/1.73 sqM); Albumin 3.4 g/dL (3.5-5.0); Alkaline Phosphatase 72 U/L (38-126); Anion Gap 10 mmol/L; Blood Urea Nitrogen 8 mg/dL (9-20); Calcium 8.4 mg/dL (8.4-10.2); Carbon Dioxide 26 mmol/L (22-30); Chloride 99 mmol/L (98-107); Glucose 101 mg/dL (74-99); Potassium 3.8 mmol/L (3.5-5.1); Sodium 135 mmol/L (137-145); Total Bilirubin 0.8 mg/dL (0.2-1.3); Total Protein 5.7 g/dL (6.3-8.2)
--- NOTE | 2018-12-04 17:08 | P.PN ---
Subjective Patient is still having alcohol withdrawals with high CIWA score. Review of systems: Unable to obtain as patient is sleepy from Ativan All inpatient medications were reviewed and appropriate changes in these medications as dictated in the interval history and assessment and plan. Objective - Vital Signs Vital signs: Vital Signs Temp 99.4 F 12/04/18 14:22 Pulse 101 H 12/04/18 14:22 Resp 16 12/04/18 14:29 BP 163/74 12/04/18 14:22 Pulse Ox 100 12/04/18 14:22 Intake & Output 12/03/18 12/04/18 12/04/18 18:59 06:59 18:59 Intake Total 800 Output Total 650 1900 Balance 150 -1900 Weight 72.575 kg Intake: Intake, IV Titration 800 Amount Sodium Chloride 0.9% 1, 800 000 ml @ 100 mls/hr IV . Q10H ONE Rx#:[id number] Output: Urine 650 1900 Other: Voiding Method Urinal Urinal # Voids 1 - Exam PHYSICAL EXAMINATION: GENERAL: The sleepy and snoring just received Ativan, not in any acute distress. Well developed, well nourished. HEENT: Pupils are round and equally reacting to light. EOMI. No scleral icterus. No conjunctival pallor. Normocephalic, atraumatic. No pharyngeal erythema. No thyromegaly. CARDIOVASCULAR: S1 and S2 present. No murmurs, rubs, or gallops. PULMONARY: Chest is clear to auscultation, no wheezing or crackles. ABDOMEN: Soft, nontender, nondistended, normoactive bowel sounds. No palpable organomegaly. MUSCULOSKELETAL: No joint swelling or deformity. EXTREMITIES: No cyanosis, clubbing, or pedal edema. NEUROLOGICAL: Unable to assess SKIN: No rashes. - Labs CBC & Chem 7: 12/03/18 13:00 12/04/18 08:53 Labs: Abnormal Lab Results - Last 24 Hours (Table) 12/04/18 Range/Units 08:53 Sodium 135 L (137-145) mmol/L BUN 8 L (9-20) mg/dL Creatinine 0.59 L (0.66-1.25) mg/dL Glucose 101 H (74-99) mg/dL AST 231 H (17-59) U/L ALT 164 H (21-72) U/L Total Protein 5.7 L (6.3-8.2) g/dL Albumin 3.4 L (3.5-5.0) g/dL Assessment and Plan Plan: -Acute alcohol intoxication - alcohol withdrawal: Patient will be continued on Ativan [facility] protocol -Alcoholic hepatitis: Expected to improve with cessation of alcohol patient will continued on IV fluids thiamine multivitamin supplementation. -Sinus tachycardia secondary to alcoholism possible withdrawals. For now we will stay with Ativan if needed patient will be started on beta rox or clonidine -Depression not on any medications antidepressants will not be effective with alcohol. She will need pharmacologic GA and due to prophylaxis
[2018-12-05] MEDS: LORazepam 2 MG/ML INJ IV PRN ×9 (00:29→23:50)
[2018-12-05] MEDS: HEPARIN SODIUM,PORCINE 5,000 UNIT/ML 1 ML VIAL SQ SCH ×4 (00:29→23:24)
[2018-12-05] MEDS: THIAMINE 100 MG TAB PO SCH ×2 (07:52→16:17)
[2018-12-05] MEDS: PANTOPRAZOLE 40 MG TABLET PO SCH ×2 (07:52→16:17)
--- NOTE | 2018-12-05 12:36 | P.PN ---
Subjective Patient is still having alcohol withdrawals with high CIWA score. 01/04/2019 Patient is still having significant withdrawals. More awake today. Constitutional: Denied any fatigue denied any fever. Cardio vascular: denied any chest pain, palpitations Gastrointestinal denied any nausea vomiting Pulmonary: Denied any shortness of breath cough Neurologic denied any new focal deficits All inpatient medications were reviewed and appropriate changes in these medications as dictated in the interval history and assessment and plan. Objective - Vital Signs Vital signs: Vital Signs Temp 98.0 F 12/05/18 05:22 Pulse 62 12/05/18 05:22 Resp 12 12/05/18 05:22 BP 129/77 12/05/18 05:22 Pulse Ox 98 12/05/18 05:22 Intake & Output 12/04/18 12/05/18 12/05/18 18:59 06:59 18:59 Output Total 1900 800 Balance -1900 -800 Output: Urine 1900 800 Other: Voiding Method Urinal Urinal Urinal # Voids 1 1 2 # Bowel Movements 0 - Exam PHYSICAL EXAMINATION: GENERAL: The sleepy and snoring just received Ativan, not in any acute distress. Well developed, well nourished. HEENT: Pupils are round and equally reacting to light. EOMI. No scleral icterus. No conjunctival pallor. Normocephalic, atraumatic. No pharyngeal erythema. No thyromegaly. CARDIOVASCULAR: S1 and S2 present. No murmurs, rubs, or gallops. PULMONARY: Chest is clear to auscultation, no wheezing or crackles. ABDOMEN: Soft, nontender, nondistended, normoactive bowel sounds. No palpable organomegaly. MUSCULOSKELETAL: No joint swelling or deformity. EXTREMITIES: No cyanosis, clubbing, or pedal edema. NEUROLOGICAL: Unable to assess SKIN: No rashes. - Labs CBC & Chem 7: 12/03/18 13:00 12/04/18 08:53 Assessment and Plan Plan: -Acute alcohol intoxication - alcohol withdrawal: Patient will be continued on Ativan [facility] protocol -Alcoholic hepatitis: Expected to improve with cessation of alcohol patient will continued on IV fluids thiamine multivitamin supplementation. -Sinus tachycardia secondary to alcoholism possible withdrawals. For now we will stay with Ativan if needed patient will be started on beta rox or clonidine -Depression not on any medications antidepressants will not be effective with alcohol. She will need pharmacologic GA and due to prophylaxis
[2018-12-06] MEDS: LORazepam 2 MG/ML INJ IV PRN ×5 (05:18→23:25)
[2018-12-06] MEDS: HEPARIN SODIUM,PORCINE 5,000 UNIT/ML 1 ML VIAL SQ SCH ×3 (06:56→23:25)
[2018-12-06] MEDS: THIAMINE 100 MG TAB PO SCH ×2 (06:56→15:06)
[2018-12-06] MEDS: PANTOPRAZOLE 40 MG TABLET PO SCH ×2 (06:56→15:06)
--- NOTE | 2018-12-06 15:12 | P.PN ---
Subjective Patient is still having alcohol withdrawals with high CIWA score. 01/04/2019 Patient is still having significant withdrawals. More awake today. 12/06/2018 Patient withdrawals improved but still has significant withdrawals patient states he threw up in the bathroom today but this was not evidenced by anyone. Constitutional: Denied any fatigue denied any fever. Cardio vascular: denied any chest pain, palpitations Gastrointestinal as mentioned in HPI Pulmonary: Denied any shortness of breath cough Neurologic denied any new focal deficits All inpatient medications were reviewed and appropriate changes in these medications as dictated in the interval history and assessment and plan. Objective - Vital Signs Vital signs: Vital Signs Temp 98.6 F 12/06/18 13:38 Pulse 85 12/06/18 13:38 Resp 16 12/06/18 13:38 BP 131/73 12/06/18 13:38 Pulse Ox 97 12/06/18 13:38 Intake & Output 12/05/18 12/06/18 12/06/18 18:59 06:59 18:59 Output Total 400 400 Balance -400 -400 Output: Urine 400 400 Other: Voiding Method Urinal Urinal # Voids 2 1 3 - Exam PHYSICAL EXAMINATION: GENERAL awake alert oriented 3, not in any acute distress. Well developed, well nourished. HEENT: Pupils are round and equally reacting to light. EOMI. No scleral icterus. No conjunctival pallor. Normocephalic, atraumatic. No pharyngeal erythema. No thyromegaly. CARDIOVASCULAR: S1 and S2 present. No murmurs, rubs, or gallops. PULMONARY: Chest is clear to auscultation, no wheezing or crackles. ABDOMEN: Soft, nontender, nondistended, normoactive bowel sounds. No palpable organomegaly. MUSCULOSKELETAL: No joint swelling or deformity. EXTREMITIES: No cyanosis, clubbing, or pedal edema. NEUROLOGICAL: Unable to assess SKIN: No rashes. - Labs CBC & Chem 7: 12/03/18 13:00 12/04/18 08:53 Assessment and Plan Plan: -Acute alcohol intoxication - alcohol withdrawal: Patient will be continued on Ativan CIWA protocol -Alcoholic hepatitis: Expected to improve with cessation of alcohol patient will continued on IV fluids thiamine multivitamin supplementation. -Sinus tachycardia resolved -Depression not on any medications antidepressants will not be effective with alcohol. She will need pharmacologic GI and DVT prophylaxis
[2018-12-07] MEDS: LORazepam 2 MG/ML INJ IV PRN ×2 (04:11→07:47)
[2018-12-07 05:43] VITALS: BP 127/83; PULSE 87; RESP 16; TEMP 97.7
[2018-12-07] MEDS: PANTOPRAZOLE 40 MG TABLET PO SCH (07:38)
[2018-12-07] MEDS: THIAMINE 100 MG TAB PO SCH (07:38)
[2018-12-07] MEDS: HEPARIN SODIUM,PORCINE 5,000 UNIT/ML 1 ML VIAL SQ SCH (07:38)
--- NOTE | 2018-12-07 14:55 | P.DS ---
Providers Date of admission: 12/05/18 14:40 Attending physician: Jose Wang MD Primary care physician: Stated None Hospital Course: Patient is still having alcohol withdrawals with high CIWA score. 01/04/2019 Patient is still having significant withdrawals. More awake today. 12/06/2018 Patient withdrawals improved but still has significant withdrawals patient states he threw up in the bathroom today but this was not evidenced by anyone. 12/07/2018 Patient withdrawals improved and patient is agreeable to follow up with [facility]. PHYSICAL EXAMINATION: GENERAL: The patient is alert and oriented x3, not in any acute distress. Well developed, well nourished. HEENT: Pupils are round and equally reacting to light. EOMI. No scleral icterus. No conjunctival pallor. Normocephalic, atraumatic. No pharyngeal erythema. No thyromegaly. CARDIOVASCULAR: S1 and S2 present. No murmurs, rubs, or gallops. PULMONARY: Chest is clear to auscultation, no wheezing or crackles. ABDOMEN: Soft, nontender, nondistended, normoactive bowel sounds. No palpable organomegaly. MUSCULOSKELETAL: No joint swelling or deformity. EXTREMITIES: No cyanosis, clubbing, or pedal edema. NEUROLOGICAL: Gross neurological examination did not reveal any focal deficits. SKIN: No rashes. Assessment and Plan Plan: -Acute alcohol intoxication - alcohol withdrawal: Patient will be continued on Ativan CIWA protocol -Alcoholic hepatitis: Expected to improve with cessation of alcohol patient will continued on IV fluids thiamine multivitamin supplementation. -Sinus tachycardia secondary to all call withdrawal improved now -Depression not on any medications antidepressants will not be effective with alcohol. Plan - Discharge Summary Discharge Rx Participant: No New Discharge Prescriptions: New Omeprazole [PriLOSEC] 40 mg PO AC-BRKFST #14 capsule. Thiamine [Vitamin B-1] 100 mg PO DAILY #30 tablet Discharge Medication List Omeprazole [PriLOSEC] 40 mg PO AC-BRKFST #14 capsule. 12/07/18 [Rx] Thiamine [Vitamin B-1] 100 mg PO DAILY #30 tablet 12/07/18 [Rx] Follow up Appointment(s)/Referral(s): None,Stated [Primary Care Provider] - 1-2 days Patient Instructions/Handouts: Depression (DC), Abuse of Alcohol (DC), Alcohol Withdrawal (DC) Activity/Diet/Wound Care/Special Instructions: [facility] 6-19 at 1030 for check in. Regular diet. Activity as tolerated. No drinking, references provided. Discharge Disposition: HOME SELF-CARE
== END 2018-12-07 11:26 | disposition home or self-care (01) | DRG 897 ==
LOC: EC 12:15 → 4MS4W 13:57 → OBSVTOIN 12-05 14:40
PROVIDERS: ADMIT Internal Medicine; ATTEND Internal Medicine
DX: F10.229 Alcohol dependence with intoxication, unspecified (principal); F40.240 Claustrophobia; F10.239 Alcohol dependence with withdrawal, unspecified; Y90.8 Blood alcohol level of 240 mg/100 ml or more; F41.9 Anxiety disorder, unspecified; F32.9 Major depressive disorder, single episode, unspecified; K70.10 Alcoholic hepatitis without ascites; Z91.018 Allergy to other foods; Z87.01 Personal history of pneumonia (recurrent); Z59.0 Homelessness; Z71.41 Alcohol abuse counseling and surveillance of alcoholic
CPT/HCPCS: 36415; 80053; 80320; 83735; 85025; 96361; 96365; 96372; 96375; 96376; 99285

== ENCOUNTER 2018-12-29 19:48 | Observation (INO) | payer OTHER ==
[2018-12-29] MEDS ORDERED: SODIUM CHLORIDE 0.9% 1,000 ML IV STA (20:06)
--- NOTE | 2018-12-29 20:09 | ED ---
General Adult HPI - General Chief complaint: Alcohol Stated complaint: Sun poison Time Seen by Provider: 12/29/18 19:56 Source: patient Mode of arrival: ambulatory Limitations: no limitations - History of Present Illness Initial comments: Dictation was produced using [employer] dictation software. please excuse any grammatical, word or spelling errors. Chief Complaint: 38-year-old male presents with concerns of EtOH withdrawal. History of Present Illness: Patient 38-year-old male he reports that he is a daily alcoholic. Patient states he drinks heavy amounts daily. He does not have a specific amount but drinks as much as he can get his hands on. He equates his daily alcohol ingestion to approximately one case of beer a day. Patient has had severe alcohol withdrawals in the past including seizures. Patient also has secondary complaint of sunburn. 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 Patient claims of mild pain to his skin. The ROS documented in this emergency department record has been reviewed and confirmed by me. Those systems with pertinent positive or negative responses have been documented in the HPI. All other systems are other negative and/or noncontributory. PHYSICAL EXAM: General Impression: Alert and oriented x3, not in acute distress HEENT: Normocephalic atraumatic, extra-ocular movements intact, pupils equal and reactive to light bilaterally, mucous membranes moist. Cardiovascular: Heart regular rate and rhythm, S1&S2 audible, no murmurs, rubs or gallops Chest: Lungs clear to auscultation bilaterally, no rhonchi, no wheeze, no rales Abdomen: Bowel sounds present, abdomen soft, non-tender, non-distended, no organomegaly Musculoskeletal: Pulses present and equal in all extremities, no peripheral edema Motor: no focal deficits noted Neurological: CN II-XII grossly intact, no focal motor or sensory deficits noted Skin: Swollen erythematous skin to the face, feet. This pattern of redness is consistent with his shirt line. Psych: Normal affect and mood ED course: 38-year-old male presents with concerns of EtOH withdrawal and s unburn. Vital signs upon arrival shows heart rate 113, rest of vital signs within acceptable limits. Patient does not appear to be withdrawing currently. Last alcohol ingestion was half a beer at 1 PM. Laboratory evaluation obtained. Patient's CBC is grossly unremarkable. He does have some thrombocytopenia likely from alcohol abuse. Metabolic panel is negative. Patient does have evidence of alcoholic hepatitis. Patient's serum alcohol 393. Given patient's degree of serum alcohol and his clinical presentation is unlikely to be alcoholic withdrawals. Patient be admitted for possible precipitation of EtOH withdrawals. Discussed patient case Dr. Hunter who is acceptable to patient's care. - Related Data Home Medications Medication Instructions Recorded Confirmed No Known Home Medications 12/29/18 12/29/18 Allergies Allergy/AdvReac Type Severity Reaction Status Date / Time chocolate flavor Allergy Rash/Hives Verified 12/29/18 20:05 coconut oil Allergy Rash/Hives Verified 12/29/18 20:05 pineapple Allergy Rash/Hives Verified 12/29/18 20:05 Review of Systems ROS Statement: Those systems with pertinent positive or pertinent negative responses have been documented in the HPI. ROS Other: All systems not noted in ROS Statement are negative. Past Medical History Past Medical History: Pneumonia Additional Past Medical History / Comment(s): VERTIGO IN PAST,ETOH ABUSE, WITHDRAWLS/DT"S. SEIZURE x2 D/T ETOH , chronic alcoholic thrombocytopenia History of Any Multi-Drug Resistant Organisms: None Reported Past Surgical History: Orthopedic Surgery Additional Past Surgical History / Comment(s): RT WRIST SX Past Anesthesia/Blood Transfusion Reactions: No Reported Reaction Additional Past Anesthesia/Blood Transfusion Reaction / Comment(s): CLAUSTERPHOBIA Past Psychological History: Anxiety, Depression Smoking Status: Never smoker Past Alcohol Use History: Daily Past Drug Use History: None Reported - Past Family History Mother Family Medical History: Fibromyalgia, Rheumatoid Arthritis (RA) Father Family Medical History: Osteoarthritis (OA) Additional Family Medical History / Comment(s): BACK PROBLEMS General Exam Limitations: no limitations Course Vital Signs 12/29/18 19:51 Temperature 99.2 F Pulse Rate 113 H Respiratory 18 Rate Blood Pressure 137/83 O2 Sat by Pulse 100 Oximetry Medical Decision Making - Lab Data Result diagrams: 12/29/18 20:10 12/29/18 20:10 Lab Results 12/29/18 12/29/18 Range/Units 20:10 20:10 WBC 3.6 L (3.8-10.6) k/uL RBC 5.11 (4.30-5.90) m/uL Hgb 14.8 (13.0-17.5) gm/dL Hct 45.3 (39.0-53.0) % MCV 88.8 (80.0-100.0) fL MCH 29.0 (25.0-35.0) pg MCHC 32.7 (31.0-37.0) g/dL RDW 15.6 H (11.5-15.5) % Plt Count 72 L D (150-450) k/uL Neutrophils % (Manual) 59 % Lymphocytes % (Manual) 28 % Monocytes % (Manual) 12 % Basophils % (Manual) 1 % Neutrophils # (Manual) 2.12 (1.3-7.7) k/uL Lymphocytes # (Manual) 1.01 (1.0-4.8) k/uL Monocytes # (Manual) 0.43 (0-1.0) k/uL Basophils # (Manual) 0.04 (0-0.2) k/uL Nucleated RBCs 0 (0-0) /100 WBC Manual Slide Review Performed Reactive Lymphocytes Present Sodium 139 (137-145) mmol/L Potassium 4.2 (3.5-5.1) mmol/L Chloride 96 L (98-107) mmol/L Carbon Dioxide 30 (22-30) mmol/L Anion Gap 13 mmol/L BUN 6 L (9-20) mg/dL Creatinine 0.61 L (0.66-1.25) mg/dL Est GFR (CKD-EPI)AfAm >90 (>60 ml/min/1.73 sqM) Est GFR (CKD-EPI)NonAf >90 (>60 ml/min/1.73 sqM) Glucose 102 H (74-99) mg/dL Calcium 8.8 (8.4-10.2) mg/dL Magnesium 2.1 (1.6-2.3) mg/dL Total Bilirubin 0.9 (0.2-1.3) mg/dL AST 236 H (17-59) U/L ALT 220 H (21-72) U/L Alkaline Phosphatase 107 (38-126) U/L Total Protein 7.2 (6.3-8.2) g/dL Albumin 4.5 (3.5-5.0) g/dL Serum Alcohol 393 H* mg/dL Disposition Clinical Impression: Alcoholic intoxication Disposition: ADMITTED IP TO THIS HOSP Condition: Fair Referrals: None,Stated [Primary Care Provider] - 1-2 days Decision Time: 21:15
[2018-12-29 20:46] LABS: HCT 45.3 % (39.0-53.0); HGB 14.8 gm/dL (13.0-17.5); MCHC 32.7 g/dL (31.0-37.0); MCV 88.8 fL (80.0-100.0); Mean Platelet Volume 6.9; RBC 5.11 m/uL (4.30-5.90); RDW 15.6 % (11.5-15.5); WBC 3.6 k/uL (3.8-10.6)
[2018-12-29 20:52] LABS: ALT 220 U/L (21-72); AST 236 U/L (17-59); African American GFR (CKD) >90 (>60 ml/min/1.73 sqM); Albumin 4.5 g/dL (3.5-5.0); Alkaline Phosphatase 107 U/L (38-126); Anion Gap 13 mmol/L; Blood Urea Nitrogen 6 mg/dL (9-20); Calcium 8.8 mg/dL (8.4-10.2); Carbon Dioxide 30 mmol/L (22-30); Chloride 96 mmol/L (98-107); Glucose 102 mg/dL (74-99); Magnesium 2.1 mg/dL (1.6-2.3); Potassium 4.2 mmol/L (3.5-5.1); Sodium 139 mmol/L (137-145); Total Bilirubin 0.9 mg/dL (0.2-1.3); Total Protein 7.2 g/dL (6.3-8.2)
[2018-12-29 21:03] LABS: Platelet Count 72 k/uL (150-450)
[2018-12-29 21:04] LABS: Alcohol 393 mg/dL
[2018-12-29 21:06] LABS: Basophils # (M) 0.04 k/uL (0-0.2); Lymphocytes # (M) 1.01 k/uL (1.0-4.8); Monocytes # (M) 0.43 k/uL (0-1.0); Neutrophils # (M) 2.12 k/uL (1.3-7.7); Neutrophils % (M) 59 %; Nucleated Red Blood Cells 0 /100 WBC (0-0); Total Cells Counted 100
[2018-12-29 21:07] LABS: Reactive Lymphocytes Present
[2018-12-29] MEDS ORDERED: ACETAMINOPHEN TAB 325 MG TAB PO PRN (21:15)
[2018-12-29] MEDS ORDERED: ONDANSETRON 4 MG/2 ML VIAL IVP PRN (21:15)
[2018-12-29] MEDS ORDERED: NALOXONE 0.4 MG/ML 1 ML VIAL IV PRN (21:15)
[2018-12-29] MEDS ORDERED: THIAMINE 100 MG/ML 2 ML VIAL IM STA ×2 (21:16→22:55)
[2018-12-29] MEDS ORDERED: LORazepam 2 MG/ML INJ IV PRN ×2 (21:16)
[2018-12-29 23:40] VITALS: BMI 21.6
[2018-12-29] MEDS: THIAMINE 100 MG TAB PO SCH ×2 (23:44→23:58)
[2018-12-30] MEDS: LORazepam 2 MG/ML INJ IV PRN ×8 (00:13→23:56)
[2018-12-30] MEDS: SODIUM CHLORIDE 0.9% 1,000 ML IV SCH ×2 (00:13→20:08)
--- NOTE | 2018-12-30 12:54 | P.HPIM ---
History of Present Illness 38-year-old male drinks heavy amounts of alcohol a daily basis about a case of beer every day and a history of all call withdraws and seizures in the past and presently a and withdrawals in the scoring high-end CIWA score came in with compensative sunburn and willing to quit alcohol. Patient did promise to me last and that he'll go to alcohol rehabilitation program but never ended up doing that and she says that's because he doesn't have transportation and now is agreeable to go to subacute rehabitation. If patient is not willing to go to [facility] is no benefit in keeping him here in treating him withdrawals but patient is agreeable to go there directly from here because of which patient will be admitted and treated with IV fluids and Ativan thiamine multivitamin supplementation. Review of Systems REVIEW OF SYSTEMS: CONSTITUTIONAL: No fever, no malaise, no fatigue. HEENT: No recent visual problems or hearing problems. Denied any sore throat. CARDIOVASCULAR: No chest pain, orthopnea, PND, no palpitations, no syncope. PULMONARY: No shortness of breath, no cough, no hemoptysis. GASTROINTESTINAL: No diarrhea, no nausea, no vomiting, no abdominal pain. NEUROLOGICAL: No headaches, no weakness, no numbness. HEMATOLOGICAL: Denies any bleeding or petechiae. GENITOURINARY: Denies any burning micturition, frequency, or urgency. MUSCULOSKELETAL/RHEUMATOLOGICAL: Denies any joint pain, swelling, or any muscle pain. ENDOCRINE: Denies any polyuria or polydipsia. The rest of the 14-point review of systems is negative. Past Medical History Past Medical History: Hypertension, Pneumonia, Seizure Disorder Additional Past Medical History / Comment(s): VERTIGO IN PAST,ETOH ABUSE, WITHDRAWLS/DT"S. SEIZURE x2 D/T ETOH , chronic alcoholic thrombocytopenia History of Any Multi-Drug Resistant Organisms: None Reported Past Surgical History: Orthopedic Surgery Additional Past Surgical History / Comment(s): RT WRIST SX Past Anesthesia/Blood Transfusion Reactions: No Reported Reaction Additional Past Anesthesia/Blood Transfusion Reaction / Comment(s): CLAUSTERPHOBIA Past Psychological History: Anxiety, Depression Additional Psychological History / Comment(s): pt stated he is homeless. has been to rehab for etoh in past several times and wishes to go back.. 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 Smoking Status: Never smoker Past Alcohol Use History: Daily Additional Past Alcohol Use History / Comment(s): pt admits to drinking at least. 15-20 tall(24 ounce) cans of beer per day Past Drug Use History: None Reported Additional Drug Use History / Comment(s): previous went to [facility] for alcohol abuse tx - Past Family History Mother Family Medical History: Fibromyalgia, Rheumatoid Arthritis (RA) Father Family Medical History: Osteoarthritis (OA) Additional Family Medical History / Comment(s): BACK PROBLEMS Medications and Allergies Home Medications Medication Instructions Recorded Confirmed Type No Known Home Medications 12/29/18 12/29/18 History Allergies Allergy/AdvReac Type Severity Reaction Status Date / Time chocolate flavor Allergy Rash/Hives Verified 12/29/18 20:05 coconut oil Allergy Rash/Hives Verified 12/29/18 20:05 pineapple Allergy Rash/Hives Verified 12/29/18 20:05 Physical Exam Vitals: Vital Signs Temp Pulse Pulse Resp BP BP Pulse Ox 12/30/18 11:25 98.5 F 105 H 20 137/84 98 12/30/18 05:13 99.0 F 100 18 110/64 96 12/29/18 22:31 98.5 F 101 H 18 149/87 99 12/29/18 21:44 98.4 F 87 18 124/87 99 12/29/18 19:51 99.2 F 113 H 18 137/83 100 Intake and Output 12/29/18 12/30/18 12/30/18 22:59 06:59 14:59 Intake Total 590 990 Output Total 300 Balance 590 990 -300 Intake: Intake, IV Titration 160 Amount Sodium Chloride 0.9% 1, 160 000 ml @ 20 mls/hr IV . Q24H [facility] Rx#:[id number] Oral 590 830 Output: Urine 300 Other: Voiding Method Urinal Urinal # Voids 2 Weight 70.307 kg PHYSICAL EXAMINATION: GENERAL: The patient is alert and oriented x3, not in any acute distress. Thin built patient is shaking HEENT: Pupils are round and equally reacting to light. EOMI. No scleral icterus. No conjunctival pallor. Normocephalic, atraumatic. No pharyngeal erythema. No thyromegaly. CARDIOVASCULAR: S1 and S2 present. No murmurs, rubs, or gallops. PULMONARY: Chest is clear to auscultation, no wheezing or crackles. ABDOMEN: Soft, nontender, nondistended, normoactive bowel sounds. No palpable organomegaly. MUSCULOSKELETAL: No joint swelling or deformity. EXTREMITIES: No cyanosis, clubbing, or pedal edema. NEUROLOGICAL: Gross neurological examination did not reveal any focal deficits. SKIN: No rashes. Results CBC & Chem 7: 12/29/18 20:10 12/29/18 20:10 Labs: Abnormal Lab Results - Last 24 Hours (Table) 12/29/18 12/29/18 Range/Units 20:10 20:10 WBC 3.6 L (3.8-10.6) k/uL RDW 15.6 H (11.5-15.5) % Plt Count 72 L D (150-450) k/uL Chloride 96 L (98-107) mmol/L BUN 6 L (9-20) mg/dL Creatinine 0.61 L (0.66-1.25) mg/dL Glucose 102 H (74-99) mg/dL AST 236 H (17-59) U/L ALT 220 H (21-72) U/L Serum Alcohol 393 H* mg/dL Thrombosis Risk Factor Assmnt - Choose All That Apply Any of the Below Risk Factors Present?: No Other Risk Factors: Yes Each Risk Factor Represents 2 Points: Patient confined to bed Other congenital or acquired thrombophilia - If yes, enter type in comment: No Thrombosis Risk Factor Assessment Total Risk Factor Score: 2 Thrombosis Risk Factor Assessment Level: Low Risk Assessment and Plan Plan: -Alcohol abuse: Counseling was provided -Alcohol withdrawal patient will be on Ativan CIWA protocol -Acute alcoholic hepatitis expected to improve with cessation of alcohol -Thrombocytopenia secondary to bone marrow suppression from alcohol - depression Patient will need pharmacologic GI and DVT prophylaxis
[2018-12-30] MEDS: HEPARIN SODIUM,PORCINE 5,000 UNIT/ML 1 ML VIAL SQ SCH ×2 (17:07→23:56)
[2018-12-30] MEDS: THIAMINE 100 MG TAB PO SCH (17:07)
[2018-12-30] MEDS ORDERED: LORATADINE 10 MG TAB PO PRN (17:12)
[2018-12-30] MEDS: FAMOTIDINE 20 MG TAB PO SCH (20:08)
[2018-12-31] MEDS: LORazepam 2 MG/ML INJ IV PRN ×3 (04:26→13:16)
[2018-12-31] MEDS: SODIUM CHLORIDE 0.9% 1,000 ML IV SCH ×2 (04:27→23:24)
[2018-12-31] MEDS: HEPARIN SODIUM,PORCINE 5,000 UNIT/ML 1 ML VIAL SQ SCH ×3 (08:31→23:02)
[2018-12-31] MEDS: THIAMINE 100 MG TAB PO SCH ×2 (08:31→16:59)
[2018-12-31] MEDS: FAMOTIDINE 20 MG TAB PO SCH ×2 (08:31→21:09)
[2018-12-31] MEDS: chlordiazePOXIDE 25 MG CAP PO SCH ×2 (16:58→23:02)
[2018-12-31] MEDS: LORazepam 1 MG TAB PO PRN (16:58)
--- NOTE | 2018-12-31 20:09 | P.PN ---
Subjective Progress Note Date: 12/31/18 Principal diagnosis: This is a 38 year old male that was admitted for alcohol withdrawal as he has been admitted multiple times for this but states that he is accepting and willing to go to a subacute rehab such as [facility] for alcohol abuse. Patient is scoring a 9 on the CIWA scale and receiving IV ativan for this. Patient is sitting comfortably in bed in no acute distress and denies any chest pain, shortness of breath, or palpitations at this time. Patient is afebrile. P atient denies any nausea or vomiting and has been eating well. Patient states that he is just experiencing shaking in bilateral hands. Patient has been talking with Jassi the group social worker and an appointment for admission has been made with [facility]. Patient is currently homeless as well and social work is working on this currently. Jassi will be calling [facility] in the morning to see if we may be able to transfer him sooner than Friday in hopes of avoiding a possible alcohol relapse while awaiting for his Friday appointment. Patient will be closely monitored. Objective - Vital Signs Vital signs: Vital Signs Temp 97.6 F 12/31/18 11:11 Pulse 77 12/31/18 11:11 Resp 18 12/31/18 11:11 BP 129/76 12/31/18 11:11 Pulse Ox 97 12/31/18 11:11 Intake & Output 12/31/18 12/31/18 01/01/19 06:59 18:59 06:59 Intake Total 590 600 Output Total 1100 2300 Balance -510 -1700 Intake: Oral 590 600 Output: Urine 1100 2300 Other: Voiding Method Urinal Urinal # Voids 3 2 - Exam On exam, the patient is alert and oriented and appears in no acute distress. Vital signs are stable. Heent: conjunctivae normal, EOMs intact Neck: supple, no lymph nodes noted, no JVD noted Cardiovascular: S1, S2 heard, RRR Respiratory: breath sounds clear upon auscultation Abdomen: soft, non-tender, no masses noted Legs: no swelling or edema noted Nervous system: no new focal deficits, gait is steady. patient displays mild tremors of bilateral hands Skin: dry, no rashes or lesions noted. Face and arms are sunburned with some peeling noted Labs: As noted below Assessment: Alcohol abuse: counseling was provided Alcohol withdrawal: patient is currently on CIWA protocol and tapering the Ativan to PO at 1mg TID PRN as his scores have been lowering Acute alcoholic hepatitis expected to improve with cessation of alcohol Thrombocytopenia secondary to bone marrow suppression from alcohol use History of depression Recommendations and Discussion: Recommend continuing current medications and symptomatic management. Will discontinue the IV ativan and switch to by mouth. Start Librium 25mg TID. Will continue to monitor closely. Will continue to monitor lab values and vitals. Further instructions to follow. Prognosis is guarded at this time. Awaiting social work to call [facility] in the am to attempt to move up the admission as it is currently scheduled for Friday. Spoke to the patient in length about refraining from alcohol use and encouraged rehab. Further instructions to follow. Possible discharge in 24 hours. - Constitutional General appearance: Present: no acute distress - Labs CBC & Chem 7: 12/29/18 20:10 12/29/18 20:10
[2019-01-01 06:17] VITALS: BP 149/85; PULSE 59; RESP 20; TEMP 98.8
[2019-01-01] MEDS: HEPARIN SODIUM,PORCINE 5,000 UNIT/ML 1 ML VIAL SQ SCH (08:07)
[2019-01-01] MEDS: LORazepam 1 MG TAB PO PRN (08:07)
[2019-01-01] MEDS: THIAMINE 100 MG TAB PO SCH (08:07)
[2019-01-01] MEDS: FAMOTIDINE 20 MG TAB PO SCH (08:07)
[2019-01-01] MEDS: chlordiazePOXIDE 25 MG CAP PO SCH (08:07)
--- NOTE | 2019-01-01 14:20 | P.DS ---
Providers Date of admission: 12/29/18 21:16 Expected date of discharge: 01/01/19 Attending physician: Myriam Hunter Primary care physician: Stated None Hospital Course: Final diagnosis Alcohol withdrawal Alcohol abuse Acute alcoholic hepatitis Thrombocytopenia secondary to bone marrow suppression from alcohol use History of depression Discharge disposition The patient is being discharged in a stable condition with guarded prognosis to home and will be going to [facility] this Friday at 9:30 AM for rehab. History of present illness This is a 38-year-old male who was admitted for alcohol withdrawal and acute alcoholic intoxication and was closely monitored. Patient was on the CIWA protocol during his admission and was started on Librium 25 mg 3 times a day. Discussed at length with the patient about refraining from any alcohol use and going to [facility] for rehab. Patient states that he is currently homeless and unsure of how he will get [facility] on Friday but will walk if he has to. Patient wants help for this. Patient denies any shortness of breath, chest pain, palpitations, and his shaking of his hands have subsided. Patient states that he is trying to call his sister who lives nearby to stay with her for a few days and also to get a right [facility] on Friday. Patient is being discharged in a stable condition with guarded prognosis and is to follow-up with [facility] for alcohol rehab. On exam vital signs are stable. Cardio S1 and S2 are normal. Respiratory is clear to auscultation. Abdomen is soft and nontender. Nervous system shows no focal deficits and gait is steady. Please refer to the medication reconciliation sheet for list of medications Patient Condition at Discharge: Fair Plan - Discharge Summary Discharge Rx Participant: Yes New Discharge Prescriptions: New chlordiazePOXIDE HCl [Librium] 25 mg PO TID 7 Days #21 cap Discharge Medication List chlordiazePOXIDE HCl [Librium] 25 mg PO TID 7 Days #21 cap 01/01/19 [Rx] Follow up Appointment(s)/Referral(s): None,Stated [Primary Care Provider] - 1-2 days Patient Instructions/Handouts: Chlordiazepoxide/Clidinium (By mouth), Alcohol Intoxication (DC) Activity/Diet/Wound Care/Special Instructions: Activity Limited until follow-up Continue current diet and advance as tolerated Follow-up with [facility] and appointment is scheduled for Javier morning 9:30 am for inpatient rehab Avoid all alcohol intake Discharge Disposition: HOME SELF-CARE
== END 2019-01-01 11:41 | disposition home or self-care (01) ==
LOC: EC 19:48 → 3NMEDONC 21:16
PROVIDERS: ADMIT Hospitalist; ATTEND Hospitalist
DX: F10.239 Alcohol dependence with withdrawal, unspecified (principal); F10.229 Alcohol dependence with intoxication, unspecified; K70.10 Alcoholic hepatitis without ascites; F32.9 Major depressive disorder, single episode, unspecified; D69.59 Other secondary thrombocytopenia; L55.9 Sunburn, unspecified; Z59.0 Homelessness; Z87.01 Personal history of pneumonia (recurrent); Z91.02 Food additives allergy status; Z91.018 Allergy to other foods; Z74.01 Bed confinement status; Y90.8 Blood alcohol level of 240 mg/100 ml or more; Z82.61 Family history of arthritis; Z82.69 Family history of other diseases of the musculoskeletal system and connective tissue
CPT/HCPCS: 96376 ×2; 96372 ×3; 96374; 96361; 99284; 36415; 80053; 83735; 85025; G0378 ×4; G0480; J2060 ×3; J1644 ×3; J3411; 80320

== ENCOUNTER 2019-01-09 22:41 | Inpatient (IN) | payer OTHER ==
[2019-01-09] MEDS ORDERED: LORazepam 2 MG/ML INJ IV PRN ×2 (23:17)
[2019-01-09] MEDS ORDERED: THIAMINE 100 MG/ML 2 ML VIAL IM STA (23:17)
[2019-01-09] MEDS ORDERED: LORazepam 2 MG/ML INJ IV STA (23:25)
[2019-01-09] MEDS ORDERED: SODIUM CHLORIDE 0.9% 1,000 ML IV ONE (23:25)
[2019-01-09 23:42] LABS: Anisocytosis Slight; Basophils % (A) 1 %; Eosinophils % (A) 1 %; HCT 43.2 % (39.0-53.0); HGB 14.1 gm/dL (13.0-17.5); Lymphocytes # (A) 0.9 k/uL (1.0-4.8); Lymphocytes % (A) 29 %; MCH 29.3 pg (25.0-35.0); MCHC 32.6 g/dL (31.0-37.0); MCV 89.7 fL (80.0-100.0); Mean Platelet Volume 6.6; Monocytes # (A) 0.3 k/uL (0-1.0); Monocytes % (A) 11 %; Neutrophils # (A) 1.6 k/uL (1.3-7.7); Neutrophils % (A) 55 %; RBC 4.82 m/uL (4.30-5.90); RDW 16.7 % (11.5-15.5)
[2019-01-09 23:51] LABS: ALT 276 U/L (21-72); AST 347 U/L (17-59); African American GFR (CKD) >90 (>60 ml/min/1.73 sqM); Anion Gap 12 mmol/L; Blood Urea Nitrogen 5 mg/dL (9-20); Calcium 8.4 mg/dL (8.4-10.2); Carbon Dioxide 29 mmol/L (22-30); Chloride 103 mmol/L (98-107); Glucose 88 mg/dL (74-99); Potassium 4.2 mmol/L (3.5-5.1); Sodium 144 mmol/L (137-145)
[2019-01-09 23:52] LABS: Platelet Count 199 k/uL (150-450)
[2019-01-10] MEDS: THIAMINE 100 MG TAB PO SCH ×3 (00:04→15:59)
[2019-01-10 00:11] LABS: Alcohol 476 mg/dL
[2019-01-10] MEDS ORDERED: NALOXONE 0.4 MG/ML 1 ML VIAL IV PRN (00:14)
[2019-01-10] MEDS ORDERED: PROMETHAZINE 25 MG TAB PO PRN (00:14)
[2019-01-10] MEDS ORDERED: ONDANSETRON 4 MG/2 ML VIAL IVP PRN (00:14)
[2019-01-10] MEDS ORDERED: ACETAMINOPHEN TAB 325 MG TAB PO PRN (00:14)
--- NOTE | 2019-01-10 00:21 | ED ---
Alcohol HPI - General Chief Complaint: Alcohol Stated Complaint: ETOH Time Seen by Provider: 01/09/19 22:50 Source: EMS Mode of arrival: EMS Limitations: no limitations - History of Present Illness MD Complaint: alcohol withdrawal Last Drink: just ANY [employer] Previous Visits for Alcohol Intoxication?: Yes Recent Trauma: No Associated Symptoms: tremors Treatments Prior to Arrival: none Chronic Alcohol Use: Yes - Related Data Previous Rx's Medication Instructions Recorded chlordiazePOXIDE HCl [Librium] 25 mg PO TID 7 Days #21 cap 01/01/19 Allergies Allergy/AdvReac Type Severity Reaction Status Date / Time chocolate flavor Allergy Rash/Hives Verified 01/09/19 23:48 coconut oil Allergy Rash/Hives Verified 01/09/19 23:48 pineapple Allergy Rash/Hives Verified 01/09/19 23:48 Review of Systems ROS Statement: Those systems with pertinent positive or pertinent negative responses have been documented in the HPI. ROS Other: All systems not noted in ROS Statement are negative. Constitutional: Denies: fever, chills Respiratory: Denies: cough, dyspnea Cardiovascular: Denies: chest pain, palpitations, edema Gastrointestinal: Denies: abdominal pain, nausea, vomiting Musculoskeletal: Denies: back pain Skin: Denies: rash Neurological: Denies: headache, weakness, numbness Psychiatric: Reports: anxiety Past Medical History Past Medical History: Hypertension, Pneumonia, Seizure Disorder Additional Past Medical History / Comment(s): VERTIGO IN PAST,ETOH ABUSE, WITHDRAWLS/DT"S. SEIZURE x2 D/T ETOH , chronic alcoholic thrombocytopenia History of Any Multi-Drug Resistant Organisms: None Reported Past Surgical History: Orthopedic Surgery Additional Past Surgical History / Comment(s): RT WRIST SX Past Anesthesia/Blood Transfusion Reactions: No Reported Reaction Additional Past Anesthesia/Blood Transfusion Reaction / Comment(s): CLAUSTERPHOBIA Past Psychological History: Anxiety, Depression Smoking Status: Never smoker Past Alcohol Use History: Abuse, Daily, Heavy Past Drug Use History: None Reported - Past Family History Mother Family Medical History: Fibromyalgia, Rheumatoid Arthritis (RA) Father Family Medical History: Osteoarthritis (OA) Additional Family Medical History / Comment(s): BACK PROBLEMS General Exam Limitations: no limitations General appearance: alert, appears intoxicated, anxious Head exam: Present: atraumatic, normocephalic Eye exam: Present: normal appearance. Absent: scleral icterus, conjunctival injection ENT exam: Present: mucous membranes dry Neck exam: Present: normal inspection, full ROM. Absent: tenderness Respiratory exam: Present: normal lung sounds bilaterally. Absent: respiratory distress, wheezes, rales, rhonchi, stridor Cardiovascular Exam: Present: regular rate, normal rhythm, normal heart sounds. Absent: systolic murmur, diastolic murmur, rubs, gallop GI/Abdominal exam: Present: soft. Absent: distended, tenderness, guarding, rebound, rigid, mass Extremities exam: Present: normal inspection, normal capillary refill. Absent: pedal edema, calf tenderness Back exam: Present: normal inspection. Absent: vertebral tenderness Neurological exam: Present: alert, other (Mild tremor). Absent: motor sensory deficit Psychiatric exam: Absent: homicidal ideation, suicidal ideation Skin exam: Present: warm, dry, intact, normal color. Absent: rash Course Vital Signs 01/09/19 22:53 Temperature 97.2 F L Pulse Rate 91 Respiratory 20 Rate Blood Pressure 137/90 O2 Sat by Pulse 96 Oximetry Medical Decision Making - Lab Data Result diagrams: 01/09/19 23:30 01/09/19 23:30 Lab Results 01/09/19 01/09/19 Range/Units 23:30 23:30 WBC 3.0 L (3.8-10.6) k/uL RBC 4.82 (4.30-5.90) m/uL Hgb 14.1 (13.0-17.5) gm/dL Hct 43.2 (39.0-53.0) % MCV 89.7 (80.0-100.0) fL MCH 29.3 (25.0-35.0) pg MCHC 32.6 (31.0-37.0) g/dL RDW 16.7 H (11.5-15.5) % Plt Count 199 D (150-450) k/uL Neutrophils % 55 % Lymphocytes % 29 % Monocytes % 11 % Eosinophils % 1 % Basophils % 1 % Neutrophils # 1.6 (1.3-7.7) k/uL Lymphocytes # 0.9 L (1.0-4.8) k/uL Monocytes # 0.3 (0-1.0) k/uL Eosinophils # 0.0 (0-0.7) k/uL Basophils # 0.0 (0-0.2) k/uL Anisocytosis Slight Sodium 144 (137-145) mmol/L Potassium 4.2 (3.5-5.1) mmol/L Chloride 103 (98-107) mmol/L Carbon Dioxide 29 (22-30) mmol/L Anion Gap 12 mmol/L BUN 5 L (9-20) mg/dL Creatinine 0.63 L (0.66-1.25) mg/dL Est GFR (CKD-EPI)AfAm >90 (>60 ml/min/1.73 sqM) Est GFR (CKD-EPI)NonAf >90 (>60 ml/min/1.73 sqM) Glucose 88 (74-99) mg/dL Calcium 8.4 (8.4-10.2) mg/dL AST 347 H (17-59) U/L ALT 276 H (21-72) U/L Serum Alcohol 476 H* mg/dL Disposition Clinical Impression: Alcohol withdrawal, Alcoholic hepatitis Disposition: ADMITTED IP TO THIS HOSP Condition: Fair Referrals: None,Stated [Primary Care Provider] - 1-2 days
[2019-01-10] MEDS: SODIUM CHLORIDE 0.9% 1,000 ML IV SCH ×4 (01:07→22:21)
[2019-01-10] MEDS: LORazepam 2 MG/ML INJ IV PRN ×8 (01:32→22:21)
[2019-01-10] MEDS: FAMOTIDINE 20 MG TAB PO SCH ×2 (07:33→20:03)
--- NOTE | 2019-01-10 13:08 | P.HPIM ---
History of Present Illness H&P Date: 01/10/19 Chief Complaint: Alcohol intoxication Mr. Lee is a 38-year-old male with a past medical history of alcohol abuse, hypertension, seizure disorder admitted to the hospital for alcohol intoxication. Patient states that he was found down and so EMS was called and was brought into the hospital. Patient has history of alcohol abuse she drinks significant amount of beer every day. He mentions that he tried going into rehab program and was treated for alcohol withdrawals. He mentions that he was sober for a few days but yesterday he did drink significant amount of alcohol. Patient denies having any fevers chills or rigors. No chest pain or palpitations. No abdominal pain nausea vomiting or diarrhea. No swelling of his lower extremities. No recent travel. No sick contacts. In the emergency the patient was found to have an alcohol level of 476 and admitted for further management. There is slight elevation of his AST and healthy which goes along with alcohol and hepatitis. Patient is currently getting IV fluids and thiamine supplements and admitted for further management. Review of Systems REVIEW OF SYSTEMS: CONSTITUTIONAL: No fever, no malaise, no fatigue. HEENT: No recent visual problems or hearing problems. Denied any sore throat. CARDIOVASCULAR: No chest pain, orthopnea, PND, no palpitations, no syncope. PULMONARY: No shortness of breath, no cough, no hemoptysis. GASTROINTESTINAL: No diarrhea, no nausea, no vomiting, no abdominal pain. NEUROLOGICAL: No headaches, no weakness, no numbness. HEMATOLOGICAL: Denies any bleeding or petechiae. GENITOURINARY: Denies any burning micturition, frequency, or urgency. MUSCULOSKELETAL/RHEUMATOLOGICAL: Denies any joint pain, swelling, or any muscle pain. ENDOCRINE: Denies any polyuria or polydipsia. The rest of the 14-point review of systems is negative. Past Medical History Past Medical History: Hypertension, Pneumonia, Seizure Disorder Additional Past Medical History / Comment(s): VERTIGO IN PAST,ETOH ABUSE, WITHDRAWLS/DT"S. SEIZURE x2 D/T ETOH , chronic alcoholic thrombocytopenia History of Any Multi-Drug Resistant Organisms: None Reported Past Surgical History: Orthopedic Surgery Additional Past Surgical History / Comment(s): RT WRIST SX Past Anesthesia/Blood Transfusion Reactions: No Reported Reaction Additional Past Anesthesia/Blood Transfusion Reaction / Comment(s): CLAUSTERPHOBIA Past Psychological History: Anxiety, Depression Additional Psychological History / Comment(s): pt stated he is homeless. has been to rehab for etoh in past several times and wishes to go back.. 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 Smoking Status: Never smoker Past Alcohol Use History: Abuse, Daily, Heavy Additional Past Alcohol Use History / Comment(s): pt admits to drinking at least. 15-20 tall(24 ounce) cans of beer per day Past Drug Use History: None Reported Additional Drug Use History / Comment(s): previous went to [facility] for alcohol abuse tx - Past Family History Mother Family Medical History: Fibromyalgia, Rheumatoid Arthritis (RA) Father Family Medical History: Osteoarthritis (OA) Additional Family Medical History / Comment(s): BACK PROBLEMS Medications and Allergies Home Medications Medication Instructions Recorded Confirmed Type chlordiazePOXIDE HCl [Librium] 25 mg PO TID 7 Days #21 cap 01/01/19 01/09/19 Rx Allergies Allergy/AdvReac Type Severity Reaction Status Date / Time chocolate flavor Allergy Rash/Hives Verified 01/09/19 23:48 coconut oil Allergy Rash/Hives Verified 01/09/19 23:48 pineapple Allergy Rash/Hives Verified 01/09/19 23:48 Physical Exam Vitals: Vital Signs Temp Pulse Pulse Resp BP BP Pulse Ox 01/10/19 07:00 98.8 F 93 15 125/77 99 01/10/19 01:19 97.5 F L 95 18 127/78 97 01/10/19 01:08 98.0 F 103 H 14 133/80 97 01/09/19 22:53 97.2 F L 91 20 137/90 96 Intake and Output 01/09/19 01/10/19 01/10/19 22:59 06:59 14:59 Intake Total 625 180 Balance 625 180 Intake: Intake, IV Titration 625 Amount Sodium Chloride 0.9% 1, 625 000 ml @ 125 mls/hr IV . Q8H [facility] Rx#:[id number] Oral 180 Other: Weight 70.307 kg GEN. APPEARANCE: alert, in no apparent distress, disheveled HENT EXAM: No pallor. No icterus. Pupils round and reactive to light. No palpable neck masses. RESPIRATORY EXAM: normal lung sounds bilaterally. Absent: respiratory distress, wheezes, rales, rhonchi, stridor CARDIOVASCULAR EXAM: regular rate, normal rhythm, normal heart sounds. Absent: systolic murmur, diastolic murmur, rubs, gallop, clicks GI/ABDOMINAL EXAM: soft, normal bowel sounds. Absent: distended, tenderness, guarding, rebound, rigid EXTREMITIES EXAM: No peripheral edema NEUROLOGICAL EXAM: alert, oriented X3, no focal neurological deficits PSYCHIATRIC EXAM: normal affect, normal mood SKIN EXAM: Patient has skin breakdown in both his feet, along with some healing scar tissue seen. Results CBC & Chem 7: 01/09/19 23:30 01/09/19 23:30 Labs: Abnormal Lab Results - Last 24 Hours (Table) 01/09/19 01/09/19 Range/Units 23:30 23:30 WBC 3.0 L (3.8-10.6) k/uL RDW 16.7 H (11.5-15.5) % Lymphocytes # 0.9 L (1.0-4.8) k/uL BUN 5 L (9-20) mg/dL Creatinine 0.63 L (0.66-1.25) mg/dL AST 347 H (17-59) U/L ALT 276 H (21-72) U/L Serum Alcohol 476 H* mg/dL Thrombosis Risk Factor Assmnt - Choose All That Apply Any of the Below Risk Factors Present?: No Other Risk Factors: No Other congenital or acquired thrombophilia - If yes, enter type in comment: No Thrombosis Risk Factor Assessment Level: Very Low Risk Assessment and Plan Assessment: ASSESSMENT Acute alcohol intoxication Delirium tremens Alcoholic hepatitis Thrombocytopenia Substance abuse disorder PLAN: Patient has been placed on the CIWA protocol. Continue with GI DVT prophylaxis. Continue with thiamine supplements. Counseling regarding alcohol cessation provided. Further recommendations depending on the progress of the patient.
--- NOTE | 2019-01-10 17:57 | P.CN ---
Psychiatric Consult - . Consult date: 01/10/19 Consult:: 01/10/19 17:48 IDENTIFYING DATA: 38-year-old male. HPI: Patient admitted to the medical floor [facility] [place] [facility] with chief complaint per chart history of alcohol intoxication. Per chart history patient came in by EMS. Patient states that he also admitted to much heat and thinks that he was dehydrated. He states he has been drinking alcohol daily for the last 2-1/2 months. Prior to that he had 10 and a half months of sobriety. He feels that his mood is been pretty stable lately. He currently reports that he feels some sweatiness and shakiness the Ativan is helping take the edge off his withdrawals. PAST PSYCHIATRIC HISTORY: Denies. Denies any psychiatric hospitalizations. Denies any times where he has tried to hurt himself. PMH: Hypertension, seizure disorder, vertigo, pneumonia, thrombocytopenia ALLERGIES: Chocolate flavor, coconut oil, pineapple MEDICATIONS: Tylenol when necessary, Ativan when necessary, Pepcid, Narcan when necessary, Zofran when necessary, Phenergan when necessary, vitamin B1 CHEMICAL DEPENDENCY HISTORY: Patient reports that he has been drinking alcohol daily for the past 2-1/2 months. He had 10-1/2 months sobriety prior. He has been to [facility] for rehab 7 times. He is going to call there tomorrow to look at getting back into [facility]. FAMILY PSYCHIATRIC HISTORY: None known FAMILY CHEMICAL DEPENDENCY HISTORY: Not known at this time SOCIAL HISTORY: He recently has been homeless, staying with friends. 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 He is not on any current disability. He talks about wanting to go to a [facility] in [place] after his treatment at [facility]. MENTAL STATUS EXAM: He is alert and cooperative with the interview. His speech is fluent, not rapid or pressured. Thought processes organized. His mood he describes as "anxious." He denies any thoughts of harm to self or others. He is oriented to month and year states the date is the . He is oriented to place and person. He does not show any agitation. IMPRESSIONS: Alcohol use disorder with alcohol withdrawal PLAN: Patient plans on calling [facility] tomorrow to look at going to rehab treatment. Continue Ativan when necessary as current. Continue to monitor for signs and symptoms of alcohol withdrawal. Psychiatry can follow up as needed. He also plans on looking at going to [facility] after discharge from [facility].
[2019-01-11] MEDS: LORazepam 2 MG/ML INJ IV PRN ×8 (02:25→22:14)
[2019-01-11] MEDS: SODIUM CHLORIDE 0.9% 1,000 ML IV SCH ×3 (06:06→20:28)
[2019-01-11] MEDS: THIAMINE 100 MG TAB PO SCH ×2 (08:25→17:09)
[2019-01-11] MEDS: FAMOTIDINE 20 MG TAB PO SCH ×2 (08:25→19:28)
[2019-01-11 08:42] LABS: Basophils % (A) 1 %; Eosinophils # (A) 0.1 k/uL (0-0.7); Eosinophils % (A) 1 %; HCT 40.1 % (39.0-53.0); Lymphocytes # (A) 0.5 k/uL (1.0-4.8); Lymphocytes % (A) 11 %; MCH 29.3 pg (25.0-35.0); MCHC 32.3 g/dL (31.0-37.0); MCV 90.9 fL (80.0-100.0); Mean Platelet Volume 6.8; Monocytes # (A) 0.3 k/uL (0-1.0); Monocytes % (A) 6 %; Neutrophils # (A) 3.5 k/uL (1.3-7.7); Neutrophils % (A) 79 %; Platelet Count 131 k/uL (150-450); RBC 4.42 m/uL (4.30-5.90); RDW 15.4 % (11.5-15.5); WBC 4.4 k/uL (3.8-10.6)
[2019-01-11 08:43] LABS: African American GFR (CKD) >90 (>60 ml/min/1.73 sqM); Anion Gap 11 mmol/L; Blood Urea Nitrogen 3 mg/dL (9-20); Calcium 8.5 mg/dL (8.4-10.2); Carbon Dioxide 29 mmol/L (22-30); Chloride 97 mmol/L (98-107); Glucose 58 mg/dL (74-99); Potassium 3.7 mmol/L (3.5-5.1); Sodium 137 mmol/L (137-145)
[2019-01-11 09:17] LABS: Glucose,Whole Blood 73 mg/dL (75-99)
--- NOTE | 2019-01-11 15:12 | P.DS ---
Providers Date of admission: 01/10/19 00:14 Expected date of discharge: 01/12/19 Attending physician: Myriam Hunter Consults: 01/10/19 00:15 Consult Physician Routine Consulting Provider: Laura Cornelius Consult Reason/Comments: Alcohol withdrawal Do you want consulting provider notified?: Already Contacted Primary care physician: Stated None Hospital Course: Mr. Lee is a 38-year-old male with a past medical history of alcohol abuse, hypertension, seizure disorder admitted to the hospital for alcohol intoxication. Patient states that he was found down and so EMS was called and was brought into the hospital. Patient has history of alcohol abuse she drinks significant amount of beer every day. He mentions that he tried going into rehab program and was treated for alcohol withdrawals. He mentions that he was sober for a few days but yesterday he did drink significant amount of alcohol. Patient denies having any fevers chills or rigors. No chest pain or pal pitations. No abdominal pain nausea vomiting or diarrhea. No swelling of his lower extremities. No recent travel. No sick contacts. In the emergency the patient was found to have an alcohol level of 476 and admitted for further management. There is slight elevation of his AST and healthy which goes along with alcohol and hepatitis. Patient is currently getting IV fluids and thiamine supplements and admitted for further management. During the hospital stay patient was put on Ativan, given lithium and his withdrawal symptoms are under good control. He was given thiamine and IV fluids. Patient's labs within normal limits. 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 Patient will be in the hospital until tomorrow morning at which time he will have a place at rehab to go to. DISCHARGE DIAGNOSIS Acute alcohol intoxication Delirium tremens Alcoholic hepatitis Thrombocytopenia Substance abuse disorder PLAN: Patient will be discharged to a rehab center early tomorrow morning. Counseled on alcohol cessation as well. Patient Condition at Discharge: Fair Plan - Discharge Summary New Discharge Prescriptions: New Thiamine [Vitamin B-1] 100 mg PO BID-W/MEALS 30 Days #30 tab Continue chlordiazePOXIDE HCl [Librium] 25 mg PO TID 7 Days #21 cap Discharge Medication List chlordiazePOXIDE HCl [Librium] 25 mg PO TID 7 Days #21 cap 01/01/19 [Rx] Thiamine [Vitamin B-1] 100 mg PO BID-W/MEALS 30 Days #30 tab 01/11/19 [Rx] Follow up Appointment(s)/Referral(s): None,Stated [Primary Care Provider] - 1-2 days
--- NOTE | 2019-01-11 15:47 | P.PN ---
Progress Note - Text Progress Note Date: 01/11/19 Interval History: Patient is a 38-year-old male being seen in follow-up to a consultation he states that he did contact [facility] and has an intake appointment on January 14 at 12 noon. Patient states that he still having some shaking and sweating and has been eating and sleeping fairly well. He reports that he been drinking 10 tall boy beers a day for the last 2-1/2 months and prior to that it been sober for about 10-1/2 months. Patient has been in alcohol rehab [facility] in the past. Patient denies any current suicidal ideation. Mental Status: Patient is sitting in a hospital bed, makes eye contact and was cooperative. Patient states that he has been eating and sleeping and reports still having some shakiness and some sweats. He states that he is not currently having any auditory or visual hallucinations and no paranoid or delusional ideation is elicited. Patient denies any current suicidal or homicidal ideation. Patient's speech was spontaneous of normal volume and rhythm and he was coherent. He was goal-directed in his thoughts. Patient has contacted [facility] and has a follow-up appointment. He reports that he is eating and sleeping well. Patient's mood was pleasant and his affect was appropriate. Patient was alert and oriented to person, place and time. Assessment: Patient states he contacted [facility] and has an intake appointment on January 14 at 12 noon. Patient states that he has been in alcohol rehab programs in the past and is satisfied with this intake date. At this time the patient had no complaints and did not endorse any symptoms of psychosis, depression, anxiety or evelyn. Plan: Patient has his intake appointment scheduled at [facility] he was encouraged to keep this appointment and avoid all alcohol and drugs prior to this appointment. I will sign off the case at this time.
[2019-01-12] MEDS: SODIUM CHLORIDE 0.9% 1,000 ML IV SCH ×3 (01:42→08:05)
[2019-01-12] MEDS: LORazepam 2 MG/ML INJ IV PRN ×3 (01:57→08:13)
[2019-01-12 07:33] VITALS: BP 142/91; PULSE 92; RESP 16; TEMP 99.6
[2019-01-12] MEDS: FAMOTIDINE 20 MG TAB PO SCH (08:08)
[2019-01-12] MEDS: THIAMINE 100 MG TAB PO SCH (08:08)
== END 2019-01-12 08:52 | DRG 433 ==
LOC: EC 22:41 → 4SSUR 01-10 00:14
PROVIDERS: ADMIT Hospitalist; ATTEND Hospitalist
DX: K70.10 Alcoholic hepatitis without ascites (principal); F10.231 Alcohol dependence with withdrawal delirium; Y90.8 Blood alcohol level of 240 mg/100 ml or more; D69.6 Thrombocytopenia, unspecified; F32.9 Major depressive disorder, single episode, unspecified; F41.9 Anxiety disorder, unspecified; G40.909 Epilepsy, unspecified, not intractable, without status epilepticus; I10 Essential (primary) hypertension; Z59.0 Homelessness; Z56.0 Unemployment, unspecified; Z87.01 Personal history of pneumonia (recurrent); E86.0 Dehydration
CPT/HCPCS: 36415; 80048; 80320; 84450; 84460; 85025; 96361; 96372; 96374; 99285

== ENCOUNTER 2020-04-23 13:11 | Emergency (ER) | payer OTHER ==
[2020-04-23 13:24] VITALS: BP 105/55; PULSE 84; RESP 18; TEMP 97.7
--- NOTE | 2020-04-23 14:05 | ED ---
General Adult HPI - General Chief complaint: Allergic Reaction Stated complaint: sycope,headache Time Seen by Provider: 04/23/20 13:48 Source: patient Mode of arrival: wheelchair Limitations: no limitations - History of Present Illness Initial comments: Patient is a 40-year-old male presenting to emergency Department with complaints of having a possible ALLERGIC reaction. [place] all of a sudden he had some itchiness and redness of his scan and also felt lightheaded. Patient's then states he felt like he needed to have a bowel movement and there is no vertigo. Patient states he then walked to the hospital and asked use the restroom. Patient states he continued to feel lightheaded and decided to be seen. Patient states at this time he is feeling better, he denies any lightheadedness, chest pain, shortness of breath, nausea, vomiting. He states he is no longer itchy. He does have a history of alcohol abuse however patient states he has been sober for the last 15 months. He denies any other drug use. Patient has no complaints at this time. Upon arrival to the ER his vitals are stable. - Related Data Previous Rx's Medication Instructions Recorded chlordiazePOXIDE HCl [Librium] 25 mg PO TID 7 Days #21 cap 01/01/19 Thiamine [Vitamin B-1] 100 mg PO BID-W/MEALS 30 Days #30 01/11/19 tab Allergies Allergy/AdvReac Type Severity Reaction Status Date / Time chocolate flavor Allergy Rash/Hives Verified 04/23/20 13:24 coconut oil Allergy Rash/Hives Verified 04/23/20 13:24 pineapple Allergy Rash/Hives Verified 04/23/20 13:24 Review of Systems ROS Statement: Those systems with pertinent positive or pertinent negative responses have been documented in the HPI. ROS Other: All systems not noted in ROS Statement are negative. Past Medical History Past Medical History: Hypertension, Pneumonia, Seizure Disorder Additional Past Medical History / Comment(s): VERTIGO IN PAST,ETOH ABUSE, WITHDRAWLS/DT"S. SEIZURE x2 D/T ETOH , chronic alcoholic thrombocytopenia History of Any Multi-Drug Resistant Organisms: None Reported Past Surgical History: Orthopedic Surgery Additional Past Surgical History / Comment(s): RT WRIST SX Past Anesthesia/Blood Transfusion Reactions: No Reported Reaction Additional Past Anesthesia/Blood Transfusion Reaction / Comment(s): CLAUSTERPHOBIA Past Psychological History: Anxiety, Depression Smoking Status: Current some day smoker Past Alcohol Use History: Abuse, Daily, Heavy Past Drug Use History: None Reported - Past Family History Mother Family Medical History: Fibromyalgia, Rheumatoid Arthritis (RA) Father Family Medical History: Osteoarthritis (OA) Additional Family Medical History / Comment(s): BACK PROBLEMS General Exam - General Exam Comments Initial Comments: GENERAL: Patient is well-developed and well-nourished. Patient is nontoxic and in no acute distress. HEAD: Atraumatic, normocephalic. EYES: Pupils equal round and reactive to light, extraocular movements intact, sclera anicteric, conjunctiva are normal. Eyelids were unremarkable. ENT: TMs normal, nares patent, oropharynx clear without exudates. Moist mucous membranes. NECK: Normal range of motion, supple without lymphadenopathy or JVD. LUNGS: Unlabored respirations. Breath sounds clear to auscultation bilaterally and equal. No wheezes rales or rhonchi. HEART: Regular rate and rhythm without murmurs, rubs or gallops. ABDOMEN: Soft, nontender, normoactive bowel sounds. No guarding, no rebound. No masses appreciated. : Deferred MUSCULOSKELETAL: Normal extremities with adequate strength and normal range of motion, no pitting or edema. No clubbing or cyanosis. NEUROLOGICAL: Patient is alert and oriented x 3. Motor and sensory are also intact. Cranial nerves II through XII grossly intact. Symmetrical smile. Normal speech, normal gait. PSYCH: Normal mood, normal affect. SKIN: Warm, Dry, normal turgor, no rashes or lesions noted. Limitations: no limitations Course Vital Signs 04/23/20 13:18 Temperature 97.7 F Pulse Rate 84 Respiratory 18 Rate Blood Pressure 105/55 O2 Sat by Pulse 97 Oximetry Medical Decision Making - Medical Decision Making Patient is a 40-year-old male here with complaints for possible ALLERGIC reaction, lightheadedness. His vital signs are stable. Upon questioning the patient, patient states he feels fine at this time, he has no active complaints. Patient states he does not want to be seen anymore and has declined any further testing. I did recommend blood work, possible imaging, patient declined. I did stress of the consequences, possible , he has continued to decline any further workup or treatment. Patient does not appear to be under the influence, he is able to make his decisions. Patient states he feels absolutely fine and wants to go home. Patient was discharge. Strict return parameters were discussed with the patient and he verbalized understanding. Case discussed with Dr. Paz. Disposition Clinical Impression: Allergy Disposition: HOME SELF-CARE Condition: Stable Instructions (If sedation given, give patient instructions): Normal Exam (ED) Additional Instructions: Please return to the Emergency Department if symptoms worsen or any other concerns. Follow-up with PCP Is patient prescribed a controlled substance at d/c from ED?: No Referrals: None,Stated [Primary Care Provider] - 1-2 days
== END 2020-04-23 14:10 | disposition home or self-care (01) ==
LOC: EC 13:11
DX: T78.40XA Allergy, unspecified, initial encounter (principal); F17.200 Nicotine dependence, unspecified, uncomplicated; Z91.018 Allergy to other foods
CPT/HCPCS: 99283

== ENCOUNTER 2024-03-12 17:22 | Observation (INO) | payer OTHER ==
--- NOTE | 2024-03-12 17:33 | ED ---
Alcohol HPI - General Source: RN notes reviewed <Natalia Perkins - Last Filed: 03/12/24 17:32> <Zane Paz - Last Filed: 03/12/24 19:41> - General Stated Complaint: Detox, withdrawals Time Seen by Provider: 03/12/24 17:32 - History of Present Illness Initial Comments: Quick [id number] male with history of alcohol use disorder presenting to the ER with chief complaint of alcohol withdrawals. States he feels shaky and feels as though he is "close to having a seizure". States last alcoholic drink was 2 hours ago, however reports he has been drinking less than usual. (Natalia Perkins) - Related Data Home Medications Medication Instructions Recorded Confirmed No Known Home Medications 03/12/24 03/12/24 Allergies Allergy/AdvReac Type Severity Reaction Status Date / Time chocolate flavor Allergy Rash/Hives Verified 03/12/24 19:27 coconut oil Allergy Rash/Hives Verified 03/12/24 19:27 pineapple Allergy Rash/Hives Verified 03/12/24 19:27 Review of Systems ROS Other: All systems not noted in ROS Statement are negative. <Natalia Perkins - Last Filed: 03/12/24 17:32> ROS Other: All systems not noted in ROS Statement are negative. <Zane Paz - Last Filed: 03/12/24 19:41> ROS Statement: Those systems with pertinent positive or pertinent negative responses have been documented in the HPI. Past Medical History Past Medical History: Hypertension, Pneumonia, Seizure Disorder Additional Past Medical History / Comment(s): VERTIGO IN PAST,ETOH ABUSE, WITHDRAWLS/DT"S. SEIZURE x2 D/T ETOH , chronic alcoholic thrombocytopenia History of Any Multi-Drug Resistant Organisms: None Reported Past Surgical History: Orthopedic Surgery Additional Past Surgical History / Comment(s): RT WRIST SX Past Anesthesia/Blood Transfusion Reactions: No Reported Reaction Additional Past Anesthesia/Blood Transfusion Reaction / Comment(s): CLAUSTERPHOBIA Past Psychological History: Anxiety, Depression Smoking Status: Current some day smoker Past Alcohol Use History: Abuse, Daily, Heavy Past Drug Use History: None Reported - Past Family History Mother Family Medical History: Fibromyalgia, Rheumatoid Arthritis (RA) Father Family Medical History: Osteoarthritis (OA) Additional Family Medical History / Comment(s): BACK PROBLEMS <GregorioNatalia - Last Filed: 03/12/24 17:32> General Exam <PerkinsNatalia - Last Filed: 03/12/24 17:32> - General Exam Comments Initial Comments: Visual Physical Exam General: Well-appearing, nontoxic, no acute distress. Head: Normocephalic, atraumatic Eyes: PERRLA, EOMI ENT: Airway patent Chest: Nonlabored breathing Skin: No visual rash, normal skin tone Neuro: Alert and oriented 3 Musculoskeletal: No gross abnormalities (GregorioNatalia) Course Vital Signs 03/12/24 17:50 Temperature 98.0 F Pulse Rate 89 Respiratory 18 Rate Blood Pressure 125/76 O2 Sat by Pulse 95 Oximetry Medical Decision Making <GregorioJaquelineNatalia - Last Filed: 03/12/24 17:32> - Lab Data Result diagrams: 03/12/24 18:10 03/12/24 18:10 <Zane Paz - Last Filed: 03/12/24 19:41> - Medical Decision Making I completed the quick note portion of this chart signed Natalia Perkins PA-C (Natalia Perkins) Was pt. sent in by a medical professional or institution ([facility], [facility], urgent care, hospital, or longterm...) When possible be specific @ -No Did you speak to anyone other than the patient for history (EMS, parent, family, police, friend...)? What history was obtained from this source @ -No Did you review nursing and triage notes (agree or disagree)? Why? @ -I reviewed and agree with nursing and triage notes Were old charts reviewed (outside hosp., previous admission, EMS record, old EKG, old radiological studies, urgent care reports/EKG's, longterm records)? Report findings @ -No old charts were reviewed Differential Diagnosis: Alcohol intoxication, alcohol withdrawal seizure, delirium tremens EKG interpreted by me (3pts min.). @ -As above X-rays interpreted by me (1pt min.). @ -Sinus rhythm rate of 79, HI interval 166, QRS duration 93, QTc [address] segment elevation. CT interpreted by me (1pt min.). @ -None done U/S interpreted by me (1pt. min.). @ -None done What testing was considered but not performed or refused? (CT, X-rays, U/S, labs)? Why? @ -None What meds were considered but not given or refused? Why? @ -None Did you discuss the management of the patient with other professionals (professionals i.e. , PA, [facility], lab, RT, psych nurse, social sciences chair, material clerk, teacher, financial administration officer, manager case management)? Give summary @ -Dr. Crockett Was smoking cessation discussed for >3mins.? @ -No Was critical care preformed (if so, how long)? @ -No Were there social determinants of health that impacted care today? How? (Homelessness, low income, unemployed, alcoholism, drug addiction, transportation, low edu. Level, literacy, decrease access to med. care, assisted, rehab)? @ -No Was there de-escalation of care discussed even if they declined (Discuss DNR or withdrawal of care, Hospice)? DNR status @ -No What co-morbidities impacted this encounter? (DM, HTN, Smoking, COPD, CAD, Cancer, CVA, ARF, Chemo, Hep., AIDS, mental health diagnosis, sleep apnea, morbi d obesity)? @ -None Was patient admitted / discharged? Hospital course, mention meds given and rout e, prescriptions, significant lab abnormalities, going to OR and other pertinent info. @ -Patient admitted with alcohol intoxication, alcohol level 430 Undiagnosed new problem with uncertain prognosis? @ -No Drug Therapy requiring intensive monitoring for toxicity (Heparin, Nitro, Insulin, Cardizem)? @ -No Were any procedures done? @ -No Diagnosis/symptom? @Acute alcohol intoxication Acute, or Chronic, or Acute on Chronic? @ -Acute Uncomplicated (without systemic symptoms) or Complicated (systemic symptoms)? @ -Default Side effects of treatment? @ -No Exacerbation, Progression, or Severe Exacerbation? @ -No Poses a threat to life or bodily function? How? (Chest pain, USA, DC, pneumonia, PE, COPD, DKA, ARF, appy, cholecystitis, CVA, Diverticulitis, Homicidal, Suicidal, threat to staff... and all critical care pts) @ -[Yes, alcohol poisoning, delirium tremens, alcohol withdrawal seizure (Zane Paz) - Lab Data Lab Results 03/12/24 03/12/24 Range/Units 18:10 18:10 WBC 5.3 (3.8-10.6) k/uL RBC 5.47 (4.30-5.90) m/uL Hgb 16.6 (13.0-17.5) gm/dL Hct 48.9 (39.0-53.0) % MCV 89.3 (80.0-100.0) fL MCH 30.4 (25.0-35.0) pg MCHC 34.0 (31.0-37.0) g/dL RDW 13.3 (11.5-15.5) % Plt Count 409 (150-450) k/uL MPV 6.6 Neutrophils % 53 % Lymphocytes % 31 % Monocytes % 11 % Eosinophils % 1 % Basophils % 1 % Neutrophils # 2.8 (1.3-7.7) k/uL Lymphocytes # 1.6 (1.0-4.8) k/uL Monocytes # 0.6 (0-1.0) k/uL Eosinophils # 0.1 (0-0.7) k/uL Basophils # 0.0 (0-0.2) k/uL Sodium 142 (137-145) mmol/L Potassium 4.9 (3.5-5.1) mmol/L Chloride 102 (98-107) mmol/L Carbon Dioxide 28 (22-30) mmol/L Anion Gap 12 mmol/L BUN 4 L (9-20) mg/dL Creatinine 0.59 L (0.66-1.25) mg/dL Est GFR (CKD-EPI)AfAm >90 (>60 ml/min/1.73 sqM) Est GFR (CKD-EPI)NonAf >90 (>60 ml/min/1.73 sqM) Glucose 85 (74-99) mg/dL Calcium 9.3 (8.4-10.2) mg/dL Magnesium 2.1 (1.6-2.3) mg/dL Total Bilirubin 0.3 (0.2-1.3) mg/dL AST 26 (17-59) U/L ALT 17 (4-49) U/L Alkaline Phosphatase 73 (38-126) U/L Total Protein 7.8 (6.3-8.2) g/dL Albumin 5.0 (3.5-5.0) g/dL Serum Alcohol 435 H* mg/dL Disposition <Natalia Perkins - Last Filed: 03/12/24 17:32> Is patient prescribed a controlled substance at d/c from ED?: No Time of Disposition: 19:41 <Zane Paz - Last Filed: 03/12/24 19:41> Clinical Impression: Alcoholic intoxication Disposition: ADMITTED IP TO THIS HOSP Condition: Stable Referrals: None,Stated [Primary Care Provider] - 1-2 days
[2024-03-12 18:39] LABS: ALT 17 U/L (4-49); AST 26 U/L (17-59); African American GFR (CKD) >90 (>60 ml/min/1.73 sqM); Alkaline Phosphatase 73 U/L (38-126); Anion Gap 12 mmol/L; Blood Urea Nitrogen 4 mg/dL (9-20); Calcium 9.3 mg/dL (8.4-10.2); Carbon Dioxide 28 mmol/L (22-30); Chloride 102 mmol/L (98-107); Glucose 85 mg/dL (74-99); Magnesium 2.1 mg/dL (1.6-2.3); Non-African American GFR(CKD) >90 (>60 ml/min/1.73 sqM); Potassium 4.9 mmol/L (3.5-5.1); Sodium 142 mmol/L (137-145); Total Bilirubin 0.3 mg/dL (0.2-1.3); Total Protein 7.8 g/dL (6.3-8.2)
[2024-03-12 18:46] LABS: Basophils % (A) 1 %; Eosinophils # (A) 0.1 k/uL (0-0.7); Eosinophils % (A) 1 %; HCT 48.9 % (39.0-53.0); HGB 16.6 gm/dL (13.0-17.5); Lymphocytes # (A) 1.6 k/uL (1.0-4.8); Lymphocytes % (A) 31 %; MCH 30.4 pg (25.0-35.0); MCV 89.3 fL (80.0-100.0); Mean Platelet Volume 6.6; Monocytes # (A) 0.6 k/uL (0-1.0); Monocytes % (A) 11 %; Neutrophils # (A) 2.8 k/uL (1.3-7.7); Neutrophils % (A) 53 %; Platelet Count 409 k/uL (150-450); RBC 5.47 m/uL (4.30-5.90); RDW 13.3 % (11.5-15.5); WBC 5.3 k/uL (3.8-10.6)
[2024-03-12 19:05] LABS: Alcohol 435 mg/dL
[2024-03-12] MEDS ORDERED: NALOXONE 0.4 MG/ML 1 ML VIAL IV PRN (19:39)
[2024-03-12] MEDS: LORazepam 2 MG/ML INJ IV PRN ×2 (20:47→22:00)
[2024-03-12] MEDS: SODIUM CHLORIDE 0.9% 1,000 ML IV SCH (20:48)
--- NOTE | 2024-03-12 23:06 | P.HPIM ---
History of Present Illness H&P Date: 03/12/24 Chief Complaint: alcohol intoxication Patient is a 44 male with chronic alcoholism presents with acute alcoholic withdrawal. Patient said that he felt shaky all day. Patient admits to visual and auditory hallucinations. Reports that he felt like ants were crawling on his chest this morning. He previously was sober for the last 5 years but started back up recently. His last drink was 4 days ago. He drinks as much beer as he can get his hands on. Patient admitted to having seizures twice in the waiting room. Patient admits to chills and fever. Denies nausea, vomiting, chest pain, shortness of breath, abdominal pain. Review of systems: Pertinent positives and negatives as discussed in HPI, a complete review of systems was performed and all other systems are negative. Physical examination: Vitals: General: non toxic, no distress, appears at stated age, normal weight Derm: no unusual rashes/lesions, warm Head: atraumatic, normocephalic, symmetric Eyes: EOMI, anicteric sclera, pupils equal round reactive to light ENT: Nose and ears atraumatic Mouth: no lip lesion, mucus membranes moist Cardiovascular: S1S2 reg, no murmur, positive dorsalis pedis pulse bilateral, no edema Lungs: CTA bilateral, no rhonchi, no rales, no accessory muscle use Abdominal: soft, nontender to palpation, no guarding Ext: muscle strength 5 out of 5 in all 4 extremities grossly, no gross muscle atrophy Neuro: CN II-XI grossly intact, no gross focal neuro deficits Psych: Alert, oriented to person, place, Assessment/Plan: Patient is a 44 male with chronic alcoholism presents with acute alcoholic withdrawal.ED documentation reviewed and case discussed with ED provider. Discussed with patient. The patient is admitted with an anticipated greater than 2 midnight stay for evaluation of acute alcoholic withdrawal. #. Acute alcohol intoxication monitor for alcohol withdrawal Serum alcohol 430 EKG independently interpreted displayed sinus rhythm, rate 79 bpm, QTc 402 MS Cardiac monitoring Seizure precaution Fall precautions Benzo per CIWA protocol Monitor for hypoglycemia Order lipase Folic acid 1 mg p.o. daily Thiamine 100 mg p.o. daily Normal saline at 75 cc/HR blood work unremarkable WBC 5 , Hgn 16.6, Na 142, K 4.9 , BUN 4 cr 0.59 F: NS @ 75 cc/HR E: Pleat electrolytes as needed N: Regular diet A: Fall and seizure precaution DVT prophylaxis: Lovenox 40 SQ daily CODE STATUS: Full Past Medical History Past Medical History: Hypertension, Pneumonia, Seizure Disorder Additional Past Medical History / Comment(s): VERTIGO IN PAST,ETOH ABUSE, WITHDRAWLS/DT"S. SEIZURE x2 D/T ETOH , chronic alcoholic thrombocytopenia History of Any Multi-Drug Resistant Organisms: None Reported Past Surgical History: Orthopedic Surgery Additional Past Surgical History / Comment(s): RT WRIST SX Past Anesthesia/Blood Transfusion Reactions: No Reported Reaction Additional Past Anesthesia/Blood Transfusion Reaction / Comment(s): CLAUSTERPHOBIA Past Psychological History: Anxiety, Depression Additional Psychological History / Comment(s): pt stated he is homeless. has been to rehab for etoh in past several times and wishes to go back.. 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 Smoking Status: Current every day smoker Past Alcohol Use History: Abuse, Daily, Heavy Additional Past Alcohol Use History / Comment(s): pt admits to drinking at least. 15-20 tall(24 ounce) cans of beer per day Past Drug Use History: None Reported Additional Drug Use History / Comment(s): previous went to [place] for alcohol abuse tx - Past Family History Mother Family Medical History: Fibromyalgia, Rheumatoid Arthritis (RA) Father Family Medical History: Osteoarthritis (OA) Additional Family Medical History / Comment(s): BACK PROBLEMS Medications and Allergies Home Medications Medication Instructions Recorded Confirmed Type No Known Home Medications 03/12/24 03/12/24 History Allergies Allergy/AdvReac Type Severity Reaction Status Date / Time chocolate flavor Allergy Rash/Hives Verified 03/12/24 19:27 coconut oil Allergy Rash/Hives Verified 03/12/24 19:27 pineapple Allergy Rash/Hives Verified 03/12/24 19:27 Physical Exam Vitals: Vital Signs Temp Pulse Resp BP Pulse Ox 03/12/24 21:13 98 18 123/77 96 03/12/24 19:46 64 16 135/78 97 03/12/24 17:50 98.0 F 89 18 125/76 95 Intake and Output 03/12/24 03/12/24 03/12/24 06:59 14:59 22:59 Other: Weight 63.503 kg Results CBC & Chem 7: 03/12/24 18:10 03/12/24 18:10 Labs: Abnormal Lab Results - Last 24 Hours (Table) 03/12/24 Range/Units 18:10 BUN 4 L (9-20) mg/dL Creatinine 0.59 L (0.66-1.25) mg/dL Serum Alcohol 435 H* mg/dL Thrombosis Risk Factor Assmnt - Choose All That Apply Any of the Below Risk Factors Present?: Yes Each Factor Represents 1 point: Age 41-60 years Other Risk Factors: No Other congenital or acquired thrombophilia - If yes, enter type in comment: No Thrombosis Risk Factor Assessment Total Risk Factor Score: 1 Thrombosis Risk Factor Assessment Level: Low Risk Assessment and Plan Assessment: I have seen and evaluated the patient today. I Discussed the case with the resident and agree with the resident's findings I edited the assessment and plan as necessary as documented in the resident's note.
[2024-03-12] MEDS: ENOXAPARIN 40 MG/0.4 ML SYRINGE SQ SCH (23:08)
[2024-03-12] MEDS: FOLIC ACID 1 MG TAB PO SCH (23:09)
[2024-03-12] MEDS: THIAMINE 100 MG TAB PO SCH (23:09)
[2024-03-13] MEDS: LORazepam 2 MG/ML INJ IV PRN (03:38)
[2024-03-13] MEDS: PANTOPRAZOLE 40 MG TABLET PO SCH (06:24)
[2024-03-13 08:35] VITALS: BP 132/68; PULSE 115; RESP 19; TEMP 99.7
[2024-03-13 09:18] LABS: Basophils # (A) 0.06 X 10*3/uL (0.00-0.10); Basophils % (A) 0.6 %; Eosinophils # (A) 0.13 X 10*3/uL (0.04-0.35); Eosinophils % (A) 1.2 %; HCT 43.9 % (39.6-50.0); HGB 14.8 g/dL (13.0-17.0); Lymphocytes # (A) 1.46 X 10*3/uL (0.90-5.00); Lymphocytes % (A) 13.6 %; MCH 30.1 pg (27.0-32.0); MCHC 33.7 g/dL (32.0-37.0); MCV 89.4 FL (80.0-97.0); Mean Platelet Volume 8.4 FL (9.5-12.2); Monocytes # (A) 1.15 X 10*3/uL (0.20-1.00); Monocytes % (A) 10.7 %; NRBC Per 100 WBC 0 X 10*3/uL (0.00-0.01); Neutrophils # (A) 7.93 X 10*3/uL (1.80-7.70); Neutrophils % (A) 73.6 %; Platelet Count 370 X 10*3/uL (140-440); RBC 4.91 X 10*6/uL (4.40-5.60); RDW 13.2 % (11.5-14.5); WBC 10.76 X 10*3/uL (4.50-10.00)
[2024-03-13 09:37] LABS: ALT 25 U/L (10-49); AST 27 U/L (14-35); Albumin 4.3 g/dL (3.8-4.9); Albumin/Globulin Ratio 2.15 Ratio (1.60-3.17); Alkaline Phosphatase 88 U/L (41-126); BUN/Creat Ratio 14.67 Ratio (12.00-20.00); Blood Urea Nitrogen 8.8 mg/dL (9.0-27.0); Calcium 8.7 mg/dL (8.7-10.3); Carbon Dioxide 23.4 mmol/L (21.6-31.8); Chloride 98 mmol/L (96-109); Glucose 87 mg/dL (70-110); Magnesium 1.8 mg/dL (1.5-2.4); Phosphorus 3.9 mg/dL (2.4-5.1); Sodium 134 mmol/L (135-145); Total Bilirubin 0.2 mg/dL (0.3-1.2); Total Protein 6.3 g/dL (6.2-8.2)
--- NOTE | 2024-03-13 10:10 | P.PN ---
Subjective Progress Note Date: 03/13/24 Hospital course: Patient is a 44-year-old male with a past medical history of alcoholism and hypertension not on antihypertensive medications, history of previous reported alcohol withdrawal seizure. He presented to the hospital on 03/12/2024 with alcohol intoxication. Upon arrival to our facility, patient underwent evaluation in the emergency department. Vital signs upon arrival show blood pressure 125/76, heart rate 89, respiratory rate 18, temp 98.0 F, and SpO2 of 95% on room air. EKG completed showing normal sinus rhythm at 79 bpm with no noted T wave or ST abnormalities showing no signs of acute ischemia upon personal review and interpretation. Labs completed and reviewed. CBC unremarkable. BMP normal findings. Magnesium 2.1. Liver profile normal findings. Lipase 127. And serum alcohol level was elevated at 435. Patient was admitted under our services for medical detox. Physical exam: Vital signs reviewed and stable. General: Nontoxic, no distress and appears stated age. Derm: Skin warm and dry, normal coloration for ethnicity. Head: Atraumatic, normocephalic and symmetric. Eyes: EOM's intact, no lid lag, and anicteric sclera Mouth: no lip lesions, mucus membranes moist Cardiovascular: regular rate and rhythm with normal S1S2, no murmur, positive posterior tibial pulses bilaterally, and cap refill < 2 seconds. Lungs: Respirations even, regular, and unlabored on room air. Lungs CTA bilaterally, no rhonchi, no rales, no wheezing, and no accessory muscle usage. Abdominal: soft, nontender to palpation, no guarding, no appreciable organo megaly Ext: ROM intact. No gross muscle atrophy, no edema, no contractures Neuro: Speech clear, face symmetrical and CN II-XII grossly intact with no noted focal neuro deficits Psych: Alert and oriented to person, place, time, and situation. Appropriate and pleasant affect. Assessment and Plan of Care: Alcohol withdrawal Alcohol intoxication upon arrival -Continue monitoring of CIWA scores and patient to be medicated with Ativan 0.5 mg every 4 hours as needed for CIWA score of 4-5, Ativan 1 mg every 4 hours for CIWA score of 6-7, Ativan 2 mg every 3 hours CIWA score of 8-9, and Ativan 2 mg every 2 hours forr CIWA score of 10 or greater. -Continuous IV hydration. -Thiamine 100 mg daily, and Multivitamin daily, and Folate 1 mg daily -Seizure, fall, aspiration, and elopement precautions in place. -Urine drug screen -Continued close monitoring of electrolytes and replace as needed. -Telemetry monitoring. Patient will be medically sober around 11 AM. Anticipate discharge once medical ly and clinically sober. Data reviewed: Morning labs reviewed. CBC showing mild leukocytosis with WBC count of 10.76 otherwise normal findings. BMP showing mild hyponatremia with sodium of 134. Magnesium 1.8. Potassium 4.0. Vital signs reviewed. Blood pressure 132/68, heart rate 115, respiratory rate 19, temp 99.7 F, and SpO2 of 97% on room air. CODE STATUS: Full code DVT prophylaxis: Lovenox Anticipated discharge date: Likely later today Anticipated discharge place: Home Patient was seen independently by Nurse Pracitioner. This document was prepared using [employer] dictation software. Please allow for errors in manager corporate communications, while rare they do occur. I reviewed the documentation as provided by the JAVIER above, who is the original author of this note. I agree with the documented assessment and plan, with the following changes: none Objective - Vital Signs Vital signs: Vital Signs Temp 98.3 F 03/13/24 02:00 Pulse 103 H 03/13/24 02:00 Resp 18 03/12/24 21:13 BP 137/67 03/13/24 02:00 Pulse Ox 95 03/13/24 02:00 FiO2 Intake & Output 03/12/24 03/13/24 03/13/24 18:59 06:59 18:59 Weight 63.503 kg 63.503 kg - Labs CBC & Chem 7: 03/13/24 05:19 03/13/24 05:19 Labs: Abnormal Lab Results - Last 24 Hours (Table) 03/12/24 Range/Units 18:10 BUN 4 L (9-20) mg/dL Creatinine 0.59 L (0.66-1.25) mg/dL Serum Alcohol 435 H* mg/dL
--- NOTE | 2024-03-13 10:13 | P.DS ---
Providers Date of admission: 03/12/24 19:40 Expected date of discharge: 03/13/24 Attending physician: Taya White MD Primary care physician: Stated None Hospital Course: THIS IS NOT A DISCHARGE SUMMARY, BUT A SUMMARY OF CARE, PER NURSING STAFF, PT LEFT AGAINST MEDICAL ADVICE on 03/13/2024 at 9:06 AM. Discharge Diagnosis: Alcohol withdrawal Alcohol intoxication upon arrival Hospital Course: Patient is a 44-year-old male with a past medical history of alcoholism and hypertension not on antihypertensive medications, history of previous reported alcohol withdrawal seizure. He presented to the hospital on 03/12/2024 with alcohol intoxication. Upon arrival to our facility, patient underwent evaluatio n in the emergency department. Vital signs upon arrival show blood pressure 125/76, heart rate 89, respiratory rate 18, temp 98.0 F, and SpO2 of 95% on room air. EKG completed showing normal sinus rhythm at 79 bpm with no noted T wave or ST abnormalities showing no signs of acute ischemia upon personal review and interpretation. Labs completed and reviewed. CBC unremarkable. BMP normal findings. Magnesium 2.1. Liver profile normal findings. Lipase 127. And serum alcohol level was elevated at 435. Patient was admitted under our services for medical detox. Patient was estimated to be medically/clinically sober around 11 AM, however notified by RN that patient left AGAINST MEDICAL ADVICE on 03/13/2024 at 9:06 AM. PT LEFT AGAINST MEDICAL ADVICE on 03/13/2024 at 9:06 AM. Patient was seen independently by Nurse Practitioner. This document was prepared using [employer] dictation software. Please allow for errors in relay mechanic while rare they do occur. I reviewed the documentation as provided by the JAVIER above, who is the original author of this note. I agree with the documented assessment and plan, with the following changes: none Patient Condition at Discharge: Undetermined Plan - Discharge Summary Discharge Rx Participant: No New Discharge Prescriptions: No Action No Known Home Medications Discharge Medication List No Known Home Medications 03/12/24 [History] Follow up Appointment(s)/Referral(s): None,Stated [Primary Care Provider] - 1-2 days Patient Instructions/Handouts: Seizure/Epilepsy Discharge Instructions & Follow-Up Discharge Disposition: LEFT AGAINST MEDICAL ADVICE
== END 2024-03-13 09:03 | disposition left against medical advice (07) ==
LOC: EC 17:22 → 4SSUR 19:40
PROVIDERS: ADMIT Internal Medicine; ATTEND Internal Medicine
DX: F10.239 Alcohol dependence with withdrawal, unspecified (principal); F10.229 Alcohol dependence with intoxication, unspecified; I10 Essential (primary) hypertension; E87.1 Hypo-osmolality and hyponatremia; D72.829 Elevated white blood cell count, unspecified; F17.200 Nicotine dependence, unspecified, uncomplicated; Y90.8 Blood alcohol level of 240 mg/100 ml or more; Z91.018 Allergy to other foods; Z53.29 Procedure and treatment not carried out because of patient's decision for other reasons
CPT/HCPCS: 36415; 80053; 80320; 83690; 83735; 84100; 85025; 93005; 96374; 96376; 99285

== ENCOUNTER 2024-03-16 12:27 | Emergency (ER) | payer OTHER ==
[2024-03-16 12:34] VITALS: RESP 16; TEMP 98
--- NOTE | 2024-03-16 14:24 | ED ---
Alcohol HPI - General Chief Complaint: Alcohol Stated Complaint: [place] [facility] clearance/[place] Time Seen by Provider: 03/16/24 12:39 Source: patient, RN notes reviewed Mode of arrival: ambulatory Limitations: no limitations - History of Present Illness Initial Comments: 44-year-old male with a history of alcohol abuse presents emergency department with police officials for [place] [facility] clearance. Patient states that he has gone through alcohol withdrawal in the past. Currently patient is showing signs of obvious intoxication. - Related Data Home Medications Medication Instructions Recorded Confirmed No Known Home Medications 03/12/24 03/12/24 Allergies Allergy/AdvReac Type Severity Reaction Status Date / Time chocolate flavor Allergy Rash/Hives Verified 03/16/24 12:35 coconut oil Allergy Rash/Hives Verified 03/16/24 12:35 pineapple Allergy Rash/Hives Verified 03/16/24 12:35 Review of Systems ROS Statement: Those systems with pertinent positive or pertinent negative responses have been documented in the HPI. ROS Other: All systems not noted in ROS Statement are negative. Past Medical History Past Medical History: Hypertension, Pneumonia, Seizure Disorder Additional Past Medical History / Comment(s): VERTIGO IN PAST,ETOH ABUSE, WITHDRAWLS/DT"S. SEIZURE x2 D/T ETOH , chronic alcoholic thrombocytopenia History of Any Multi-Drug Resistant Organisms: None Reported Past Surgical History: Orthopedic Surgery Additional Past Surgical History / Comment(s): RT WRIST SX Past Anesthesia/Blood Transfusion Reactions: No Reported Reaction Additional Past Anesthesia/Blood Transfusion Reaction / Comment(s): CLAUSTERPHOBIA Past Psychological History: Anxiety, Depression Smoking Status: Current every day smoker Past Alcohol Use History: Abuse, Daily, Heavy Past Drug Use History: None Reported - Past Family History Mother Family Medical History: Fibromyalgia, Rheumatoid Arthritis (RA) Father Family Medical History: Osteoarthritis (OA) Additional Family Medical History / Comment(s): BACK PROBLEMS General Exam Limitations: no limitations General appearance: alert, in no apparent distress, appears intoxicated Head exam: Present: atraumatic, normocephalic, normal inspection Eye exam: Present: normal appearance, PERRL, EOMI. Absent: scleral icterus, conjunctival injection, periorbital swelling ENT exam: Present: normal exam, mucous membranes moist Neck exam: Present: normal inspection. Absent: tenderness, meningismus, lymphadenopathy Respiratory exam: Present: normal lung sounds bilaterally. Absent: respiratory distress, wheezes, rales, rhonchi, stridor Cardiovascular Exam: Present: regular rate, normal rhythm, normal heart sounds. Absent: systolic murmur, diastolic murmur, rubs, gallop, clicks GI/Abdominal exam: Present: soft, normal bowel sounds. Absent: distended, tenderness, guarding, rebound, rigid Neurological exam: Present: alert, oriented X3, CN II-XII intact Course Vital Signs 03/16/24 03/16/24 12:31 14:46 Temperature 98 F 98 F Pulse Rate 80 78 Respiratory 16 16 Rate Blood Pressure 124/84 138/78 O2 Sat by Pulse 97 97 Oximetry Medical Decision Making - Medical Decision Making Was pt. sent in by a medical professional or institution (, PA, LOGGING ASSISTANT, urgent care, hospital, or long-term...) When possible be specific @ -Was brought in by law officials for [place] [facility] clearance Did you speak to anyone other than the patient for history (EMS, parent, family, police, friend...)? What history was obtained from this source @ -No Did you review nursing and triage notes (agree or disagree)? Why? @ -I reviewed and agree with nursing and triage notes Were old charts reviewed (outside hosp., previous admission, EMS record, old EKG, old radiological studies, urgent care reports/EKG's, long-term records)? Report findings @ -No old charts were reviewed Differential Diagnosis (chest pain, altered mental status, abdominal pain women, abdominal pain men, vaginal bleeding, weakness, fever, dyspnea, syncope, headache, dizziness, GI bleed, back pain, seizure, CVA, palpatations, mental health, musculoskeletal)? @ -Differential Mental Health Depression, anxiety, bipolar, psychosis, schizophrenia, borderline personality, situational depression, adjustment disorder, behavioral disorder, brain tumor, malingering, substance abuse, encephalopathy, medication reaction, dementia, hypothyroidism, degenerative neurologic disorder, lupus.... This is not meant to be all-inclusive list EKG interpreted by me (3pts min.). @ -None X-rays interpreted by me (1pt min.). @ -None done CT interpreted by me (1pt min.). @ -None done U/S interpreted by me (1pt. min.). @ -None done What testing was considered but not performed or refused? (CT, X-rays, U/S, labs)? Why? @ -None What meds were considered but not given or refused? Why? @ -None Did you discuss the management of the patient with other professionals (professionals i.e. , PA, LOGGING ASSISTANT, lab, RT, psych nurse, perinatal social worker, mushroom growing supervisor, teacher, special assets officer, caseworker protective services)? Give summary @ -No Was smoking cessation discussed for >3mins.? @ -No Was critical care preformed (if so, how long)? @ -No Were there social determinants of health that impacted care today? How? (Homelessness, low income, unemployed, alcoholism, drug addiction, transportation, low edu. Level, literacy, decrease access to med. care, [place] [facility], rehab)? @ -No Was there de-escalation of care discussed even if they declined (Discuss DNR or withdrawal of care, Hospice)? DNR status @ -No What co-morbidities impacted this encounter? (DM, HTN, Smoking, COPD, CAD, Cancer, CVA, ARF, Chemo, Hep., AIDS, mental health diagnosis, sleep apnea, morbid obesity)? @ -None Was patient admitted / discharged? Hospital course, mention meds given and route, prescriptions, significant lab abnormalities, going to OR and other pertinent info. @ -Charge. Patient was in the waiting room for approximately an hour and a half and recheck of blood alcohol level via breath testing was within normal limits and police officials are requesting patient to be brought to incarceration. Physical examination completed the patient with no acute findings. He is provided with a dose of Ativan for anxiety and is stable for discharge and medical clearance for incarceration. Discussed with Dr. Abdi Undiagnosed new problem with uncertain prognosis? @ -No Drug Therapy requiring intensive monitoring for toxicity (Heparin, Nitro, Insulin, Cardizem)? @ -No Were any procedures done? @ -No Diagnosis/symptom? @ -alcohol abuse, encounter for medical clearance for incarceration Acute, or Chronic, or Acute on Chronic? @ -acute Uncomplicated (without systemic symptoms) or Complicated (systemic symptoms)? @ -uncomplicated Side effects of treatment? @ -No Exacerbation, Progression, or Severe Exacerbation? @ -No Poses a threat to life or bodily function? How? (Chest pain, [place], [place], pneumonia, PE, COPD, DKA, ARF, appy, cholecystitis, CVA, Diverticulitis, Homicidal, Suicidal, threat to staff... and all critical care pts) @ -No Disposition Clinical Impression: Alcohol abuse, Alcohol intoxication, Medical clearance for incarceration Disposition: HOME SELF-CARE Condition: Good Instructions (If sedation given, give patient instructions): Alcohol Intoxication (ED) Additional Instructions: Please return to the Emergency Department if symptoms worsen or any other concerns. Is patient prescribed a controlled substance at d/c from ED?: No Referrals: None,Stated [Primary Care Provider] - 1-2 days Time of Disposition: 14:38
[2024-03-16] MEDS: LORazepam 1 MG TAB PO STA (14:41)
[2024-03-16 14:47] VITALS: BP 138/78; PULSE 78
== END 2024-03-16 14:46 | disposition home or self-care (01) ==
LOC: EC 12:27
CPT/HCPCS: 99284